=== PATIENT | female | born 1960 | race Caucasian/White ===

== ENCOUNTER → 2016-07-11 | Outpatient (CLI) | payer OTHER ==
[~2016-07-11] VITALS: Ht 165.1 cm; Wt 122.5 kg
[~2016-07-11] MED LIST: ALPR.25T PO; B.AN1CAP; CALC1TAB76; CHOL200041 PO; CYCL10TA9; FLUO40CA12 PO; LEVO25TA5 PO; MELO-195; MULT1TAB69 PO; NAPR-689 PO; NS IV 1000 ML 1,000 ML IV ONE; NS IV 1000 ML 1,000 ML ONE; OMEG1CAP24 PO; ONDANSETRON 4 MG/2 ML (SDV) Z0FRAN IV ONE; PANT40TA2 PO; PHEN37.555; TRAM50TA2 PO; [UNRECOGNIZED DRUG - OTHER]
--- OUTSIDE RECORDS SUMMARY | 2016-07-11 10:40 | XMS REPORT | Continuity of Care Document ---
Author Author [facility] Address Unknown Phone Unavailable Allergies Active Description Code Type Severity Reaction Onset Reported/Identified Relationship to Patient Clinical Status Yes codeine [id number] Drug Allergy Mild N/A 08/02/2009 Yes codeine Drug Allergy N/A N/A 10/19/2010 Medications Problems Date Dx Coded Attending Type Code Diagnosis Diagnosed By 08/05/2009 Ot 214.1 LIPOMA SKIN NEC 10/19/2010 599.70 blood in urine 10/19/2010 599.70 BLOOD IN URINE 10/19/2010 599.70 BLOOD IN URINE 10/19/2010 599.70 BLOOD IN URINE 10/19/2010 MARICEL PIERRE DDS 599.70 BLOOD IN URINE 10/19/2010 ALIYA NGUYEN APRN 599.70 BLOOD IN URINE 10/19/2010 SUSAN CHAIDEZ DO 599.70 BLOOD IN URINE 10/19/2010 JORDYN SANDERS PHD 599.70 BLOOD IN URINE 10/19/2010 JORDYN SANDERS PHD 599.70 BLOOD IN URINE 11/02/2010 789.04 ABDOMINAL PAIN LEFT LOWER QUADRANT 11/02/2010 789.04 ABDOMINAL PAIN LEFT LOWER QUADRANT 11/02/2010 789.04 ABDOMINAL PAIN LEFT LOWER QUADRANT 11/02/2010 789.04 ABDOMINAL PAIN LEFT LOWER QUADRANT 11/02/2010 MARICEL PIERRE DDS 789.04 ABDOMINAL PAIN LEFT LOWER QUADRANT 11/02/2010 ALIYA NGUYEN APRN 789.04 ABDOMINAL PAIN LEFT LOWER QUADRANT 11/02/2010 SUSAN CHAIDEZ DO 789.04 ABDOMINAL PAIN LEFT LOWER QUADRANT 11/02/2010 JORDYN SANDERS PHD 789.04 ABDOMINAL PAIN LEFT LOWER QUADRANT 11/02/2010 JORDYN SANDERS PHD 789.04 ABDOMINAL PAIN LEFT LOWER QUADRANT 11/14/2010 826.0 CLOSED FRACTURE OF ONE OR MORE PHALANGES OF FOOT 11/14/2010 826.0 CLOSED FRACTURE OF ONE OR MORE PHALANGES OF FOOT 11/14/2010 826.0 CLOSED FRACTURE OF ONE OR MORE PHALANGES OF FOOT 11/14/2010 826.0 CLOSED FRACTURE OF ONE OR MORE PHALANGES OF FOOT 11/14/2010 MARICEL PIERRE DDS B 826.0 CLOSED FRACTURE OF ONE OR MORE PHALANGES OF FOOT 11/14/2010 ALIYA NGUYEN APRN 826.0 CLOSED FRACTURE OF ONE OR MORE PHALANGES OF FOOT 11/14/2010 SUSAN CHAIDEZ DO 826.0 CLOSED FRACTURE OF ONE OR MORE PHALANGES OF FOOT 11/14/2010 JORDYN SANDERS PHD 826.0 CLOSED FRACTURE OF ONE OR MORE PHALANGES OF FOOT 11/14/2010 JORDYN SANDERS PHD 826.0 CLOSED FRACTURE OF ONE OR MORE PHALANGES OF FOOT 11/16/2010 783.1 WEIGHT GAIN ABNORMAL 11/16/2010 783.1 WEIGHT GAIN ABNORMAL 11/16/2010 783.1 WEIGHT GAIN ABNORMAL 11/16/2010 783.1 WEIGHT GAIN ABNORMAL 11/16/2010 MARICEL PIERRE DDS 783.1 WEIGHT GAIN ABNORMAL 11/16/2010 ALIYA NGUYEN APRN 783.1 WEIGHT GAIN ABNORMAL 11/16/2010 SUSAN CHAIDEZ DO 783.1 WEIGHT GAIN ABNORMAL 11/16/2010 JORDYN SANDERS PHD 783.1 WEIGHT GAIN ABNORMAL 11/16/2010 JORDYN SANDERS PHD 783.1 WEIGHT GAIN ABNORMAL 12/15/2010 272.4 HYPERLIPIDEMIA 12/15/2010 278.01 OBESITY MORBID 12/15/2010 272.4 HYPERLIPIDEMIA 12/15/2010 278.01 OBESITY MORBID 12/15/2010 272.4 HYPERLIPIDEMIA 12/15/2010 278.01 OBESITY MORBID 12/15/2010 272.4 HYPERLIPIDEMIA 12/15/2010 278.01 OBESITY MORBID 12/15/2010 MARICEL PIERRE DDS B 272.4 HYPERLIPIDEMIA 12/15/2010 MARICEL PIERRE DDS B 278.01 OBESITY MORBID 12/15/2010 ALIYA NGUYEN APRN 272.4 HYPERLIPIDEMIA 12/15/2010 ALIYA NGUYEN APRN 278.01 OBESITY MORBID 12/15/2010 SUSAN CHAIDEZ DO K 272.4 HYPERLIPIDEMIA 12/15/2010 SUSAN CHAIDEZ DO K 278.01 OBESITY MORBID 12/15/2010 JORDYN SANDERS PHD 272.4 HYPERLIPIDEMIA 12/15/2010 JORDYN SANDERS PHD 278.01 OBESITY MORBID 12/15/2010 JORDYN SANDERS PHD 272.4 HYPERLIPIDEMIA 12/15/2010 JORDYN SANDERS PHD 278.01 OBESITY MORBID 01/09/2011 627.3 Vaginitis Postmenopausal Atrophic 01/09/2011 V72.31 Routine Pelvic Exam 01/09/2011 627.3 Vaginitis Postmenopausal Atrophic 01/09/2011 V72.31 Routine Pelvic Exam 01/09/2011 627.3 Vaginitis Postmenopausal Atrophic 01/09/2011 V72.31 Routine Pelvic Exam 01/09/2011 627.3 Vaginitis Postmenopausal Atrophic 01/09/2011 V72.31 Routine Pelvic Exam 01/09/2011 MARICEL PIERRE DDS 627.3 Vaginitis Postmenopausal Atrophic 01/09/2011 MARICEL PIERRE DDS V72.31 Routine Pelvic Exam 01/09/2011 ALIYA NGUYEN APRN 627.3 Vaginitis Postmenopausal Atrophic 01/09/2011 ALIYA NGUYEN APRN V72.31 Routine Pelvic Exam 01/09/2011 SUSAN CHAIDEZ DO 627.3 Vaginitis Postmenopausal Atrophic 01/09/2011 SUSAN CHAIDEZ DO V72.31 Routine Pelvic Exam 01/09/2011 JORDYN SANDERS PHD 627.3 Vaginitis Postmenopausal Atrophic 01/09/2011 JORDYN SANDERS PHD V72.31 Routine Pelvic Exam 01/09/2011 JORDYN SANDERS PHD 627.3 Vaginitis Postmenopausal Atrophic 01/09/2011 JORDYN SANDERS PHD V72.31 Routine Pelvic Exam 01/31/2011 401.9 Unspecified Essential Hypertension 01/31/2011 401.9 Unspecified Essential Hypertension 01/31/2011 401.9 Unspecified Essential Hypertension 01/31/2011 401.9 Unspecified Essential Hypertension 01/31/2011 MARICEL PIERRE DDS 401.9 Unspecified Essential Hypertension 01/31/2011 ALIYA NGUYEN APRN 401.9 Unspecified Essential Hypertension 01/31/2011 SUSAN CHAIDEZ DO 401.9 Unspecified Essential Hypertension 01/31/2011 JORDYN SANDERS PHD 401.9 Unspecified Essential Hypertension 01/31/2011 JORDYN SANDERS PHD 401.9 Unspecified Essential Hypertension 03/20/2011 079.99 VIRAL SYNDROME 03/20/2011 079.99 VIRAL SYNDROME 03/20/2011 079.99 VIRAL SYNDROME 03/20/2011 079.99 VIRAL SYNDROME 03/20/2011 IGNACIO NADINE, MARICEL B 079.99 VIRAL SYNDROME 03/20/2011 ALIYA NGUYEN APRN 079.99 VIRAL SYNDROME 03/20/2011 SUSAN CHAIDEZ DO 079.99 VIRAL SYNDROME 03/20/2011 TOMMY GONZALEZ, JORDYN Morgan 079.99 VIRAL SYNDROME 03/20/2011 TOMMY GONZALEZ, JORDYN Morgan 079.99 VIRAL SYNDROME 09/09/2012 461.9 SINUSITIS ACUTE 09/09/2012 461.9 SINUSITIS ACUTE 09/09/2012 461.9 SINUSITIS ACUTE 09/09/2012 461.9 SINUSITIS ACUTE 09/09/2012 IGNACIOJEANETTE MCCOY, MARICEL B 461.9 SINUSITIS ACUTE 09/09/2012 ALIYA NGUYEN APRN 461.9 SINUSITIS ACUTE 09/09/2012 SUSAN CHAIDEZ DO 461.9 SINUSITIS ACUTE 09/09/2012 TOMMY GONZALEZ, JORDYN Morgan 461.9 SINUSITIS ACUTE 09/09/2012 TOMMY GONZALEZ, JORDYN Morgan 461.9 SINUSITIS ACUTE 09/18/2012 780.79 fatigue 09/18/2012 V76.10 BREAST CANCER SCREENING 09/18/2012 V76.51 COLON CANCER SCREENING 09/18/2012 780.79 fatigue 09/18/2012 V76.10 BREAST CANCER SCREENING 09/18/2012 V76.51 COLON CANCER SCREENING 09/18/2012 780.79 fatigue 09/18/2012 V76.10 BREAST CANCER SCREENING 09/18/2012 V76.51 COLON CANCER SCREENING 09/18/2012 IGNACIO DDS, MARICEL B 780.79 fatigue 09/18/2012 IGNACIO DDS, MARICEL B V76.10 BREAST CANCER SCREENING 09/18/2012 IGNACIO DDS, MARICEL B V76.51 COLON CANCER SCREENING 09/18/2012 ALIYA NGUYEN APRN 780.79 fatigue 09/18/2012 ALIYA NGUYEN APRN V76.10 BREAST CANCER SCREENING 09/18/2012 ALIYA NGUYEN APRN V76.51 COLON CANCER SCREENING 09/18/2012 SUSAN CHAIDEZ DO 780.79 fatigue 09/18/2012 SUSAN CHAIDEZ DO V76.10 BREAST CANCER SCREENING 09/18/2012 SUSAN CHAIDEZ DO V76.51 COLON CANCER SCREENING 09/18/2012 JORDYN SANDERS PHD 780.79 fatigue 09/18/2012 JORDYN SANDERS PHD V76.10 BREAST CANCER SCREENING 09/18/2012 JORDYN SANDERS PHD V76.51 COLON CANCER SCREENING 09/18/2012 JORDYN SANDERS PHD 780.79 fatigue 09/18/2012 JORDYN SANDERS PHD V76.10 BREAST CANCER SCREENING 09/18/2012 JORDYN SANDERS PHD V76.51 COLON CANCER SCREENING 09/24/2012 268.9 VITAMIN D DEFICIENCY 09/24/2012 268.9 VITAMIN D DEFICIENCY 09/24/2012 268.9 VITAMIN D DEFICIENCY 09/24/2012 MARICEL PIERRE DDS 268.9 VITAMIN D DEFICIENCY 09/24/2012 ALIYA NGUYEN APRN 268.9 VITAMIN D DEFICIENCY 09/24/2012 SUSAN CHAIDEZ DO 268.9 VITAMIN D DEFICIENCY 09/24/2012 JORDYN SANDERS PHD 268.9 VITAMIN D DEFICIENCY 09/24/2012 JORDYN SANDERS PHD 268.9 VITAMIN D DEFICIENCY 12/29/2012 SALONI PINA, MICK Ot 202.80 OTH LYMPHOMAS EXTRANODAL SOLID ORGAN U 02/08/2013 ALIYA NGUYEN APRN 733.6 TIETZE'S DISEASE 02/08/2013 SUSAN CHAIDEZ DO 733.6 TIETZE'S DISEASE 02/08/2013 JORDYN SANDERS PHD 733.6 TIETZE'S DISEASE 02/08/2013 JORDYN SANDERS PHD 733.6 TIETZE'S DISEASE 05/07/2013 SUSAN CHAIDEZ DO 719.40 PAIN IN JOINT SITE UNSPECIFIED 05/07/2013 JORDYN SANDERS PHD 719.40 PAIN IN JOINT SITE UNSPECIFIED 05/07/2013 JORDYN SANDERS PHD 719.40 PAIN IN JOINT SITE UNSPECIFIED 08/21/2013 JORDYN SANDERS PHD 300.4 DYSTHYMIC DISORDER 08/21/2013 JORDYN SANDERS PHD 300.4 DYSTHYMIC DISORDER 09/25/2013 JORDYN SANDERS PHD 296.90 MOOD DISORDER NOS 09/25/2013 JORDYN SANDERS PHD 296.90 MOOD DISORDER NOS 09/29/2014 KIRSTY PINA, RIGO A Ot 327.23 OBSTRUCTIVE SLEEP APNEA (ADULT) ( PEDIATR 11/02/2014 FRANK PINA, PADMINI Beard Ot V76.51 SCREEN MAL NEOP-COLON 11/10/2014 FRANK PINA, PADMINI Beard Ot V72.84 12/02/2014 SALONI PINA, MICK Ot 202.80 12/08/2014 SALONI PINA, MICK Ot 202.80 12/09/2014 SALONI PINA, MICK Ot 202.80 12/16/2014 SALONI PINA, MICK Ot 202.80 12/21/2014 MADELIN DIANE DO Ot 780.57 12/21/2014 MADELIN DIAEN DO Ot 786.09 01/12/2015 SALONI PINA, VANDANA-SMOOTH Ot 202.80 01/27/2015 SALONI PINA, MICK Ot 202.80 OTH LYMPHOMAS EXTRANODAL SOLID ORGAN U 02/01/2015 CARLOS CANTU DOG TRAINER Ot Z12.31 02/04/2015 CARLOS CANTU DOG TRAINER Ot Z12.31 02/15/2015 CARLOS CANTU DOG TRAINER Ot Z12.31 02/26/2015 Ot R92.8 03/05/2015 Ot 599.70 03/05/2015 Ot 789.09 03/05/2015 Ot V76.12 03/05/2015 SUSAN CHAIDEZ DO Ot V76.12 03/05/2015 SALONI PINA, MICK Ot 202.80 03/05/2015 FRANK PINA, PADMINI Beard Ot V72.84 03/05/2015 MADELIN DIANE DO Ot 780.57 03/05/2015 MADELIN DIANE DO Ot 786.09 03/05/2015 CARLOS CANTU DOG TRAINER Ot Z12.31 03/05/2015 Ot R92.8 04/21/2015 MADELIN DIANE DO Ot 780.57 04/21/2015 MADELIN DIANE DO Ot 786.09 04/21/2015 Ot R92.8 01/20/2016 Ot 599.70 HEMATURIA, UNSPECIFIED 01/20/2016 Ot 789.09 ABDOMINAL PAIN, OTHER SPECIFIED SITE 01/20/2016 Ot V76.12 OTH SCREEN MAMMO-MALIGN NEOPLASM OF [place]ESH[place] 01/20/2016 SUSAN CHAIDEZ DO Ot V76.12 OTH SCREEN MAMMO-MALIGN NEOPLASM OF [place] 01/20/2016 SALONI PINA, MICK Ot 202.80 OTH LYMPHOMAS EXTRANODAL SOLID ORGAN U 01/20/2016 FRANK PINA, PADMINI Beard Ot V72.84 EXAM PRE-OPERATIVE NOS 01/20/2016 MADELIN DIANE DO Ot 780.57 UNSPECIFIED SLEEP APNEA 01/20/2016 MADELIN DIANE DO Ot 786.09 RESPIRATORY ABNORM NEC 01/20/2016 CARLOS CANTU Ot Z12.31 ENCNTR SCREEN MAMMOGRAM FOR MALIGNANT NE 01/20/2016 Ot R92.8 OTH ABN AND INCONCLUSIVE FINDINGS ON DX 01/21/2016 TIFFANI DE SANTIAGO DIRECTOR ORANGE Ot L98.9 DISORDER OF THE SKIN AND SUBCUTANEOUS TI 01/21/2016 TIFFANI DE SANTIAGO DIRECTOR ORANGE Ot R13.10 DYSPHAGIA, UNSPECIFIED 01/21/2016 TIFFANI DE SANTIAGO DIRECTOR ORANGE Ot R49.0 DYSPHONIA 02/22/2016 TIFFANI DE SANTIAGO DIRECTOR ORANGE Ot L98.9 DISORDER OF THE SKIN AND SUBCUTANEOUS TI 02/22/2016 TIFFANI DE SANTIAGO DIRECTOR ORANGE Ot R13.10 DYSPHAGIA, UNSPECIFIED 02/22/2016 TIFFANI DE SANTIAGO DIRECTOR ORANGE Ot R49.0 DYSPHONIA 02/23/2016 TIFFANI DE SANTIAGO DIRECTOR ORANGE Ot M54.5 LOW BACK PAIN 02/28/2016 Ot 599.70 HEMATURIA, UNSPECIFIED 02/28/2016 Ot 789.09 ABDOMINAL PAIN, OTHER SPECIFIED SITE 02/28/2016 Ot V76.12 OTH SCREEN MAMMO-MALIGN NEOPLASM OF [place] 02/28/2016 SUSAN CHAIDEZ DO Ot V76.12 OTH SCREEN MAMMO-MALIGN NEOPLASM OF [place] 02/28/2016 SALONI PINA, MICK Ot 202.80 OTH LYMPHOMAS EXTRANODAL SOLID ORGAN U 02/28/2016 FRANK PINA, PADMINI Beard Ot V72.84 EXAM PRE-OPERATIVE NOS 02/28/2016 MADELIN DIANE DO Ot 780.57 UNSPECIFIED SLEEP APNEA 02/28/2016 MADELIN DIANE DO Ot 786.09 RESPIRATORY ABNORM NEC 02/28/2016 CARLOS CANTU Ot Z12.31 ENCNTR SCREEN MAMMOGRAM FOR MALIGNANT NE 02/28/2016 Ot R92.8 OTH ABN AND INCONCLUSIVE FINDINGS ON DX 02/28/2016 TIFFANI DE SANTIAGO DIRECTOR ORANGE Ot L98.9 DISORDER OF THE SKIN AND SUBCUTANEOUS TI 02/28/2016 TIFFANI DE SANTIAGO DIRECTOR ORANGE Ot R13.10 DYSPHAGIA, UNSPECIFIED 02/28/2016 TIFFANI DE SANTIAGO DIRECTOR ORANGE Ot R49.0 DYSPHONIA 02/28/2016 TIFFANI DE SANTIAGO DIRECTOR ORANGE Ot M54.5 LOW BACK PAIN 03/02/2016 Ot 599.70 HEMATURIA, UNSPECIFIED 03/02/2016 Ot 789.09 ABDOMINAL PAIN, OTHER SPECIFIED SITE 03/02/2016 Ot V76.12 OTH SCREEN MAMMO-MALIGN NEOPLASM OF [place] 03/02/2016 DM RAINES SUSAN K Ot V76.12 OTH SCREEN MAMMO-MALIGN NEOPLASM OF [place] 03/02/2016 SALONI PINA, MICK Ot 202.80 OTH LYMPHOMAS EXTRANODAL SOLID ORGAN U 03/02/2016 FRANK PINA, PADMINI Beard Ot V72.84 EXAM PRE-OPERATIVE NOS 03/02/2016 MADELIN DIANE DO Ot 780.57 UNSPECIFIED SLEEP APNEA 03/02/2016 MADELIN DIANE DO Ot 786.09 RESPIRATORY ABNORM NEC 03/02/2016 CARLOS CANTU Ot Z12.31 ENCNTR SCREEN MAMMOGRAM FOR MALIGNANT NE 03/02/2016 Ot R92.8 OTH ABN AND INCONCLUSIVE FINDINGS ON DX 03/02/2016 TIFFANI DE SANTIAGO DIRECTOR ORANGE Ot L98.9 DISORDER OF THE SKIN AND SUBCUTANEOUS TI 03/02/2016 TIFFANI DE SANTIAGO DIRECTOR ORANGE Ot R13.10 DYSPHAGIA, UNSPECIFIED 03/02/2016 TIFFANI DE SANTIAGO DIRECTOR ORANGE Ot R49.0 DYSPHONIA 03/02/2016 TIFFANI DE SANTIAGO DIRECTOR ORANGE Ot M54.5 LOW BACK PAIN 03/02/2016 Ot 599.70 HEMATURIA, UNSPECIFIED 03/02/2016 Ot 789.09 ABDOMINAL PAIN, OTHER SPECIFIED SITE 03/02/2016 Ot V76.12 OTH SCREEN MAMMO-MALIGN NEOPLASM OF [place] 03/02/2016 DM RAINES SUSAN K Ot V76.12 OTH SCREEN MAMMO-MALIGN NEOPLASM OF [place] 03/02/2016 SALONI PINA, MICK Ot 202.80 OTH LYMPHOMAS EXTRANODAL SOLID ORGAN U 03/02/2016 FRANK PINA, PADMINI Beard Ot V72.84 EXAM PRE-OPERATIVE NOS 03/02/2016 MADELIN DIANE DO Ot 780.57 UNSPECIFIED SLEEP APNEA 03/02/2016 MADELIN DIANE DO Ot 786.09 RESPIRATORY ABNORM NEC 03/02/2016 CARLOS CANTU Ot Z12.31 ENCNTR SCREEN MAMMOGRAM FOR MALIGNANT NE 03/02/2016 Ot R92.8 OTH ABN AND INCONCLUSIVE FINDINGS ON DX 03/02/2016 TIFFANI DE SANTIAGO DIRECTOR ORANGE Ot L98.9 DISORDER OF THE SKIN AND SUBCUTANEOUS TI 03/02/2016 TIFFANI DE SANTIAGO DIRECTOR ORANGE Ot R13.10 DYSPHAGIA, UNSPECIFIED 03/02/2016 TIFFANI DE SANTIAGO DIRECTOR ORANGE Ot R49.0 DYSPHONIA 03/02/2016 TIFFANI DE SANTIAGO DIRECTOR ORANGE Ot M54.5 LOW BACK PAIN 03/03/2016 PADMINI MARIE MD Ot K21.9 GASTRO-ESOPHAGEAL REFLUX DISEASE WITHOUT 03/03/2016 PADMINI MARIE MD Ot Z01.818 ENCOUNTER FOR OTHER PREPROCEDURAL EXAMIN 03/03/2016 PADMINI MARIE MD Ot Z11.2 ENCOUNTER FOR SCREENING FOR OTHER BACTER 03/06/2016 PADMINI MARIE MD Ot K25.9 GASTRIC ULCER, UNSP ACUTE OR CHRONIC, 03/06/2016 PADMINI MARIE MD Ot K31.7 POLYP OF STOMACH AND DUODENUM 03/06/2016 PADMINI MARIE MD Ot K44.9 DIAPHRAGMATIC HERNIA WITHOUT OBSTRUCTION 03/09/2016 PADMINI MARIE MD Ot K80.20 CALCULUS OF GALLBLADDER W/O CHOLECYSTITI 03/31/2016 PADMINI MARIE MD Ot K80.20 CALCULUS OF GALLBLADDER W/O CHOLECYSTITI 03/31/2016 PADMINI MARIE MD Ot Z01.818 ENCOUNTER FOR OTHER PREPROCEDURAL EXAMIN 03/31/2016 PADMINI MARIE MD Ot K80.20 CALCULUS OF GALLBLADDER W/O CHOLECYSTITI 03/31/2016 PADMINI MARIE MD Ot Z01.818 ENCOUNTER FOR OTHER PREPROCEDURAL EXAMIN 04/04/2016 PADMINI MARIE MD Ot K80.20 CALCULUS OF GALLBLADDER W/O CHOLECYSTITI 04/04/2016 PADMINI MARIE MD Ot Z01.818 ENCOUNTER FOR OTHER PREPROCEDURAL EXAMIN 04/05/2016 FRANK PINA, PADMINI Beard Ot K80.20 CALCULUS OF GALLBLADDER W/O CHOLECYSTITI 04/05/2016 PADMINI MARIE MD Ot Z11.2 ENCOUNTER FOR SCREENING FOR OTHER BACTER 04/05/2016 FRANK PINA, PADMINI Beard Ot K80.20 CALCULUS OF GALLBLADDER W/O CHOLECYSTITI 04/05/2016 PADMINI MARIE MD Ot Z01.818 ENCOUNTER FOR OTHER PREPROCEDURAL EXAMIN 04/06/2016 PADMINI MARIE MD Ot K80.20 CALCULUS OF GALLBLADDER W/O CHOLECYSTITI 04/06/2016 PADMINI MARIE MD Ot Z11.2 ENCOUNTER FOR SCREENING FOR OTHER BACTER Procedures Code Description [place] [address] ROUTINE VENIPUNCTURE 09/19/2012 87155 CBC 09/19/2012 87084 CMP 09/19/2012 53070 LIPID PANEL 09/19 4184396 GFR CALC (RESULT ONLY) 09/19/2012 09870 TSH 09/19/2012 48412 VITAMIN D 25-HYDROXY (D2,D3, TOTAL) 09/19/2012 77575 MAMMOGRAM, SCREENING 09/24/2012 39975 HEMOCCULT 2012 46649 ROUTINE VENIPUNCTURE 12/27/2012 83624 LIPID PANEL 12/27 67217 VITAMIN D 25-HYDROXY (D2,D3, TOTAL) 12/27/2012 92965 XRAY LUMBAR SPINE 2 OR 3 VIEWS 05/07/2013 78904 PSYCH DIAGNOSTIC EVALUATION 09/25/2013 09632 PSYTX PT&/FAMILY 45 MINUTES 10/10/2013 Results Test Result Range Automated blood complete blood count (hemogram) panel - 04/05/16 07:21 Blood leukocytes automated count (number/volume) 7.7 10*3/ uL 4.3-11.0 Blood erythrocytes automated count (number/volume) 4.04 10*6 /uL 4.35-5.85 Venous blood hemoglobin measurement (mass/volume) 12.4 g/dL 11.5-16.0 Blood hematocrit (volume fraction) 38 % 35-52 Automated erythrocyte mean corpuscular volume 93 [foz_us] 80-99 Automated erythrocyte mean corpuscular hemoglobin (mass per erythrocyte) 31 pg 25-34 Automated erythrocyte mean corpuscular hemoglobin concentration measurement ( mass/volume) 33 g/dL 32-36 Automated erythrocyte distribution width ratio 12.3 % 10.0-14.5 Automated blood platelet count (count/volume) 242 10*3/uL 130-400 Automated blood platelet mean volume measurement 10.2 [foz_ us] 7.4-10.4 Comprehensive metabolic panel - 04/05/16 07:21 Serum or plasma sodium measurement (moles/volume) 137 mmol/ L 135-145 Serum or plasma potassium measurement (moles/volume) 3.9 mmol/L 3.6-5.0 Serum or plasma chloride measurement (moles/volume) 104 mmol /L 98-107 Carbon dioxide 23 mmol/L 21-32 Serum or plasma anion gap determination (moles/volume) 10 mmol/L 5-14 Serum or plasma urea nitrogen measurement (mass/volume) 14 mg/dL 7-18 Serum or plasma creatinine measurement (mass/volume) 0.79 mg /dL 0.60-1.30 Serum or plasma urea nitrogen/creatinine mass ratio 18 NRG Serum or plasma creatinine measurement with calculation of estimated glomerular filtration rate > NRG Serum or plasma glucose measurement (mass/volume) 97 mg/dL 70-105 Serum or plasma calcium measurement (mass/volume) 9.0 mg/dL 8.5-10.1 Serum or plasma total bilirubin measurement (mass/volume) 0.4 mg/dL 0.1-1.0 Serum or plasma alkaline phosphatase measurement (enzymatic activity/volume) 27 U/L 40-136 Serum or plasma aspartate aminotransferase measurement (enzymatic activity/ volume) 14 U/L 5-34 Serum or plasma alanine aminotransferase measurement (enzymatic activity/volume ) 13 U/L 0-55 Serum or plasma protein measurement (mass/volume) 6.8 g/dL 6.4-8.2 Serum or plasma albumin measurement (mass/volume) 3.6 g/dL 3.2-4.5 Methicillin resistant Staphylococcus aureus (MRSA) screening culture - 07:21 MRSA SCREEN RESULT MRSA ISOLATED NRG Encounters ACCT No. Visit Date/Time Discharge Status Pt. Type Provider Facility Loc./Unit Complaint [id number] 10/10/2013 10:01:00 10/10/2013 23: 59:59 PRETTY Outpatient JORDYN SANDERS PHD [id number] 09/25/2013 09:58:00 09/25/2013 23: 59:59 CLS Outpatient JOSEPHINE SANDERS PHDWIN D [id number] 05/07/2013 11:16:00 05/07/2013 23: 59:59 CLS Outpatient SUSAN CHAIDEZ DO [id number] 02/08/2013 10:51:00 02/08/2013 23: 59:59 CLS Outpatient ALIYA NGUYEN APRN [id number] 10/10/2012 14:53:00 10/10/2012 23: 59:59 CLS Outpatient MARICEL PIERRE DDS [id number] 12/27/2012 10:08:00 Document Registration [id number] 10/10/2012 14:53:00 Document Registration [id number] 09/19/2012 09:34:00 Document Registration [id number] 09/09/2012 13:18:00 Document Registration
[2016-07-11 10:55] VITALS: BP 139/70
[2016-07-11 11:08] LABS: MEAN PLATELET VOLUME 9.9 FL (7.4-10.4); RED BLOOD COUNT 4.54 10^6/uL (4.35-5.85); RED CELL DISTRIBUTION WIDTH 12.5 % (10.0-14.5); WHITE BLOOD COUNT 6.7 10^3/uL (4.3-11.0)
[2016-07-11 11:27] LABS: ALANINE AMINOTRANSFERASE 16 U/L (0-55); ALBUMIN 3.8 G/DL (3.2-4.5); ANION GAP 13 MMOL/L (5-14); ASPARTATE AMINO TRANSFERASE 14 U/L (5-34); BILIRUBIN,TOTAL 0.6 MG/DL (0.1-1.0); BLOOD UREA NITROGEN 18 MG/DL (7-18); BUN/CREATININE RATIO 22; CALCIUM 9.6 MG/DL (8.5-10.1); CARBON DIOXIDE 23 MMOL/L (21-32); CHLORIDE 104 MMOL/L (98-107); CREATININE SERUM 0.82 MG/DL (0.60-1.30); GFR ESTIMATED > 60; GLUCOSE 89 MG/DL (70-105); POTASSIUM 3.9 MMOL/L (3.6-5.0); SODIUM 140 MMOL/L (135-145); TOTAL PROTEIN 7.4 G/DL (6.4-8.2); hs C REACTIVE PROTEIN 0.69 MG/DL (0.00-0.50)
[2016-07-11 11:48] LABS: THYROID STIMULATING HORMONE 0.95 UIU/ML (0.35-4.94)
[2016-07-14 12:54] LABS: RHEUMATOID FACTOR <20 IU/ML (0-20)
[2016-07-14 12:55] LABS: RA FACTOR INTP Negative (Negative)
== END ==
LOC: SDC 10:35
PROVIDERS: ATTEND Nurse Practitioner Family
DX: E86.0 Dehydration (principal); R10.13 Epigastric pain; E55.9 Vitamin D deficiency, unspecified; M25.50 Pain in unspecified joint
CPT/HCPCS: 36415; 80053; 82306; 84439; 84443; 85027; 85652; 86038; 86039; 86141; 86430

== ENCOUNTER → 2016-07-26 | Outpatient (CLI) | payer OTHER ==
[~2016-07-26] VITALS: Ht 165.1 cm; Wt 122.5 kg
[~2016-07-26] MED LIST changes: -NS IV 1000 ML 1,000 ML IV ONE; +NS IV 1000 ML 1,000 ML IV SCH; -ONDANSETRON 4 MG/2 ML (SDV) Z0FRAN IV ONE; +ONDANSETRON 4 MG/2 ML (SDV) Z0FRAN IVP ONE; +ONDANSETRON 4 MG/2 ML (SDV) Z0FRAN ONE
[2016-07-26 11:40] VITALS: BP 139/79
[2016-07-26 12:40] VITALS: BP 139/79
== END ==
LOC: SDC 10:43
PROVIDERS: ATTEND Nurse Practitioner Family
DX: E86.0 Dehydration (principal); K52.9 Noninfective gastroenteritis and colitis, unspecified
CPT/HCPCS: 96360; 96365

== ENCOUNTER → 2016-08-04 | Outpatient (CLI) | payer OTHER ==
[~2016-08-04] MED LIST changes: -NS IV 1000 ML 1,000 ML IV SCH; -NS IV 1000 ML 1,000 ML ONE; -ONDANSETRON 4 MG/2 ML (SDV) Z0FRAN IVP ONE; -ONDANSETRON 4 MG/2 ML (SDV) Z0FRAN ONE
--- NOTE | 2016-08-04 13:42 | Diagnostic Imaging Report ---
PROCEDURE: MRI lumbar spine. TECHNIQUE: Multiplanar, multisequence MRI of the lumbar spine was performed without contrast. INDICATION: Back pain. FINDINGS: There is satisfactory alignment of the lumbar spine. The vertebral body heights are preserved. The discs demonstrate desiccation with no significant disc height loss. There is, however, endplate notching at multiple levels compatible with Schmorl's nodes. 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 These are at S2 level. The cauda equina and conus medullaris appear grossly unremarkable. No suspicious marrow signal abnormality. T12/L1: There is no disc herniation. No spinal canal or foraminal stenosis. L1/L2: There is a minimal disc bulge. Mild facet hypertrophy is seen. No central canal, lateral recess or foraminal stenosis, however, is seen. L2/L3: There is a minimal disc bulge and mild facet hypertrophy. No central canal or lateral recess stenosis. No foraminal stenosis. L3/L4: No disc herniation. There is bilateral mild to moderate facet arthropathy. No central canal or lateral recess stenosis. No foraminal stenosis. L4/L5: There is no disc herniation. There is bilateral moderate to severe facet arthropathy, worse on the left side. No central canal or lateral recess stenosis. No foraminal narrowing. L5/S1: There is minimal disc bulge. There is mild to moderate facet hypertrophy, more on the right side. No central canal, lateral recess or foraminal stenosis. IMPRESSION: Lower lumbar spine facet arthropathy, worst on the left side at L5/S1. Relatively mild disc degenerative changes. Dictated by: Dictated on workstation # [id number]
== END ==
LOC: RAD 07:46
PROVIDERS: ATTEND Nurse Practitioner Family
DX: M47.816 Spondylosis without myelopathy or radiculopathy, lumbar region (principal)
CPT/HCPCS: 72148

== ENCOUNTER → 2016-08-14 | Outpatient (CLI) | payer OTHER ==
[2016-08-14 13:23] LABS: BASOPHILS % (AUTO) 1 % (0-10); EOSINOPHILS # (AUTO) 0.2 10^3/uL (0.0-0.3); EOSINOPHILS % (AUTO) 3 % (0-10); LYMPHOCYTES # (AUTO) 1.4 X 10^3 (1.0-4.0); LYMPHOCYTES % (AUTO) 29 % (12-44); MEAN CORPUSCULAR HEMOGLOBIN 30 PG (25-34); MEAN CORPUSCULAR HGB CONC 32 G/DL (32-36); MEAN CORPUSCULAR VOLUME 94 FL (80-99); MEAN PLATELET VOLUME 9.5 FL (7.4-10.4); MONOCYTES # (AUTO) 0.4 X 10^3 (0.0-1.0); MONOCYTES % (AUTO) 9 % (0-12); NEUTROPHILS # (AUTO) 2.9 X 10^3 (1.8-7.8); NEUTROPHILS % (AUTO) 59 % (42-75); PLATELET COUNT 246 10^3/uL (130-400); RED BLOOD COUNT 4.11 10^6/uL (4.35-5.85); RED CELL DISTRIBUTION WIDTH 12.7 % (10.0-14.5); WHITE BLOOD COUNT 4.9 10^3/uL (4.3-11.0)
[2016-08-14 14:01] LABS: ALANINE AMINOTRANSFERASE 17 U/L (0-55); ALBUMIN 3.8 G/DL (3.2-4.5); ANION GAP 8 MMOL/L (5-14); ASPARTATE AMINO TRANSFERASE 14 U/L (5-34); BILIRUBIN,TOTAL 0.6 MG/DL (0.1-1.0); BLOOD UREA NITROGEN 15 MG/DL (7-18); BUN/CREATININE RATIO 18; CALCIUM 9.2 MG/DL (8.5-10.1); CARBON DIOXIDE 29 MMOL/L (21-32); CHLORIDE 105 MMOL/L (98-107); CREATININE SERUM 0.84 MG/DL (0.60-1.30); GFR ESTIMATED > 60; GLUCOSE 105 MG/DL (70-105); POTASSIUM 4.1 MMOL/L (3.6-5.0); SODIUM 142 MMOL/L (135-145)
[2016-08-14 15:27] LABS: LACTATE DEHYDROGENASE 219 U/L (125-220)
[2016-08-14 15:49] LABS: THYROID STIMULATING HORMONE 2.05 UIU/ML (0.35-4.94)
[2016-08-15 07:47] LABS: IMMUNOGLOBULIN IGA 423 mg/dL (71-263); IMMUNOGLOBULIN IGG 1162 mg/dL (672-1680)
[2016-08-15 08:52] LABS: IMMUNOGLOBULIN IGM 101 mg/dL (47-209)
== END ==
LOC: ONC 13:03
PROVIDERS: ATTEND Internal Medicine Hematology & Oncology
DX: C83.30 Diffuse large B-cell lymphoma, unspecified site (principal); E66.01 Morbid (severe) obesity due to excess calories; G47.30 Sleep apnea, unspecified
CPT/HCPCS: 36415; 80053; 82784; 83615; 84443; 85025; 99213

== ENCOUNTER → 2016-08-23 | Outpatient (CLI) | payer OTHER ==
[~2016-08-23] MED LIST changes: +BARIUM SUSPENSION 2.1% (VANILLA SILQ) 450 ML PO ONE; +CATHETER FLUSH 10 ML SYR IV PRN; +IOHEXOL 350 MG/ML 100 ML (OMNIPAQUE 350) VIAL IV ONE; +NS 100 ML (IVPB) BAG IV ONE
--- NOTE | 2016-08-23 11:42 | Diagnostic Imaging Report ---
PROCEDURE: CT abdomen and pelvis with contrast. TECHNIQUE: Multiple contiguous axial images were obtained through the abdomen and pelvis after administration of intravenous contrast. INDICATION: Abdominal pain. Nausea and vomiting. History of lymphoma. CONTRAST: 100 mL of Omnipaque 350 is administered intravenously. COMPARISON: 11/10/2010. FINDINGS: The lung bases appear clear. The liver, the spleen, the pancreas, and adrenal glands appear unremarkable. The kidneys have symmetric enhancement and excretion. No hydronephrosis. The abdominal aorta is normal in caliber. No periaortic significantly enlarged lymph nodes seen. There is a tiny fat-containing umbilical hernia. There is no bowel obstruction. There is mild thickening of the urinary bladder wall. There is suggestion of prior hysterectomy and prior cholecystectomy. Correlate with surgical history. No free fluid or fluid collection in the abdomen or pelvis seen. No lymphadenopathy or soft tissue mass is seen in the abdomen or pelvis. The osseous structures appear grossly unremarkable. IMPRESSION: 1. Tiny fat-containing umbilical hernia. 2. Mild thickening of the urinary bladder wall, could correlate with cystitis. Correlate clinically. Dictated by: Dictated on workstation # [id number]
== END ==
LOC: RAD 08:50
PROVIDERS: ATTEND Internal Medicine Hematology & Oncology
DX: K42.9 Umbilical hernia without obstruction or gangrene (principal); C83.30 Diffuse large B-cell lymphoma, unspecified site
CPT/HCPCS: 74177

== ENCOUNTER 2016-08-30 12:31 | Outpatient (RCR) | payer OTHER ==
[~2016-08-30 12:31] MED LIST changes: -BARIUM SUSPENSION 2.1% (VANILLA SILQ) 450 ML PO ONE; -CATHETER FLUSH 10 ML SYR IV PRN; -IOHEXOL 350 MG/ML 100 ML (OMNIPAQUE 350) VIAL IV ONE; -NS 100 ML (IVPB) BAG IV ONE
== END 2016-11-28 | disposition home or self-care (01) ==
LOC: ONC 12:31
PROVIDERS: ATTEND Internal Medicine Hematology & Oncology
DX: C83.30 Diffuse large B-cell lymphoma, unspecified site (principal); E78.5 Hyperlipidemia, unspecified; E03.9 Hypothyroidism, unspecified; G47.30 Sleep apnea, unspecified; E66.01 Morbid (severe) obesity due to excess calories; Z68.42 Body mass index [BMI] 45.0-49.9, adult; R53.83 Other fatigue; R93.41 Abnormal radiologic findings on diagnostic imaging of renal pelvis, ureter, or bladder; Z79.899 Other long term (current) drug therapy
CPT/HCPCS: 99213

== ENCOUNTER → 2016-09-08 | Outpatient (CLI) | payer OTHER ==
[2016-09-08 15:23] LABS: ALANINE AMINOTRANSFERASE 23 U/L (0-55); ALBUMIN 3.7 G/DL (3.2-4.5); ANION GAP 7 MMOL/L (5-14); ASPARTATE AMINO TRANSFERASE 21 U/L (5-34); BILIRUBIN,TOTAL 0.8 MG/DL (0.1-1.0); BLOOD UREA NITROGEN 11 MG/DL (7-18); BUN/CREATININE RATIO 15; CALCIUM 9.2 MG/DL (8.5-10.1); CARBON DIOXIDE 29 MMOL/L (21-32); CHLORIDE 105 MMOL/L (98-107); CHOLESTEROL 166 MG/DL (< 200); CREATININE SERUM 0.74 MG/DL (0.60-1.30); DIRECT LDL 112 MG/DL (1-129); GFR ESTIMATED > 60; GLUCOSE 99 MG/DL (70-105); POTASSIUM 3.9 MMOL/L (3.6-5.0); SODIUM 141 MMOL/L (135-145); TOTAL PROTEIN 7.2 G/DL (6.4-8.2); TRIGLYCERIDES 94 MG/DL (<150); VLDL CHOLESTEROL 19 MG/DL (5-40)
== END ==
LOC: LAB 14:42
PROVIDERS: ATTEND Family Medicine
DX: E78.2 Mixed hyperlipidemia (principal); Z79.899 Other long term (current) drug therapy
CPT/HCPCS: 36415; 80053; 80061

== ENCOUNTER 2017-01-13 16:25 | Inpatient (IN) | payer OTHER ==
[~2017-01-13] VITALS: Ht 162.6 cm; Wt 132.6 kg
[2017-01-13] MEDS ORDERED: fentaNYL INJECTION 100 MCG/2 ML AMP IVP STA (16:34)
[2017-01-13] MEDS ORDERED: NS IV 1000 ML 1,000 ML IV ONE ×2 (16:38→17:37)
[2017-01-13] MEDS ORDERED: ADENOSINE 6 MG/2 ML (ADENOCARD) VIAL IV ONE (16:39)
[2017-01-13 16:43] LABS: BASOPHILS % (AUTO) 0 % (0-10); EOSINOPHILS % (AUTO) 0 % (0-10); LYMPHOCYTES # (AUTO) 1.2 X 10^3 (1.0-4.0); LYMPHOCYTES % (AUTO) 12 % (12-44); MEAN CORPUSCULAR HEMOGLOBIN 30 PG (25-34); MEAN CORPUSCULAR HGB CONC 33 G/DL (32-36); MEAN CORPUSCULAR VOLUME 91 FL (80-99); MEAN PLATELET VOLUME 9.6 FL (7.4-10.4); MONOCYTES # (AUTO) 0.5 X 10^3 (0.0-1.0); MONOCYTES % (AUTO) 5 % (0-12); NEUTROPHILS # (AUTO) 8.2 X 10^3 (1.8-7.8); NEUTROPHILS % (AUTO) 83 % (42-75); PLATELET COUNT 241 10^3/uL (130-400); RED BLOOD COUNT 4.72 10^6/uL (4.35-5.85); RED CELL DISTRIBUTION WIDTH 12.7 % (10.0-14.5); WHITE BLOOD COUNT 9.9 10^3/uL (4.3-11.0)
[2017-01-13] MEDS ORDERED: SODIUM CHLORIDE (ADD-VANTAGE) 100 ML IV ONE (16:46)
[2017-01-13] MEDS ORDERED: DILTIAZEM 100 MG/VIAL (CARDIZEM) ADD-VANTAGE IV ONE (16:46)
[2017-01-13] MEDS ORDERED: DILTIAZEM 25 MG/5 ML INJ (CARDIZEM) VIAL ONE (16:47)
[2017-01-13 16:53] LABS: INR 1.1 (0.8-1.4); PROTHROMBIN TIME PATIENT 13.8 SEC (12.2-14.7)
[2017-01-13] MEDS ORDERED: ASPIRIN 81 MG CHEW (CHILDREN'S ASA) PO STA (16:53)
[2017-01-13] MEDS ORDERED: APIXABAN 5 MG (ELIQUIS) TABLET PO ONE (17:00)
[2017-01-13] MEDS ORDERED: ONDANSETRON 4 MG/2 ML (SDV) Z0FRAN IVP ONE (17:00)
[2017-01-13 17:02] LABS: ALANINE AMINOTRANSFERASE 18 U/L (0-55); ALBUMIN 3.6 GM/DL (3.2-4.5); ANION GAP 12 MMOL/L (5-14); ASPARTATE AMINO TRANSFERASE 19 U/L (5-34); BILIRUBIN,TOTAL 0.6 MG/DL (0.1-1.0); BLOOD UREA NITROGEN 15 MG/DL (7-18); BUN/CREATININE RATIO 14; CALCIUM 8.6 MG/DL (8.5-10.1); CARBON DIOXIDE 24 MMOL/L (21-32); CHLORIDE 101 MMOL/L (98-107); CREATININE SERUM 1.04 MG/DL (0.60-1.30); GFR ESTIMATED 55; GLUCOSE 121 MG/DL (70-105); MAGNESIUM 1.5 MG/DL (1.8-2.4); POTASSIUM 3.3 MMOL/L (3.6-5.0); SODIUM 137 MMOL/L (135-145); TOTAL PROTEIN 7.3 GM/DL (6.4-8.2)
--- NOTE | 2017-01-13 17:13 | ED Cardiac General ---
History of Present Illness General Chief Complaint: Cardiac/General Problems Stated Complaint: SOA,UNCONTROLLABLE DIARRHEA Nursing Triage Note: patient reports cough x 1 week and developed diarrhea last night, patient reports is very weak and unable to control diarrhea Source: patient Exam Limitations: no limitations History of Present Illness Time seen by provider: 16:31 Initial Comments Here with complaint of cough 1 week and diarrhea for the last week. States that she is having diarrhea multiple times daily. Complains of overall weakness and tiredness. On arrival noted to have elevated heart rate in the 170s. Has had some nausea. Denies breathing problems but does complain of chest tightness. Denies blood in her stool. Timing/Duration: 1 week, getting worse Severity: moderate Location: central Activities at Onset: none Prior CP/Workup: no prior chest pain NTG SL CASE PACKER: No ASA po CASE PACKER: No Associated Systoms: Chest Pain (tightness only), Cough, Loss of Appetite, Malaise, Nausea/Vomiting, Weakness Allergies and Home Medications Allergies Coded Allergies: codeine (Unverified Allergy, Mild, 08/02/09) Home Medications Alprazolam 0.25 Mg Tab, 0.25 MG PO HS, (Reported) Cholecalciferol (Vitamin D3) 2,000 Unit Tablet, 2,000 UNIT PO DAILY, (Reported) Fluoxetine HCl 40 Mg Capsule, 40 MG PO DAILY, (Reported) Levothyroxine Sodium 25 Mcg Tablet, 25 MCG PO DAILY, (Reported) Multivitamin 1 Each Tablet, 1 EACH PO DAILY, (Reported) [place]-3 Fatty Acids/Fish Oil 1 Each Capsule.dr, 1 TAB PO DAILY, (Reported) Pantoprazole Sodium 40 Mg Tablet.dr, 40 MG PO DAILY, #30 Ref 6 Prescribed by: PADMINI MARIE on 03/06/16 0850 Tramadol HCl 50 Mg Tablet, 100 MG PO Q12H PRN for ABDOMINAL PAIN, #30 Prescribed by: PADMINI MARIE on 04/05/16 0940 Review of Systems Constitutional: see HPI, chills, malaise, weakness EENTM: No Symptoms Reported Respiratory: See HPI, Cough, Shortness of Air Cardiovascular: See HPI, Irregular Heart Rate, Lightheadedness Gastrointestinal: Diarrhea, Nausea Genitourinary: No Symptoms Reported Musculoskeletal: no symptoms reported Skin: no symptoms reported Psychiatric/Neurological: See HPI, Denies Headache, Weakness All Other Systems Reviewed Negative Unless Noted: Yes Past Juzkyjf-Pdmcax-Maynta Hx Patient Social History Alcohol Use: Denies Use Recreational Drug Use: No Smoking Status: Never a Smoker Recent Foreign Travel: No Contact w/Someone Who Travel: No Recent Infectious Disease Expo: No Recent Hopitalizations: No Immunizations Up To Date Tetanus Booster (TDap): Unknown Date of Pneumonia Vaccine: Nov 02, 2009 Date of Influenza Vaccine: Jan 31, 2016 Seasonal Allergies Seasonal Allergies: No Surgeries History of Surgeries: Yes Surgeries: Appendectomy, Hysterectomy Respiratory History of Respiratory Disorde: Yes Respiratory Disorders: Sleep Apnea Currently Using CPAP: Yes Cardiovascular History of Cardiac Disorders: No Neurological History of Neurological Disord: No Reproductive System Hx Reproductive Disorders: No Sexually Transmitted Disease: No 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 Gastrointestinal History of Gastrointestinal Di: Yes Gastrointestinal Disorders: Gastroesophageal Reflux, Chronic Diarrhea Musculoskeletal History of Musculoskeletal Dis: Yes (OSTEO ARTHRITIS) Musculoskeletal Disorders: Arthritis, Chronic Back Pain Endocrine History of Endocrine Disorders: Yes Endocrine Disorders: Hypothyroidsim HEENT Loss of Vision: Bilateral Hearing Impairment: Denies Cancer History of Cancer: Yes Cancer: Lymphoma, Uterine Psychosocial 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 of 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 Problem: 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 (STRESS) Behavioral Health Disorders: Anxiety Integumentary History of Skin or Integumenta: Yes Blood Transfusions History of Blood Disorders: No Adverse Reaction to a Blood Tr: No Reviewed Nursing Assessment Reviewed/Agree w Nursing PMH: Yes Family Medical History Significant Family History: No Pertinent Family Hx Physical Exam Vital Signs Vital Sign - Last 12Hours 01/13/17 16:36 Temp 98.2 Pulse 168 Resp 18 B/P (MAP) 142/87 Pulse Ox 94 Capillary Refill : Less Than 3 Seconds General Appearance: WD/WN, Other (weak appearing) HEENT: PERRL/EOMI, Pharynx Normal Neck: Non Tender, Supple Respiratory: Lungs Clear, Normal Breath Sounds Cardiovascular: No Murmur, Tachycardia Gastrointestinal: Soft, Tenderness (mild diffuse tenderness) Extremity: Normal Range of Motion, Non Tender Neurologic/Psychiatric: Alert, Oriented x3 Skin: Normal Color, Warm/Dry Progress/Results/Core Measures Results/Orders Lab Results Laboratory Tests Test 01/13/17 16:32 01/13/17 16:35 01/13/17 17:11 Range/Units Glucometer 110 70-110 MG/DL White Blood Count 9.9 4.3-11.0 10^3/uL Red Blood Count 4.72 4.35-5.85 10^6/uL Hemoglobin 14.3 11.5-16.0 G/DL Hematocrit 43 35-52 % Mean Corpuscular Volume 91 80-99 FL Mean Corpuscular Hemoglobin 30 25-34 PG Mean Corpuscular Hemoglobin Concent 33 32-36 G/DL Red Cell Distribution Width 12.7 10.0-14.5 % Platelet Count 241 130-400 10^3/uL Mean Platelet Volume 9.6 7.4-10.4 FL Neutrophils (%) (Auto) 83 H 42-75 % Lymphocytes (%) (Auto) 12 12-44 % Monocytes (%) (Auto) 5 0-12 % Eosinophils (%) (Auto) 0 0-10 % Basophils (%) (Auto) 0 0-10 % Neutrophils # (Auto) 8.2 H 1.8-7.8 X 10^3 Lymphocytes # (Auto) 1.2 1.0-4.0 X 10^3 Monocytes # (Auto) 0.5 0.0-1.0 X 10^3 Eosinophils # (Auto) 0.0 0.0-0.3 10^3/uL Basophils # (Auto) 0.0 0.0-0.1 10^3/uL Prothrombin Time 13.8 12.2-14.7 SEC INR Comment 1.1 0.8-1.4 Activated Partial Thromboplast Time 27 24-35 SEC Sodium Level 137 135-145 MMOL/L Potassium Level 3.3 L 3.6-5.0 MMOL/L Chloride Level 101 98-107 MMOL/L Carbon Dioxide Level 24 21-32 MMOL/L Anion Gap 12 5-14 MMOL/L Blood Urea Nitrogen 15 7-18 MG/DL Creatinine 1.04 0.60-1.30 MG/DL Estimat Glomerular Filtration Rate 55 BUN/Creatinine Ratio 14 Glucose Level 121 H 70-105 MG/DL Calcium Level 8.6 8.5-10.1 MG/DL Magnesium Level 1.5 L 1.8-2.4 MG/DL Total Bilirubin 0.6 0.1-1.0 MG/DL Aspartate Amino Transf (AST/SGOT) 19 5-34 U/L Alanine Aminotransferase (ALT/SGPT) 18 0-55 U/L Alkaline Phosphatase 31 L 40-136 U/L Troponin I < 0.30 <0.30 NG/ML Total Protein 7.3 6.4-8.2 GM/DL Albumin 3.6 3.2-4.5 GM/DL Thyroid Stimulating Hormone (TSH) 0.55 0.35-4.94 UIU/ML Urine Color YELLOW Urine Clarity VERY CLOUDY H Urine pH 6 5-9 Urine Specific [place] 1.020 1.016-1.022 Urine Protein 3+ H NEGATIVE Urine Glucose (UA) 1+ H NEGATIVE Urine Ketones 1+ H NEGATIVE Urine Nitrite NEGATIVE NEGATIVE Urine Bilirubin NEGATIVE NEGATIVE Urine Urobilinogen NORMAL NORMAL MG/DL Urine Leukocyte Esterase 3+ H NEGATIVE Urine RBC (Auto) 5+ H NEGATIVE Urine RBC 10-25 H /HPF Urine WBC 50-100 H /HPF Urine Squamous Epithelial Cells 2-5 /HPF Urine Crystals NONE /LPF Urine Bacteria FEW H /HPF Urine Casts NONE /LPF Urine Mucus NEGATIVE /LPF Urine Culture Indicated YES My Orders Orders - ORACIO MÁRQUEZ MD Saline Lock/Iv-Start (01/13/17 16:34) Ekg Tracing (01/13/17 16:34) Cbc With Automated Diff (01/13/17 16:34) Comprehensive Metabolic Panel (01/13/17 16:34) Magnesium (01/13/17 16:34) Troponin I (01/13/17 16:34) Fentanyl Injection (Sublimaze Injection (01/13/17 16:34) Ns Iv 1000 Ml (Sodium Chloride 0.9%) (01/13/17 16:38) Chest 1 View, Ap/Pa Only (01/13/17 16:38) Protime With Inr (01/13/17 16:39) Partial Thromboplastin Time (01/13/17 16:39) Thyroid Stimulating Hormone (01/13/17 16:39) Adenosine Injection (Adenocard Injection (01/13/17 16:39) Sodium Chloride (Add-[place]) (Ns (Add-V (01/13/17 16:46) Diltiazem Drip (Cardizem Drip) (01/13/17 16:46) Diltiazem Injection (Cardizem Injection) (01/13/17 16:47) Aspirin Chewable Tablet (Baby Aspirin Ch (01/13/17 16:53) Ekg Tracing (01/13/17 16:53) Apixaban Tablet (Eliquis Tablet) (01/13/17 17:00) Ondansetron Injection (Zofran Injectio (01/13/17 17:00) Ua Culture If Indicated (01/13/17 17:14) Stool Culture (01/13/17 17:14) Fecal Wbc (01/13/17 17:14) C Difficile Ag + Toxin A/B. (01/13/17 17:14) Diltiazem Injection (Cardizem Injection) (01/13/17 17:30) Urine Culture (01/13/17 17:11) Saline Lock/Iv-Start (01/13/17 17:37) Ns Iv 1000 Ml (Sodium Chloride 0.9%) (01/13/17 17:37) Magnesium 1 Gm/100 Ml Ivpb (Magnesium [place] (01/13/17 17:45) Medications Given in ED Current Medications Medications Dose Ordered Sig/Ngoc Route Start Time Stop Time Status Last Admin Dose Admin Adenosine 6 mg STK-MED ONCE IV 01/13/17 16:39 01/13/17 16:47 DC 01/13/17 16:50 6 MG Apixaban 5 mg ONCE ONCE PO 01/13/17 17:00 01/13/17 17:01 DC 01/13/17 17:12 5 MG Diltiazem HCl 10 mg ONCE ONCE IVP 01/13/17 17:30 01/13/17 17:31 DC 01/13/17 17:15 10 MG Diltiazem HCl 25 mg STK-MED ONCE .ROUTE 01/13/17 16:47 01/13/17 16:54 DC 01/13/17 16:57 10 MG Diltiazem HCl 100 mg STK-MED ONCE IV 01/13/17 16:46 01/13/17 16:53 DC 01/13/17 16:58 10 MG Magnesium Sulfate/ Dextrose 100 ml @ 100 mls/hr ONCE ONCE IV 01/13/17 17:45 01/13/17 18:44 01/13/17 18:06 100 MLS/HR Ondansetron HCl 4 mg ONCE ONCE IVP 01/13/17 17:00 01/13/17 17:01 DC 01/13/17 17:10 4 MG Sodium Chloride 100 ml @ ud STK-MED ONCE IV 01/13/17 16:46 01/13/17 16:53 DC 01/13/17 16:57 10 MLS/HR Sodium Chloride 1,000 ml @ 0 mls/hr Q0M ONCE IV 01/13/17 16:38 01/13/17 16:39 DC 01/13/17 16:43 0 MLS/HR Sodium Chloride 1,000 ml @ 0 mls/hr Q0M ONCE IV 01/13/17 17:37 01/13/17 17:39 DC 01/13/17 17:41 0 MLS/HR Vital Signs/I&O Vital Sign - Last 12Hours 01/13/17 01/13/17 16:36 16:58 Temp 98.2 Pulse 168 Resp 18 B/P (MAP) 142/87 135/91 Pulse Ox 94 Intake and Output 01/14/17 00:00 Intake Total 1000 ml Balance 1000 ml Blood Pressure Mean: 105 Progress Note : Progress Note Seen and evaluated. IV, labs, EKG, chest x-ray and ASA 324 mg by mouth given. Due to very high heart rate noted on EKG, does and 6 mg IV initiated. This did slow the heart rate and I did note atrial fibrillation/atrial flutter as underlying rhythm. Heart rate then returned back to 160s to 170s. Cardizem bolus and drip initiated. Cardizem 10 mg IV given and drip initiated at 10 mg per hour. Eliquis 5 mg by mouth given for recommendation of manager subway, Dr. Amado. This did not change her heart rate. Repeat bolus of Cardizem 10 mg IV and rate increased to 15 mg per hour. 1800: Cardizem has been increased to 20 mg per hour. Second liter of IV fluids initiated with second IV. Magnesium 1 g IV is running. UTI noted. Case discussed with Dr. DYER at 1806. He accepts patient for admission, inpatient status on-call for Dr. Lofton. Case discussed with Dr. Amado at 1816. He accepts patient in consult. We will replace magnesium and potassium overnight and recheck in the morning. All the findings concerns were discussed with the patient and family and they agree. Lactic acid in blood cultures are being drawn and Rocephin 1 g IV will be initiated. ECG Initial ECG Impression Date: Jan 13, 2017 Initial ECG Impression Time: 16:33 Initial ECG Rate: 168 Initial ECG Rhythm: A Fib/Flutter Comment Wide-complex tachycardia with normal axis. No evidence of ST elevation GA. No previous available for comparison. Interpreted by me. EKG : EKG Time: 16:46 Rate: 184 Rhythm: A Fib/Flutter Comment Atrial fibrillation with rapid ventricular rate. Normal axis. No evidence of ST elevation GA. Change from previous. This EKG represents time after adenosine was given. Interpreted by me. Diagnostic Imaging Diagonstic Imaging: Xray Plain Films/CT/US/NM/MRI: chest Comments NAME: LUIS PALACIO [facility] REC#: [id number] PT STATUS: REG ER : 1960 PHYSICIAN: ORACIO MÁRQUEZ MD ADMIT DATE: 01/13/17/ER Signed Date of Exam: 01/13/17 CHEST 1 VIEW, AP/PA ONLY INDICATION: 56-year-old female presents with shortness of breath. COMPARISON: None. FINDINGS: Single view of the chest shows normal heart, pulmonary vasculature, pleura and diaphragms with no focal opacities. Soft tissues and bony thorax are normal. IMPRESSION: No acute cardiopulmonary changes. Dictated by: Dictated on workstation # [id number] Dict: 01/13/179 Trans: 01/13/17 180 Interpreted by: DC BAPTISTE MD Electronically signed by: DC BAPTISTE MD 01/13/17 180 Departure Communication (Admissions) Time/Spoke to Admitting Phy: 18:06 Time/Spoke to Consulting Phy: 18:16 Impression Impression: Primary Impression: Atrial fibrillation with rapid ventricular response Additional Impressions: Urinary tract infection Qualified Codes: N30.00 - Acute cystitis without hematuria Diarrhea Qualified Codes: R19.7 - Diarrhea, unspecified Hypokalemia Hypomagnesemia Disposition: ADMITTED INPATIENT Condition: Stable Admissions Decision to Admit Reason: Admit from ER (General) Decision to Admit/Date: Jan 13, 2017 Time/Decision to Admit Time: 18:06 Departure-Patient Inst. Referrals: RIGO LOFTON MD (PCP/Family) Primary Care Physician ORACIO MÁRQUEZ MD Jan 13, 2017 17:13
[2017-01-13 17:20] LABS: BILIRUBIN,URINE NEGATIVE (NEGATIVE); KETONES,URINE 1+ (NEGATIVE); LEUKOCYTE ESTERASE ,URINE 3+ (NEGATIVE); NITRITE,URINE NEGATIVE (NEGATIVE); PH,URINE 6 (5-9); PROTEIN,URINE 3+ (NEGATIVE); UROBILINOGEN,URINE NORMAL (NORMAL)
[2017-01-13 17:21] LABS: THYROID STIMULATING HORMONE 0.55 UIU/ML (0.35-4.94); TROPONIN I < 0.30 NG/ML (<0.30)
[2017-01-13] MEDS ORDERED: DILTIAZEM 25 MG/5 ML INJ (CARDIZEM) VIAL IVP ONE (17:30)
[2017-01-13 17:36] LABS: WBC,URINE 50-100 /HPF
--- NOTE | 2017-01-13 17:44 | Diagnostic Imaging Report ---
INDICATION: 56-year-old female presents with shortness of breath. COMPARISON: None. FINDINGS: Single view of the chest shows normal heart, pulmonary vasculature, pleura and diaphragms with no focal opacities. Soft tissues and bony thorax are normal. IMPRESSION: No acute cardiopulmonary changes. Dictated by: Dictated on workstation # [id number]
[2017-01-13] MEDS ORDERED: MAGNESIUM 1 GM/100 ML IVPB 100 ML IV ONE (17:45)
[2017-01-13] MEDS ORDERED: cefTRIAXone INJECTION 1,000 MG in NS (IVPB) 50 ML IV ONE (18:15)
[2017-01-13 19:30] VITALS: BP 89/57
[2017-01-13] MEDS: POTASSIUM CL 10MEQ/50ML IVPB 50 ML IV SCH ×4 (19:44→22:59)
[2017-01-13 20:00] VITALS: BP 98/57
[2017-01-13] MEDS: NS IV 1000 ML 1,000 ML IV SCH (20:09)
[2017-01-13] MEDS: DILTIAZEM DRIP 100 MG in SODIUM CHLORIDE (ADD-VANTAGE) 100 ML IV SCH ×2 (20:11→22:04)
[2017-01-13] MEDS ORDERED: ACETAMINOPHEN 325 MG TABLET/CAPLET (TYLENOL) PO ONE ×2 (20:15→20:45)
[2017-01-13 21:00] VITALS: BP 112/64
[2017-01-13] MEDS: APIXABAN 5 MG (ELIQUIS) TABLET PO SCH (21:00)
[2017-01-13 22:00] VITALS: BP 103/62
[2017-01-13 23:00] VITALS: BP 100/61
[2017-01-14] VITALS (24 sets, daily range): BP systolic 101–130; BP diastolic 54–99
[2017-01-14] MEDS: NS IV 1000 ML 1,000 ML IV SCH ×4 (04:17→21:39)
[2017-01-14] MEDS: DILTIAZEM DRIP 100 MG in SODIUM CHLORIDE (ADD-VANTAGE) 100 ML IV SCH (04:27)
[2017-01-14 04:47] LABS: BASOPHILS % (AUTO) 0 % (0-10); EOSINOPHILS % (AUTO) 0 % (0-10); LYMPHOCYTES # (AUTO) 0.7 X 10^3 (1.0-4.0); LYMPHOCYTES % (AUTO) 16 % (12-44); MEAN CORPUSCULAR HEMOGLOBIN 31 PG (25-34); MEAN CORPUSCULAR HGB CONC 33 G/DL (32-36); MEAN CORPUSCULAR VOLUME 94 FL (80-99); MEAN PLATELET VOLUME 9.8 FL (7.4-10.4); MONOCYTES # (AUTO) 0.3 X 10^3 (0.0-1.0); MONOCYTES % (AUTO) 7 % (0-12); NEUTROPHILS # (AUTO) 3.6 X 10^3 (1.8-7.8); NEUTROPHILS % (AUTO) 77 % (42-75); PLATELET COUNT 162 10^3/uL (130-400); RED BLOOD COUNT 4.42 10^6/uL (4.35-5.85); RED CELL DISTRIBUTION WIDTH 13.1 % (10.0-14.5); WHITE BLOOD COUNT 4.7 10^3/uL (4.3-11.0)
[2017-01-14] MEDS: ACETAMINOPHEN 325 MG TABLET/CAPLET (TYLENOL) PO PRN ×3 (05:02→19:39)
[2017-01-14] MEDS: PANTOPRAZOLE 40 MG (PROTONIX) TAB PO SCH ×2 (05:02→20:34)
[2017-01-14 05:06] LABS: MAGNESIUM 1.9 MG/DL (1.8-2.4); PHOSPHORUS 2.7 MG/DL (2.3-4.7)
[2017-01-14 05:22] LABS: ALANINE AMINOTRANSFERASE 18 U/L (0-55); ALBUMIN 3.3 GM/DL (3.2-4.5); ANION GAP 13 MMOL/L (5-14); ASPARTATE AMINO TRANSFERASE 17 U/L (5-34); BILIRUBIN,TOTAL 0.5 MG/DL (0.1-1.0); BLOOD UREA NITROGEN 13 MG/DL (7-18); BUN/CREATININE RATIO 17; CALCIUM 8.3 MG/DL (8.5-10.1); CARBON DIOXIDE 18 MMOL/L (21-32); CHLORIDE 108 MMOL/L (98-107); CREATININE SERUM 0.76 MG/DL (0.60-1.30); GFR ESTIMATED > 60; GLUCOSE 113 MG/DL (70-105); POTASSIUM 3.3 MMOL/L (3.6-5.0); SODIUM 139 MMOL/L (135-145); TOTAL PROTEIN 6.7 GM/DL (6.4-8.2)
[2017-01-14] MEDS: KCL 20 MEQ TAB (K-DUR) PO SCH (06:00)
[2017-01-14] MEDS: POTASSIUM CL 10MEQ/50ML IVPB 50 ML IV SCH (06:00)
[2017-01-14] MEDS: MAGNESIUM 1 GM/100 ML IVPB 100 ML IV SCH ×3 (06:00→13:51)
[2017-01-14] MEDS ORDERED: KCL 20 MEQ POWDER FOR ORAL SOLUTION ONE (06:04)
[2017-01-14] MEDS ORDERED: KCL 20 MEQ POWDER FOR ORAL SOLUTION PO ONE (06:15)
--- NOTE | 2017-01-14 09:38 | Diagnostic Imaging Report ---
Portable chest compared to prior study from January 13, 2017. INDICATION: Cough, congestion. FINDINGS: Lungs demonstrate no evidence of focal pulmonary infiltrate or consolidation. There is no evidence of effusion or pneumothorax. Heart size and mediastinal contours appear appropriate. Pulmonary vascularity appears within normal limits. IMPRESSION: No radiographic evidence of an acute cardio pulmonary process. Dictated by: Dictated on workstation # [id number]
[2017-01-14] MEDS: APIXABAN 5 MG (ELIQUIS) TABLET PO SCH ×2 (09:42→20:34)
[2017-01-14 10:34] LABS: ANION GAP 8 MMOL/L (5-14); BLOOD UREA NITROGEN 11 MG/DL (7-18); BUN/CREATININE RATIO 16; CALCIUM 7.9 MG/DL (8.5-10.1); CARBON DIOXIDE 21 MMOL/L (21-32); CHLORIDE 109 MMOL/L (98-107); GFR ESTIMATED > 60; GLUCOSE 115 MG/DL (70-105); MAGNESIUM 1.6 MG/DL (1.8-2.4); POTASSIUM 3.7 MMOL/L (3.6-5.0); SODIUM 138 MMOL/L (135-145)
[2017-01-14] MEDS ORDERED: PANT20TA3 PO (10:58)
[2017-01-14] MEDS ORDERED: FLUO40CA PO (10:58)
--- NOTE | 2017-01-14 13:06 | Consultation-Cardiology ---
HPI-Cardiology Cardiology Consultation: Date of Consultation 01/14/17 Time Seen by Provider: 12:35 Date of Admission 01/13/17 Attending Physician Stephany Kuhn MD Admitting Physician Stephany Kuhn MD Consulting Physician ALEXANDRO BOURNE MD, MA, FACP, FACC, FSCAI, CCDS HPI: Chief Complaint: Reason for consultation: PAF with RVR HPI: 56 yo woman who has had URI-like symptoms (including cough and a feeling of bronchial congestion) a week and onset of nausea and diarrhea two days ago. She was admitted to her pcp's service on 01/13/17 with abdominal cramping and diarrhea and was also found to have PAF with RVR in the setting of elec abn. Elec were corrected and she was treated with OAC and iv dilt and has converted to NSR. She continues to have gen malaise and diarrhea and abd cramping. Does not report shortness of breath. Did have some feeling of palp and vague chest discomfort at presentation that is not present any longer. Does not report syncope or ankle swelling or fever/chills Review of Systems-Cardiology Review of Systems Constitutional: malaise, tiredness, No weight loss, No weight gain Eyes: No vision change Ears/Nose/Throat: No ear discharge, No nasal drainage, No recent hearing loss Respiratory: As described under HPI Cardiovascular: As described under HPI Gastrointestinal: As described under HPI Genitourinary: No dysuria, No hematuria Musculoskeletal: other (gen discomfor, desiree abd discomfort) Skin: No rash, No ulcerations Psychiatric/Neurological: No seizure, No focal weakness, No syncope Hematologic: No bleeding abnormalities All Other Systems Reviewed Negative Unless Noted: Yes HNX-Srrkui-Kitfsh Hx Patient Social History Alcohol Use: Denies Use Recreational Drug Use: No Smoking Status: Never a Smoker Recent Foreign Travel: No Recent Infectious Disease Expo: No Hospitalization with Isolation: Denies Physical Abuse Screen: No Sexual Abuse: No Immunizations Up To Date Tetanus Booster (TDap): Unknown Date of Pneumonia Vaccine: Nov 02, 2009 Date of Influenza Vaccine: Jan 31, 2016 Past Medical History PMH As described under Assessment. Family Medical History Family History: Colon cancer 19 MOTHER (not sure where primary cancer was located) Diabetes mellitus G8 BROTHER Not obtainable due to adoption 19 FATHER Psychosocial problem G8 SISTER (setziaphrenia) Respiratory disorder G8 SISTER (sleep apnea) Thyroid disease G8 SISTER (goiters) Tuberculosis Allergies and Home Medications Allergies Coded Allergies: codeine (Unverified Allergy, Mild, 08/02/09) Home Medications Alprazolam 0.25 Mg Tab, 0.25 MG PO HS, (Reported) Cholecalciferol (Vitamin D3) 2,000 Unit Tablet, 2,000 UNIT PO DAILY, (Reported) Fluoxetine HCl 40 Mg Capsule, 40 MG PO DAILY, (Reported) Levothyroxine Sodium 25 Mcg Tablet, 25 MCG PO DAILY, (Reported) Multivitamin 1 Each Tablet, 1 EACH PO DAILY, (Reported) [place]-3 Fatty Acids/Fish Oil 1 Each Capsule.dr, 1 TAB PO DAILY, (Reported) Pantoprazole Sodium 20 Mg Tablet.dr, 40 MG PO BID, (Reported) Physical Exam-Cardiology Physical Exam Vital Signs/I&O Vital Sign - Last 12Hours 01/14/17 01/14/17 01/14/17 01/14/17 02:00 03:00 04:00 04:00 Temp 99.5 Pulse 73 80 Resp 10 21 B/P (MAP) 115/64 120/70 Pulse Ox 97 94 95 O2 Delivery Nasal Cannula Nasal Cannula Nasal Cannula O2 Flow Rate 2.00 2.00 2.00 01/14/17 01/14/17 01/14/17 01/14/17 04:00 04:27 05:00 06:00 Pulse 77 79 91 72 Resp 11 23 18 B/P (MAP) 125/68 120/69 106/54 Pulse Ox 96 97 95 O2 Delivery Nasal Cannula Nasal Cannula Nasal Cannula O2 Flow Rate 2.00 2.00 2.00 01/14/17 01/14/17 01/14/17 01/14/17 07:00 08:45 08:45 08:47 Temp 99.1 Pulse 72 B/P (MAP) Pulse Ox 95 O2 Delivery Nasal Cannula Nasal Cannula Nasal Cannula O2 Flow Rate 2.00 2.00 2.00 Capillary Refill : Less Than 3 Seconds Constitutional: AAO x 3, well-developed, well-nourished HEENT: PERRL, EOMI, hearing is well preserved, No xanthelasmas are seen Neck: carotid pulses are 2 + bilaterally, with good upstrokes Respiratory: No accessory muscle use, other (good bilateral air entry) Cardiovascular: regular rate-rhythm, S1 and S2, systolic murmur (faint TAMAR at cardiac base) Gastrointestinal: tender (mild), soft, No guarding, No rebound, audible bowel sounds Extremities: No clubbing, No cyanosis, No significant edema Neurologic/Psychiatric: grossly intact, power is 5/5 both on sides Skin: No rash on exposed areas, No ulcerations on exposed areas Data Review Labs Laboratory Tests 01/13/17 16:32: Glucometer 110 01/13/17 16:35: White Blood Count 9.9, Red Blood Count 4.72, Hemoglobin 14.3, Hematocrit 43, Mean Corpuscular Volume 91, Mean Corpuscular Hemoglobin 30, Mean Corpuscular Hemoglobin Concent 33, Red Cell Distribution Width 12.7, Platelet Count 241, Mean Platelet Volume 9.6, Neutrophils (%) (Auto) 83H, Lymphocytes (%) (Auto) 12 , Monocytes (%) (Auto) 5, Eosinophils (%) (Auto) 0, Basophils (%) (Auto) 0, Neutrophils # (Auto) 8.2H, Lymphocytes # (Auto) 1.2, Monocytes # (Auto) 0.5, Eosinophils # (Auto) 0.0, Basophils # (Auto) 0.0, Prothrombin Time 13.8, INR Comment 1.1, Activated Partial Thromboplast Time 27, Sodium Level 137, Potassium Level 3.3L, Chloride Level 101, Carbon Dioxide Level 24, Anion Gap 12 , Blood Urea Nitrogen 15, Creatinine 1.04, Estimat Glomerular Filtration Rate 55 , BUN/Creatinine Ratio 14, Glucose Level 121H, Calcium Level 8.6, Magnesium Level 1.5L, Total Bilirubin 0.6, Aspartate Amino Transf (AST/SGOT) 19, Alanine Aminotransferase (ALT/SGPT) 18, Alkaline Phosphatase 31L, Troponin I < 0.30, Total Protein 7.3, Albumin 3.6, Thyroid Stimulating Hormone (TSH) 0.55 01/13/17 17:11: Urine Color YELLOW, Urine Clarity VERY CLOUDYH, Urine pH 6, Urine Specific [place] 1.020, Urine Protein 3+H, Urine Glucose (UA) 1+H, Urine Ketones 1+H, Urine Nitrite NEGATIVE, Urine Bilirubin NEGATIVE, Urine Urobilinogen NORMAL, Urine Leukocyte Esterase 3+H, Urine RBC (Auto) 5+H, Urine RBC 10-25H, Urine WBC 50-100H, Urine Squamous Epithelial Cells 2-5, Urine Crystals NONE, Urine Bacteria FEWH, Urine Casts NONE, Urine Mucus NEGATIVE, Urine Culture Indicated YES 01/13/17 18:27: Lactic Acid Level 1.03 01/14/17 04:30: White Blood Count 4.7, Red Blood Count 4.42, Hemoglobin 13.5, Hematocrit 42, Mean Corpuscular Volume 94, Mean Corpuscular Hemoglobin 31, Mean Corpuscular Hemoglobin Concent 33, Red Cell Distribution Width 13.1, Platelet Count 162, Mean Platelet Volume 9.8, Neutrophils (%) (Auto) 77H, Lymphocytes (%) (Auto) 16 , Monocytes (%) (Auto) 7, Eosinophils (%) (Auto) 0, Basophils (%) (Auto) 0, Neutrophils # (Auto) 3.6, Lymphocytes # (Auto) 0.7L, Monocytes # (Auto) 0.3, Eosinophils # (Auto) 0.0, Basophils # (Auto) 0.0, Sodium Level 139, Potassium Level 3.3L, Chloride Level 108H, Carbon Dioxide Level 18L, Anion Gap 13, Blood Urea Nitrogen 13, Creatinine 0.76, Estimat Glomerular Filtration Rate > 60, BUN/ Creatinine Ratio 17, Glucose Level 113H, Calcium Level 8.3L, Phosphorus Level 2.7, Magnesium Level 1.9, Total Bilirubin 0.5, Aspartate Amino Transf (AST/SGOT ) 17, Alanine Aminotransferase (ALT/SGPT) 18, Alkaline Phosphatase 28L, Total Protein 6.7, Albumin 3.3 01/14/17 10:11: Sodium Level 138, Potassium Level 3.7, Chloride Level 109H, Carbon Dioxide Level 21, Anion Gap 8, Blood Urea Nitrogen 11, Creatinine 0.70, Estimat Glomerular Filtration Rate > 60, BUN/Creatinine Ratio 16, Glucose Level 115H, Calcium Level 7.9L, Magnesium Level 1.6L Microbiology 01/13/17 Fecal Leukocyte Stain - Final, Resulted 01/13/17 C. difficile GDH Antigen & Toxins - Final, Resulted 01/13/17 Stool Culture - Preliminary, Resulted 01/13/17 Urine Culture - Preliminary, Resulted Gram Negative Jimmy Gram Negative Jimmy#2 Probable Enterococcus Species Laboratory Tests 01/13/17 16:35 01/14/17 04:30 01/14/17 10:11 A/P-Cardiology Assessment/Admission Diagnosis PAF with RVR, probably precipitated by elec imbalance due to diarrhea due to ac GI illness Ac GI illness, being managed by the Med S[facility] Obesity-hypoventilation and obstructive sleep apnea syndrome, treated by Dr Lagos H/o laparoscopic cholecystectomy in 2016 Discussion and Recomendations * Maintain electrolyte homeostasis * iv fluids * Echo to eval LV and cardiac valve function * Apixaban for stroke prophylaxis * Long-acting dilt to control heart rate * Monitor labs Clinical Quality Measures AMI/AHF: ASA po Prior to arrival: No DVT/VTE Risk/Contraindication: Risk Factor Score Per Nursin RFS Level Per Nursing on Admit: 2=Moderate ALEXANDRO BOURNE MD FACP FAC CCDS Jan 14, 2017 13:06
[2017-01-14] MEDS ORDERED: CETI10TA17 PO (13:08)
[2017-01-14] MEDS ORDERED: RT-ALBUINH IH (13:08)
[2017-01-14] MEDS ORDERED: CHOL20003 PO (13:08)
[2017-01-14] MEDS ORDERED: MONT10TA24 PO (13:08)
[2017-01-14] MEDS ORDERED: OMEG-109 PO (13:08)
[2017-01-14] MEDS ORDERED: NAPR500T3 PO (13:08)
[2017-01-14] MEDS ORDERED: ALPR0.254 PO (13:08)
[2017-01-14] MEDS ORDERED: OXYB10TA PO (13:08)
[2017-01-14] MEDS ORDERED: PRD10T PO (13:08)
[2017-01-14] MEDS ORDERED: AMOX1TAB12 PO (13:08)
[2017-01-14] MEDS ORDERED: SIMETHICONE 80 MG (MYLICON) CHEW PO NR (13:19)
[2017-01-14] MEDS ORDERED: DILTIAZEM 240 MG (CARDIZEM CD) CAP PO NR (13:38)
[2017-01-14] MEDS ORDERED: KCL 20 MEQ POWDER FOR ORAL SOLUTION PO NR (13:39)
--- NOTE | 2017-01-14 15:03 | History & Physical-Hospitalist ---
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 She reports that early last week she developed a cough which became productive of some yellow-green sputum. She was not aware of fever or chills. She saw her PCP on Sunday and was given Augmentin. By she had developed diarrhea. She came to work and had an incontinent stool and went back home. This continued and she then developed the sensation of palpitations. She reports there is no previous history of asthma or chronic bronchitis. She is a life long nonsmoker. She continues to cough at this time and also has tenesmus and diarrhea. On examination in the emergency room she was found to have a temperature of 101.9 and a pulse at 168 at presentation her SaO2 was 94 percent or greater on O2 at 2 L her mean arterial pressure was 80. After aggressive hydration her pulse dropped to 94. Her white blood count was 9900 her presentation and fell to 4700 today. Initial potassium was 3.3 and with supplementation is 3.7 at this time. Lactic acid was 1.03. Stool for C. difficile was negative. UA shows 3 pathogens 2 g negatives and the third a probable enterococcus. She was placed on Rocephin empirically pending culture and sensitivity. Cardizem was used for the atrial fibrillation. Source: patient Exam Limitations: no limitations Date Seen 01/14/17 Time Seen by Provider: 14:58 Attending Physician Stephany Kuhn MD PCP Stephany Kuhn MD Referring Physician Date of Admission Jan 13, 2017 at 18:10 Home Medications & Allergies Home Medications Reviewed patient Home Medication Reconciliation Form Allergies Allergies Coded Allergies codeine (Unverified Allergy, Mild, 08/02/09) Past Lsfflrx-Skdvtr-Ilnmaf Hx Patient Social History Alcohol Use: Denies Use Recreational Drug Use: No Smoking Status: Never a Smoker Physical Abuse Screen: No Sexual Abuse: No Recent Foreign Travel: No Contact w/other who traveled: No Recent Hopitalizations: No Recent Infectious Disease Expo: No Immunizations Up To Date Tetanus Booster (TDap): Unknown Date of Pneumonia Vaccine: Nov 02, 2009 Date of Influenza Vaccine: Jan 31, 2016 Seasonal Allergies Seasonal Allergies: No Surgeries Yes (appy) Appendectomy, Hysterectomy Respiratory Yes Currently Using CPAP: Yes Cardiovascular Yes Neurological No Reproductive System : No Hx Reproductive Disorders: No Sexually Transmitted Disease: No HIV/AIDS: No SPRAYER 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 History: Hysterectomy Genitourinary No Gastrointestinal Yes Gastroesophageal Reflux, Chronic Diarrhea Musculoskeletal Yes (OSTEO ARTHRITIS) Arthritis, Chronic Back Pain Endocrine History of Endocrine Disorders: No Endocrine Disorders: Hypothyroidsim HEENT Loss of Vision: Bilateral Hearing Impairment: Denies Cancer Yes Lymphoma, Uterine Did You Recieve Any Treatments: Yes Type of Treatment: Chemotherapy Psychosocial History of 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 Problem: Yes (STRESS) Behavioral Health Disorders: Anxiety Integumentary History of Skin or Integumenta: Yes (occasionally has red spots appear) Blood Transfusions History of Blood Disorders: No Adverse Reaction to a Blood Tr: No Reviewed Nursing Assessment Reviewed/Agree w Nursing PMH: Yes Family Medical History Significant Family History: No Pertinent Family Hx Family Hx: Colon cancer 19 MOTHER (not sure where primary cancer was located) Diabetes mellitus G8 BROTHER Not obtainable due to adoption 19 FATHER Psychosocial problem G8 SISTER (setziaphrenia) Respiratory disorder G8 SISTER (sleep apnea) Thyroid disease G8 SISTER (goiters) Tuberculosis Review of Systems Constitutional: see HPI, weakness EENTM: no symptoms reported Respiratory: cough, phlegm Cardiovascular: palpitations Gastrointestinal: loss of appetite, nausea, vomiting, other (tenesmus) Genitourinary: decreased output Musculoskeletal: no symptoms reported Skin: no symptoms reported Psychiatric/Neurological: No Symptoms Reported Physical Exam Physical Exam Vital Signs Vital Sign - Last 12Hours 01/13/17 01/13/17 16:36 18:46 Temp 98.2 Pulse 168 Resp 18 B/P (MAP) 142/87 Pulse Ox 94 O2 Delivery Nasal Cannula O2 Flow Rate 2.00 Capillary Refill : Less Than 3 Seconds General Appearance: Other (acutely ill appearing white female) Eyes: Bilateral Eye Normal Inspection HEENT: Normal ENT Inspection Neck: Normal Inspection Respiratory: Chest Non Tender, Lungs Clear, Normal Breath Sounds, No Accessory Muscle Use, No Respiratory Distress, Other (dry cough) Cardiovascular: Regular Rate, Rhythm, No Edema, No Gallop, No JVD, No Murmur, Normal Peripheral Pulses Gastrointestinal: Abnormal Bowel Sounds (decreased) Extremity: Normal Capillary Refill, Normal Inspection, Normal Range of Motion, Non Tender, No Calf Tenderness, No Pedal Edema Neurologic/Psychiatric: Alert, Oriented x3, No Motor/Sensory Deficits, Normal Mood/Affect Skin: Normal Color, Warm/Dry Lymphatic: No Adenopathy Results Results/Procedures Lab Laboratory Tests 01/13/17 16:35 01/14/17 04:30 01/14/17 10:11 Assessment/Plan Admission Diagnosis 1.fulminant diarrhea probably antibiotic induced. 2.bronchitis as initial symptom. 3.atrial fibrillation with rapid ventricular response Assessment and Plan Fluid replacement. Magnesium replacement. Cardiology consultation. Add Questran. Repeat C. difficile assay tomorrow if necessary. Clinical Quality Measures AMI/AHF: ASA po Prior to arrival: No DVT/VTE Risk/Contraindication: Risk Factor Score Per Nursin RFS Level Per Nursing on Admit: 2=Moderate ARSEN DYER MD Jan 14, 2017 15:03
[2017-01-14] MEDS: CHOLESTYRAMINE 4 GM (QUESTRAN LITE, PREVALITE) PKT PO SCH ×2 (16:20→21:39)
[2017-01-14] MEDS ORDERED: cefTRIAXone INJECTION 1,000 MG in NS (IVPB) 50 ML IV SCH (18:00)
[2017-01-14] MEDS ORDERED: CHOLESTYRAMINE 4 GM (QUESTRAN LITE, PREVALITE) PKT PO SCH ×2 (21:00)
[2017-01-15] VITALS (16 sets, daily range): BP systolic 115–152; BP diastolic 58–87
[2017-01-15] MEDS: ACETAMINOPHEN 325 MG TABLET/CAPLET (TYLENOL) PO PRN ×3 (00:40→13:09)
[2017-01-15 04:53] LABS: BASOPHILS % (AUTO) 1 % (0-10); EOSINOPHILS # (AUTO) 0.2 10^3/uL (0.0-0.3); EOSINOPHILS % (AUTO) 4 % (0-10); LYMPHOCYTES # (AUTO) 0.9 X 10^3 (1.0-4.0); LYMPHOCYTES % (AUTO) 20 % (12-44); MEAN CORPUSCULAR HEMOGLOBIN 31 PG (25-34); MEAN CORPUSCULAR HGB CONC 33 G/DL (32-36); MEAN CORPUSCULAR VOLUME 95 FL (80-99); MEAN PLATELET VOLUME 10.1 FL (7.4-10.4); MONOCYTES # (AUTO) 0.3 X 10^3 (0.0-1.0); MONOCYTES % (AUTO) 6 % (0-12); NEUTROPHILS # (AUTO) 3.1 X 10^3 (1.8-7.8); NEUTROPHILS % (AUTO) 70 % (42-75); PLATELET COUNT 144 10^3/uL (130-400); RED BLOOD COUNT 3.59 10^6/uL (4.35-5.85); RED CELL DISTRIBUTION WIDTH 12.8 % (10.0-14.5); WHITE BLOOD COUNT 4.5 10^3/uL (4.3-11.0)
[2017-01-15] MEDS: NS IV 1000 ML 1,000 ML IV SCH ×2 (05:11→16:04)
[2017-01-15 05:16] LABS: ALANINE AMINOTRANSFERASE 18 U/L (0-55); ANION GAP 9 MMOL/L (5-14); ASPARTATE AMINO TRANSFERASE 20 U/L (5-34); BILIRUBIN,TOTAL 0.4 MG/DL (0.1-1.0); BLOOD UREA NITROGEN 5 MG/DL (7-18); BUN/CREATININE RATIO 7; CALCIUM 8.2 MG/DL (8.5-10.1); CARBON DIOXIDE 19 MMOL/L (21-32); CHLORIDE 108 MMOL/L (98-107); CREATININE SERUM 0.68 MG/DL (0.60-1.30); GFR ESTIMATED > 60; GLUCOSE 91 MG/DL (70-105); MAGNESIUM 2.1 MG/DL (1.8-2.4); PHOSPHORUS 2.1 MG/DL (2.3-4.7); POTASSIUM 3.8 MMOL/L (3.6-5.0); SODIUM 136 MMOL/L (135-145); TOTAL PROTEIN 6.1 GM/DL (6.4-8.2)
[2017-01-15] MEDS: KCL 20 MEQ TAB (K-DUR) PO SCH (05:23)
[2017-01-15] MEDS: POTASSIUM CL 10MEQ/50ML IVPB 50 ML IV SCH (05:23)
[2017-01-15] MEDS: MAGNESIUM 1 GM/100 ML IVPB 100 ML IV SCH (05:23)
--- NOTE | 2017-01-15 07:50 | Progress Note (SOAP) ---
Subjective Date Seen by Provider: Jan 15, 2017 Time Seen by Provider: 08:30 Subjective/Events-last exam see discharge summary Review of Systems General: Fatigue Objective Exam Vital Signs Date Time Temp Pulse Resp B/P (MAP) Pulse Ox O2 Delivery O2 Flow Rate FiO2 01/15/17 06:00 97 152/78 94 Nasal Cannula 2.00 01/15/17 05:00 99 142/69 95 Nasal Cannula 2.00 01/15/17 04:00 99.5 99 133/75 96 Nasal Cannula 2.00 01/15/17 04:00 96 Nasal Cannula 2.00 01/15/17 03:00 90 115/69 96 Nasal Cannula 2.00 01/15/17 02:00 91 139/79 95 Nasal Cannula 2.00 01/15/17 01:00 97 01/15/17 01:00 87 129/74 99 Nasal Cannula 2.00 01/15/17 00:00 98.9 85 131/77 97 Nasal Cannula 2.00 01/14/17 23:05 97 Nasal Cannula 2.00 01/14/17 23:00 84 116/63 98 Nasal Cannula 2.00 01/14/17 22:00 77 130/83 98 Nasal Cannula 2.00 01/14/17 21:00 81 129/69 98 Nasal Cannula 2.00 01/14/17 20:00 73 101/92 98 Nasal Cannula 2.00 01/14/17 20:00 100 Nasal Cannula 2.00 01/14/17 19:00 98.9 77 20 130/73 100 Nasal Cannula 2.00 01/14/17 19:00 79 01/14/17 18:00 80 16 119/67 91 Room Air 01/14/17 17:00 75 18 120/65 96 Nasal Cannula 2.00 01/14/17 16:20 95 Nasal Cannula 2.00 01/14/17 16:00 98.2 01/14/17 16:00 74 18 113/68 96 Nasal Cannula 2.00 01/14/17 15:00 73 18 119/62 97 Nasal Cannula 2.00 01/14/17 14:00 75 18 123/99 95 Nasal Cannula 2.00 01/14/17 13:00 73 18 109/54 96 Nasal Cannula 2.00 01/14/17 13:00 70 01/14/17 12:32 95 Nasal Cannula 2.00 01/14/17 12:00 74 18 116/65 96 Nasal Cannula 2.00 01/14/17 11:00 73 19 116/65 96 Nasal Cannula 2.00 01/14/17 10:00 81 18 118/65 96 Nasal Cannula 2.00 01/14/17 09:00 76 18 128/78 98 Nasal Cannula 2.00 01/14/17 08:47 Nasal Cannula 2.00 01/14/17 08:45 95 Nasal Cannula 2.00 01/14/17 08:45 99.1 Nasal Cannula 2.00 01/14/17 08:00 79 11 118/69 96 Nasal Cannula 2.00 Capillary Refill : Less Than 3 Seconds General Appearance: WD/WN Results Lab Laboratory Tests 01/14/17 10:11: Sodium Level 138, Potassium Level 3.7, Chloride Level 109H, Carbon Dioxide Level 21, Anion Gap 8, Blood Urea Nitrogen 11, Creatinine 0.70, Estimat Glomerular Filtration Rate > 60, BUN/Creatinine Ratio 16, Glucose Level 115H, Calcium Level 7.9L, Magnesium Level 1.6L 01/15/17 04:30: Sodium Level 136, Potassium Level 3.8, Chloride Level 108H, Carbon Dioxide Level 19L, Anion Gap 9, Blood Urea Nitrogen 5L, Creatinine 0.68, Estimat Glomerular Filtration Rate > 60, BUN/Creatinine Ratio 7, Glucose Level 91, Calcium Level 8.2L, Magnesium Level 2.1, White Blood Count 4.5, Red Blood Count 3.59L, Hemoglobin 11.1L, Hematocrit 34L, Mean Corpuscular Volume 95, Mean Corpuscular Hemoglobin 31, Mean Corpuscular Hemoglobin Concent 33, Red Cell Distribution Width 12.8, Platelet Count 144, Mean Platelet Volume 10.1, Neutrophils (%) (Auto) 70, Lymphocytes (%) (Auto) 20, Monocytes (%) (Auto) 6, Eosinophils (%) (Auto) 4, Basophils (%) (Auto) 1, Neutrophils # (Auto) 3.1, Lymphocytes # (Auto) 0.9L, Monocytes # (Auto) 0.3, Eosinophils # (Auto) 0.2, Basophils # (Auto) 0.0, Phosphorus Level 2.1L, Total Bilirubin 0.4, Aspartate Amino Transf (AST/SGOT) 20, Alanine Aminotransferase (ALT/SGPT) 18, Alkaline Phosphatase 25L, Total Protein 6.1L, Albumin 3.0L Microbiology 01/13/17 Blood Culture - Preliminary, Resulted No growth 01/13/17 Fecal Leukocyte Stain - Final, Resulted 01/13/17 C. difficile GDH Antigen & Toxins - Final, Resulted 01/13/17 Stool Culture - Preliminary, Resulted 01/13/17 Urine Culture - Preliminary, Resulted Klebsiella Pneumoniae Gram Negative Jimmy#2 Enterococcus Faecalis Assessment/Plan Assessment/Plan Assess & Plan/Chief Complaint see discharge summary Clinical Quality Measures AMI/AHF: ASA po Prior to arrival: No DVT/VTE Risk/Contraindication: Risk Factor Score Per Nursin RFS Level Per Nursing on Admit: 2=Moderate RIGO LOFTON MD Jan 15, 2017 07:50
[2017-01-15] MEDS: APIXABAN 5 MG (ELIQUIS) TABLET PO SCH (08:14)
--- NOTE | 2017-01-15 08:22 | Progress Note-Cardiology ---
Cardiology SOAP Progress Note Subjective: In bed, she states overall she is feeling much better. No c/o CP. She does report some dyspnea with exertion. No c/o palpitations, syncope or near syncope. Objective: I&O/Vital Signs Vital Sign - Last 12Hours 01/14/17 01/14/17 01/14/17 01/15/17 22:00 23:00 23:05 00:00 Temp 98.9 Pulse 77 84 85 B/P (MAP) 130/83 116/63 131/77 Pulse Ox 98 98 97 97 O2 Delivery Nasal Cannula Nasal Cannula Nasal Cannula Nasal Cannula O2 Flow Rate 2.00 2.00 2.00 2.00 01/15/17 01/15/17 01/15/17 01/15/17 01:00 01:00 02:00 03:00 Pulse 87 97 91 90 B/P (MAP) 129/74 139/79 115/69 Pulse Ox 99 95 96 O2 Delivery Nasal Cannula Nasal Cannula Nasal Cannula O2 Flow Rate 2.00 2.00 2.00 01/15/17 01/15/17 01/15/17 01/15/17 04:00 04:00 05:00 06:00 Temp 99.5 Pulse 99 99 97 B/P (MAP) 133/75 142/69 152/78 Pulse Ox 96 96 95 94 O2 Delivery Nasal Cannula Nasal Cannula Nasal Cannula Nasal Cannula O2 Flow Rate 2.00 2.00 2.00 2.00 01/15/17 01/15/17 01/15/17 07:00 08:10 08:10 Temp 98.4 Pulse 97 92 Resp 16 B/P (MAP) 141/85 Pulse Ox 97 97 O2 Delivery Nasal Cannula Nasal Cannula O2 Flow Rate 2.00 2.00 Weight (Pounds): 292 Weight (Ounces): 5.0 Weight (Calculated Kilograms): 132.554679 Constitutional: AAO x 3, well-developed, well-nourished Respiratory: No accessory muscle use, other (diminished bases bilat with loose cough) Cardiovascular: regular rate-rhythm, S1 and S2, systolic murmur (faint TAMAR at cardiac base) Gastrointestional: tender (mild), soft, No guarding, No rebound, audible bowel sounds Extremities: No clubbing, No cyanosis, No significant edema Neurologic/Psychiatric: grossly intact, power is 5/5 both on sides Skin: No rash on exposed areas, No ulcerations on exposed areas Results/Procedures: Labs Laboratory Tests 01/14/17 10:11: Sodium Level 138, Potassium Level 3.7, Chloride Level 109H, Carbon Dioxide Level 21, Anion Gap 8, Blood Urea Nitrogen 11, Creatinine 0.70, Estimat Glomerular Filtration Rate > 60, BUN/Creatinine Ratio 16, Glucose Level 115H, Calcium Level 7.9L, Magnesium Level 1.6L 01/15/17 04:30: Sodium Level 136, Potassium Level 3.8, Chloride Level 108H, Carbon Dioxide Level 19L, Anion Gap 9, Blood Urea Nitrogen 5L, Creatinine 0.68, Estimat Glomerular Filtration Rate > 60, BUN/Creatinine Ratio 7, Glucose Level 91, Calcium Level 8.2L, Magnesium Level 2.1, White Blood Count 4.5, Red Blood Count 3.59L, Hemoglobin 11.1L, Hematocrit 34L, Mean Corpuscular Volume 95, Mean Corpuscular Hemoglobin 31, Mean Corpuscular Hemoglobin Concent 33, Red Cell Distribution Width 12.8, Platelet Count 144, Mean Platelet Volume 10.1, Neutrophils (%) (Auto) 70, Lymphocytes (%) (Auto) 20, Monocytes (%) (Auto) 6, Eosinophils (%) (Auto) 4, Basophils (%) (Auto) 1, Neutrophils # (Auto) 3.1, Lymphocytes # (Auto) 0.9L, Monocytes # (Auto) 0.3, Eosinophils # (Auto) 0.2, Basophils # (Auto) 0.0, Phosphorus Level 2.1L, Total Bilirubin 0.4, Aspartate Amino Transf (AST/SGOT) 20, Alanine Aminotransferase (ALT/SGPT) 18, Alkaline Phosphatase 25L, Total Protein 6.1L, Albumin 3.0L Microbiology 01/13/17 Blood Culture - Preliminary, Resulted No growth 01/13/17 Fecal Leukocyte Stain - Final, Resulted 01/13/17 C. difficile GDH Antigen & Toxins - Final, Resulted 01/13/17 Stool Culture - Preliminary, Resulted 01/13/17 MRSA Screen - Final, Complete MRSA not isolated 01/13/17 Urine Culture - Preliminary, Resulted Klebsiella Pneumoniae Gram Negative Jimmy#2 Enterococcus Faecalis Procedures NAME: LUIS PALACIO [facility] REC#: [id number] PT STATUS: ADM IN : 1960 PHYSICIAN: ARSEN DYER MD ADMIT DATE: 01/13/17/ICU Signed Date of Exam: 01/14/17 CHEST 1 VIEW, AP/PA ONLY Portable chest compared to prior study from January 13, 2017. INDICATION: Cough, congestion. FINDINGS: Lungs demonstrate no evidence of focal pulmonary infiltrate or consolidation. There is no evidence of effusion or pneumothorax. Heart size and mediastinal contours appear appropriate. Pulmonary vascularity appears within normal limits. IMPRESSION: No radiographic evidence of an acute cardio pulmonary process. Dictated by: Dictated on workstation # [id number] Dict: 01/14/1743 Trans: 01/14/17941 Interpreted by: GISELE SANDOVAL MD Electronically signed by: GISELE SANDOVAL MD 01/14/17941 A/P: Assessment: PAF with RVR, probably precipitated by elec imbalance due to diarrhea due to ac GI illness - converted to SR Ac GI illness, being [place] [facility] [place] Obesity-hypoventilation and obstructive sleep apnea syndrome, treated by Dr Lagos H/o laparoscopic cholecystectomy in 2015 TSH 0.55 on 01-13-17 Plan: * Maintain electrolyte homeostasis * iv fluids * Echo to eval LV and cardiac valve function - pending * Apixaban for stroke prophylaxis * Long-acting dilt to control heart rate - currently SR * Monitor labs Physician Assessment Physician Assessment Lungs: clear Cor: reg Ext: no c/c/e Echo prelim: LVEF normal A&R * As documented in our note above that I updated (italics) and as noted below * I spoke with her and with also discussed her case in detail with Dr Kuhn today * Advised good hydration and K-rich foods Clinical Quality Measures AMI/AHF: ASA po Prior to arrival: BRUNO Hooper [employer] WORK[employer] Jan 15, 2017 08:22 ALEXANDRO BOURNE MD [facility] Jan 15, 2017 10:01
--- NOTE | 2017-01-15 08:52 | Discharge Summary ---
Diagnosis/Chief Complaint Date of Admission Jan 13, 2017 at 18:10 Date of Discharge 01/15/17 Discharge Date: Jan 15, 2017 Discharge Time: 12:00 Admission Diagnosis Admission Diagnosis 1.fulminant diarrhea probably antibiotic induced. 2.bronchitis as initial symptom. 3.atrial fibrillation with rapid ventricular response Discharge Diagnosis ATRIAL FIBRILLATION WITH RVR KLEBSIELLA PNEUMONIAE UTI ENTEROCOCCUS FAECALIS UTI ANTIBIOTIC INDUCED DIARRHEA HYPOKALEMIA HYPOPHOSPHATEMIA BRONCHITIS APHTHOUS ULCER Reason Hospital Visit PT IS A 56 Y/O FEMALE WHO IS KNOWN TO ME FROM CLINIC. SHE HAD BEEN SEEN BY THE NURSE PRACTITIONER LAST WEEK WITH DIAGNOSIS OF BRONCHITIS - RX FOR AUGMENTIN, AND PATIENT DEVELOPED DIARRHEA. PT REPORTS THAT SHE HAD EXCESSIVE DIARRHEA, WAS UNABLE TO KEEP UP WITH HER OUTPUT, AND THEN STARTED TO HAVE PALPITATIONS, WAS ADMITTED THROUGH THE EMERGENCY DEPARTMENT FOR AFIB WITH RVR, HYPOKALEMIA, AND UNCONTROLLED DIARRHEA. Discharge Summary Consultations DR. BOURNE Discharge Physical Examination Allergies: Coded Allergies: codeine (Unverified Allergy, Mild, 08/02/09) Vitals & I&Os Vital Signs Date Time Temp Pulse Resp B/P (MAP) Pulse Ox O2 Delivery O2 Flow Rate FiO2 01/15/17 07:00 97 01/15/17 06:00 152/78 94 Nasal Cannula 2.00 01/15/17 04:00 99.5 01/14/17 19:00 20 General Appearance: Alert, Oriented X3, Cooperative, No Acute Distress HEENT: Atraumatic, PERRLA Cardiovascular: Regular Rate Abdominal: Normal Bowel Sounds, Soft, Other (TTP OVER LOWER ABDOMINAL QUADRANTS BILATERALLY) Extremities: No Clubbing, No Cyanosis Skin: Other (SMALL IRRITATION LEFT LATERAL UPPER LIP) Neuro: Strength at 5/5 X4 Ext, Cranial Nerves 3-12 NL Psych/Mental Status: Mental Status NL, Mood NL Hospital Course ATRIAL FIBRILLATION WITH RVR KLEBSIELLA PNEUMONIAE UTI ENTEROCOCCUS FAECALIS UTI ANTIBIOTIC INDUCED DIARRHEA HYPOKALEMIA HYPOPHOSPHATEMIA BRONCHITIS APHTHOUS ULCER ATRIAL FIBRILLATION WITH RVR - SUSPECT DUE TO ELECTROLYTE ABNORMALITIES - ECHO NEGATIVE -PLAN FOR DISCHARGE TO HOME ON CARDIZEM, ELIQUIS AND MONITOR LABS OUTPATIENT, IF HER HEART RATE NORMALIZES WITH THE CONTROL OF ELECTROLYTE ABNORMALITIES, WILL LIKELY STOP HER CARDIZEM AND ELIQUIS - PER MY CONVERSATION WITH DR. BOURNE. HE SUSPECTS THAT THE AFIB IS DUE TO HER ELECTROLYTE ABNORMALITIES. KLEBSIELLA PNEUMONIAE UTI AND ENTEROCOCCUS FAECALIS UTI WITH ANOTHER YET UNIDENTIFIED GRAM NEGATIVE KIRBY - PLAN TO TREAT WITH CIPRO X 5 DAYS AND KEFLEX FOR PULMONARY SYMPTOMS X 5 MORE DAYS WELL. ANTIBIOTIC INDUCED DIARRHEA - QUESTRAN, PROBIOTICS, MONITOR SYMPTOMS - CDIFF NEGATIVE HYPOKALEMIA AND HYPOPHOSPHATEMIA - REPLACE WITH ORAL SUPPLEMENTATION - CHECK LABS ON SUNDAY BRONCHITIS - KEFLEX X 5 DAYS, START TESSALON PERLES. APHTHOUS ULCER - RX FOR ACYCLOVIR 800MG TID X 7 DAYS. DISCHARGE TO HOME, MONITOR LABS ON SUNDAY. Pending Labs Laboratory Tests 01/15/17 04:30: White Blood Count 4.5, Red Blood Count 3.59, Hemoglobin 11.1, Hematocrit 34, Mean Corpuscular Volume 95, Mean Corpuscular Hemoglobin 31, Mean Corpuscular Hemoglobin Concent 33, Red Cell Distribution Width 12.8, Platelet Count 144, Mean Platelet Volume 10.1, Neutrophils (%) (Auto) 70, Lymphocytes (%) (Auto) 20 , Monocytes (%) (Auto) 6, Eosinophils (%) (Auto) 4, Basophils (%) (Auto) 1, Neutrophils # (Auto) 3.1, Lymphocytes # (Auto) 0.9, Monocytes # (Auto) 0.3, Eosinophils # (Auto) 0.2, Basophils # (Auto) 0.0, Sodium Level 136, Potassium Level 3.8, Chloride Level 108, Carbon Dioxide Level 19, Anion Gap 9, Blood Urea Nitrogen 5, Creatinine 0.68, Estimat Glomerular Filtration Rate > 60, BUN/ Creatinine Ratio 7, Glucose Level 91, Calcium Level 8.2, Phosphorus Level 2.1, Magnesium Level 2.1, Total Bilirubin 0.4, Aspartate Amino Transf (AST/SGOT) 20, Alanine Aminotransferase (ALT/SGPT) 18, Alkaline Phosphatase 25, Total Protein 6.1, Albumin 3.0 Discharge Condition at discharge IMPROVING Instructions to patient/family Please see electronic discharge instructions given to patient. Discharge Medications Reviewed and agree with Discharge Medication list on patient's Discharge Instruction sheet Clinical Quality Measures AMI/AHF: ASA po Prior to arrival: No DVT/VTE Risk/Contraindication: Risk Factor Score Per Nursin RFS Level Per Nursing on Admit: 2=Moderate RIGO LOFTON MD Jan 15, 2017 08:52
[2017-01-15] MEDS ORDERED: DILTIAZEM 240 MG (CARDIZEM CD) CAP PO SCH (09:00)
[2017-01-15] MEDS ORDERED: SODIUM PHOSPHATE INJ 15 MM in NS (IVPB) 100 ML IV ONE (09:00)
[2017-01-15] MEDS ORDERED: CIPROFLOXACIN IV 400MG/200ML 200 ML IV NR (09:00)
[2017-01-15] MEDS ORDERED: CEPH-507 PO (09:06)
[2017-01-15] MEDS ORDERED: APIX5TAB PO (09:06)
[2017-01-15] MEDS ORDERED: ACYC800T PO (09:06)
[2017-01-15] MEDS ORDERED: DILT240C63 PO (09:06)
[2017-01-15] MEDS ORDERED: CHOL4PAC3 PO (09:06)
[2017-01-15] MEDS ORDERED: LACT1CAP72 PO (09:06)
[2017-01-15] MEDS ORDERED: CIPR500T4 PO (09:06)
[2017-01-15] MEDS ORDERED: KCL 20 MEQ TAB (K-DUR) PO NR (09:15)
--- NOTE | 2017-01-15 09:25 | Discharge Inst-Complex ---
PDI Med Rec & Follow Up Appt. New Medications: Acyclovir (Acyclovir) 800 Mg Tablet 800 MG PO TID for 5 Days, #15 TAB Cephalexin (Keflex) 500 Mg Capsule 500 MG PO TID for 5 Days, #15 CAP Ciprofloxacin HCl (Ciprofloxacin HCl) 500 Mg Tablet 500 MG PO BID for 5 Days, #10 TAB Lactobacillus Combo No.10 (Probiotic) 1 Each Capsule 1 EACH PO QID for 10 Days, #40 CAP Apixaban (Eliquis) 5 Mg Tablet 5 MG PO BID for 30 Days, #60 TAB 1 Refill Cholestyramine/Aspartame (Prevalite Packet) 4 Gm Powd.pack 4 GM PO BID for 10 Days, #20 EACH Diltiazem HCl (Diltiazem 24Hr Cd) 240 Mg Cap.er.24h 240 MG PO DAILY for 30 Days, #30 CAP 3 Refills Continued Medications: Albuterol Sulfate (Proair Hfa) 1 Puff Puff 2 PUFF IH Q4H PRN for SHORTNESS OF BREATH Alprazolam (Alprazolam) 0.25 Mg Tablet 0.25 MG PO HS PRN for INSOMNIA Cetirizine HCl (Cetirizine HCl) 10 Mg Tablet 10 MG PO DAILY Cholecalciferol (Vitamin D3) (Vitamin D3) 2,000 Unit Capsule 2000 UNIT PO DAILY, CAP Fluoxetine HCl (Fluoxetine HCl) 40 Mg Capsule 40 MG PO DAILY Montelukast Sodium (Montelukast Sodium) 10 Mg Tablet 10 MG PO DAILY Multivitamin (Multivitamins) 1 Each Tablet 1 TAB PO DAILY, TAB Naproxen (Naproxen) 500 Mg Tablet 500 MG PO DAILY PRN for PAIN-MILD [place]-3 Fatty Acids/Fish Oil (Fish Oil 1,200 mg Softgel) 1 Each Capsule 1200 MG PO DAILY, CAP Oxybutynin Chloride (Oxybutynin Chloride ER) 10 Mg Tab.er.24 10 MG PO DAILY Pantoprazole Sodium (Pantoprazole Sodium) 20 Mg Tablet.dr 40 MG PO BID Prednisone (Prednisone) 10 Mg Tab PO UD TK 6 TS PO DAILY X 2 DAYS, THEN DECREASE BY 1 TABLET EVERY OTHER DAY UNTIL GONE Discontinued Medications: Amoxicillin/Potassium Clav (Amox Tr-K Clv 875-125 mg Tab) 1 Each Tablet 1 TAB PO BID Prescription: Transmitted to Pharmacy Patient Instructions: CALL FOR ANY CONCERN OF WORSENING SYMPTOMS Activity, Diet and PDI Resume Normal Activity: Yes (OFF OF WORK UNTIL 01/19/17) Drink 6-8 Glasses of Fluid/Day: Yes Driving Instructions: No Driving for 24 Hours Symptoms to Reoprt to : Appetite Changes, Fever Over 101 Degrees F, Pain/ Pressure in Chest, Diarrhea(Persistant), Questions/Concerns, Shortness of Breath , Weight Gain Over 2 Pounds For Problems or Questions: Contact Your Physician Infection Signs and Symptoms: Temperature Above 101 F RIGO LOFTON MD Jan 15, 2017 09:25
[2017-01-15] MEDS: ACYCLOVIR 400 MG TABLET (ZOVIRAX) PO SCH ×3 (09:26→17:01)
[2017-01-15] MEDS: LACTOBACILLUS Acidoph/Bulgar (LACTINEX/FLORANEX) TAB PO SCH ×3 (09:26→16:10)
[2017-01-15] MEDS: BENZONATATE 100 MG (TESSALON) CAPSULE PO SCH ×2 (09:27→13:55)
[2017-01-15] MEDS: CHOLESTYRAMINE 4 GM (QUESTRAN LITE, PREVALITE) PKT PO SCH (10:42)
[2017-01-15] MEDS ORDERED: SUCRALFATE 1 GM (CARAFATE) TAB PO ONE (11:45)
[2017-01-15] MEDS ORDERED: ONDANSETRON 4 MG (ZOFRAN) ORAL DISSOLVE TAB PO ONE (11:45)
[2017-01-15] MEDS ORDERED: KETOROLAC 30 MG/ML VIAL IVP ONE (13:45)
[2017-01-15] MEDS ORDERED: BENZ100C23 PO (14:22)
[2017-01-15] MEDS ORDERED: SUCR1TAB36 PO (14:22)
[2017-01-15] MEDS ORDERED: ONDA4TAB8 PO (14:22)
== END 2017-01-15 17:20 | disposition home or self-care (01) | DRG 309 ==
LOC: EDUNIT# 16:25 → ER 16:28 → ICU 18:10
PROVIDERS: ADMIT Internal Medicine; ATTEND Family Medicine
DX: I48.0 Paroxysmal atrial fibrillation (principal); N39.0 Urinary tract infection, site not specified; K52.1 Toxic gastroenteritis and colitis; T36.95XA Adverse effect of unspecified systemic antibiotic, initial encounter; E66.2 Morbid (severe) obesity with alveolar hypoventilation; Z68.43 Body mass index [BMI] 50.0-59.9, adult; C85.90 Non-Hodgkin lymphoma, unspecified, unspecified site; E87.6 Hypokalemia; E83.39 Other disorders of phosphorus metabolism; E03.9 Hypothyroidism, unspecified; K21.9 Gastro-esophageal reflux disease without esophagitis; F41.9 Anxiety disorder, unspecified; J40 Bronchitis, not specified as acute or chronic; K12.0 Recurrent oral aphthae; B96.1 Klebsiella pneumoniae [K. pneumoniae] as the cause of diseases classified elsewhere; B95.2 Enterococcus as the cause of diseases classified elsewhere
CPT/HCPCS: 36415; 71010; 80048; 80053; 81000; 82962; 83605; 83735; 84100; 84443; 84484; 85025; 85610; 85730; 87040; 87045; 87046; 87070; 87077; 87081; 87088; 87186; 87205; 87324; 87449; 89055; 93005; 93306

== ENCOUNTER → 2017-01-24 | Outpatient (CLI) | payer OTHER ==
[~2017-01-24] MED LIST changes: +ACYC800T PO; +ALPR0.254 PO; +AMOX1TAB12 PO; +APIX5TAB PO; +BENZ-36 PO; +CEPH-507 PO; +CETI10TA17 PO; +CHOL20003 PO; +CHOL4PAC3 PO; +CIPR500T4 PO; +DILT240C63 PO; +FLUO40CA PO; +LACT1CAP72 PO; +MONT10TA24 PO; +NAPR500T4 PO; +OMEG-109 PO; +ONDA4TAB8 PO; +OXYB10TA PO; +PANT20TA3 PO; +PRD10T PO; +RT-ALBUINH IH; +SUCR1TAB36 PO
[2017-01-24 16:14] LABS: THYROID STIMULATING HORMONE 0.86 UIU/ML (0.35-4.94)
== END ==
LOC: LAB 15:15
PROVIDERS: ATTEND Nurse Practitioner Family
DX: E03.9 Hypothyroidism, unspecified (principal); E55.9 Vitamin D deficiency, unspecified
CPT/HCPCS: 36415; 82306; 84439; 84443

== ENCOUNTER → 2017-01-24 | Outpatient (CLI) | payer OTHER ==
[2017-01-24 15:50] LABS: ANION GAP 11 MMOL/L (5-14); BLOOD UREA NITROGEN 15 MG/DL (7-18); BUN/CREATININE RATIO 18; CALCIUM 9.4 MG/DL (8.5-10.1); CARBON DIOXIDE 26 MMOL/L (21-32); CHLORIDE 100 MMOL/L (98-107); CREATININE SERUM 0.84 MG/DL (0.60-1.30); GFR ESTIMATED > 60; GLUCOSE 110 MG/DL (70-105); MAGNESIUM 2.2 MG/DL (1.8-2.4); POTASSIUM 4.3 MMOL/L (3.6-5.0); SODIUM 137 MMOL/L (135-145)
== END ==
LOC: LAB 15:12
PROVIDERS: ATTEND Nurse Practitioner Family
DX: I48.0 Paroxysmal atrial fibrillation (principal); G47.33 Obstructive sleep apnea (adult) (pediatric); E66.01 Morbid (severe) obesity due to excess calories; Z79.01 Long term (current) use of anticoagulants
CPT/HCPCS: 36415; 80048; 83735

== ENCOUNTER → 2017-01-30 | Outpatient (CLI) | payer OTHER ==
[~2017-01-30] MED LIST changes: -BENZ-36 PO; +BENZ100C23 PO; +CATHETER FLUSH 10 ML SYR IV PRN; +NAPR500T3 PO; -NAPR500T4 PO; +REGADENOSON 0.4 MG/5 ML SYR (LEXISCAN) IV ONE
[2017-01-30 09:09] VITALS: BP 153/72
== END ==
LOC: CARD 06:49
PROVIDERS: ATTEND Nurse Practitioner Family
DX: I48.0 Paroxysmal atrial fibrillation (principal); G47.33 Obstructive sleep apnea (adult) (pediatric); E66.01 Morbid (severe) obesity due to excess calories; Z79.01 Long term (current) use of anticoagulants
CPT/HCPCS: 78452; 93017

== ENCOUNTER → 2017-09-21 | Outpatient (CLI) | payer OTHER ==
[~2017-09-21] MED LIST changes: +BENZ-36 PO; -BENZ100C23 PO; -CATHETER FLUSH 10 ML SYR IV PRN; +NAPR-915 PO; -NAPR500T3 PO; -REGADENOSON 0.4 MG/5 ML SYR (LEXISCAN) IV ONE
--- NOTE | 2017-09-21 08:33 | Diagnostic Imaging Report ---
Indication: Back pain AP and lateral views of the lumbar spine are obtained, including flexion and extension views At L4-5, there is anterolisthesis by about 3 mm in the neutral position, this increases to about 6 mm during flexion. There is some disc space narrowing at L4-5. There are small osteophytes at L2, L3, and L4. There is facet degenerative change at L4-5 and L5-S1. IMPRESSION: There is anterolisthesis of L4 on 5 which increases in the flexion position as above. There are diffuse mild osteophytes. There is no compression deformity. There are degenerative changes in the facets from L3-S1. Dictated by: Dictated on workstation # [id number]
--- NOTE | 2017-09-21 12:47 | Diagnostic Imaging Report ---
INDICATION: Neck stiffness and right arm tingling. TIME OF EXAMINATION: 08:08 a.m. EXAMINATION: AP, lateral as well as lateral flexion and extension views of the cervical spine were obtained. FINDINGS: Neutral lateral view does show some straightening. There is minimal retrolisthesis of C5 on C6. There appears to be minimal anterolisthesis of C4 on C5 on the neutral view. There is also anterolisthesis of C7 on T1 on the neutral view. There is significant degenerative disc disease C5-C6 and C6-C7 levels, with disc space narrowing and marginal spurring. Prevertebral tissues are normal. There appears to be minimal anterolisthesis of C4 on C5 during flexion. This corrects during extension. In addition, there appears to be increasing anterolisthesis of C7 on T1 on the flexion view which corrects to minimal anterolisthesis on the extension view. This area is more difficult to evaluate due to some obscuration by overlying tissues. Prevertebral tissues are normal. No other abnormalities are seen. IMPRESSION: Severe lower lumbar spondylosis. There also appears to be some motion at the C4-C5 and C7-T1 levels, as described. Dictated by: Dictated on workstation # [id number]
== END ==
LOC: RAD 07:31
PROVIDERS: ATTEND Neurological Surgery
DX: M47.27 Other spondylosis with radiculopathy, lumbosacral region (principal); M51.16 Intervertebral disc disorders with radiculopathy, lumbar region; M43.13 Spondylolisthesis, cervicothoracic region; M50.122 Cervical disc disorder at C5-C6 level with radiculopathy; M43.16 Spondylolisthesis, lumbar region; R93.41 Abnormal radiologic findings on diagnostic imaging of renal pelvis, ureter, or bladder
CPT/HCPCS: 72050; 72110

== ENCOUNTER 2017-11-20 10:21 | Outpatient (RCR) | payer OTHER ==
[2017-08-27 08:17] LABS: BASOPHILS % (AUTO) 1 % (0-10); EOSINOPHILS # (AUTO) 0.4 10^3/uL (0.0-0.3); EOSINOPHILS % (AUTO) 7 % (0-10); HEMATOCRIT 38 % (35-52); HEMOGLOBIN 12.6 G/DL (11.5-16.0); LYMPHOCYTES # (AUTO) 2.4 X 10^3 (1.0-4.0); LYMPHOCYTES % (AUTO) 41 % (12-44); MEAN CORPUSCULAR HEMOGLOBIN 30 PG (25-34); MEAN CORPUSCULAR HGB CONC 33 G/DL (32-36); MEAN CORPUSCULAR VOLUME 91 FL (80-99); MONOCYTES # (AUTO) 0.5 X 10^3 (0.0-1.0); MONOCYTES % (AUTO) 8 % (0-12); NEUTROPHILS # (AUTO) 2.5 X 10^3 (1.8-7.8); NEUTROPHILS % (AUTO) 44 % (42-75); PLATELET COUNT 248 10^3/uL (130-400); RED BLOOD COUNT 4.15 10^6/uL (4.35-5.85); RED CELL DISTRIBUTION WIDTH 12.9 % (10.0-14.5); WHITE BLOOD COUNT 5.8 10^3/uL (4.3-11.0)
[2017-08-27 08:37] LABS: ALANINE AMINOTRANSFERASE 16 U/L (0-55); ALBUMIN 3.8 GM/DL (3.2-4.5); ALKALINE PHOSPHATASE 32 U/L (40-136); BILIRUBIN,TOTAL 0.4 MG/DL (0.1-1.0); BUN/CREATININE RATIO 30; CALCIUM 9.2 MG/DL (8.5-10.1); CARBON DIOXIDE 25 MMOL/L (21-32); CHLORIDE 104 MMOL/L (98-107); CREATININE SERUM 0.77 MG/DL (0.60-1.30); GFR ESTIMATED > 60; GLUCOSE 102 MG/DL (70-105); POTASSIUM 3.8 MMOL/L (3.6-5.0); SODIUM 138 MMOL/L (135-145); TOTAL PROTEIN 7.5 GM/DL (6.4-8.2)
[2017-11-20 10:41] LABS: BASOPHILS # (AUTO) 0.1 10^3/uL (0.0-0.1); BASOPHILS % (AUTO) 1 % (0-10); EOSINOPHILS # (AUTO) 0.1 10^3/uL (0.0-0.3); EOSINOPHILS % (AUTO) 3 % (0-10); HEMATOCRIT 39 % (35-52); HEMOGLOBIN 13.4 G/DL (11.5-16.0); LYMPHOCYTES # (AUTO) 1.3 X 10^3 (1.0-4.0); LYMPHOCYTES % (AUTO) 28 % (12-44); MEAN CORPUSCULAR HEMOGLOBIN 32 PG (25-34); MEAN CORPUSCULAR HGB CONC 34 G/DL (32-36); MEAN CORPUSCULAR VOLUME 93 FL (80-99); MONOCYTES # (AUTO) 0.3 X 10^3 (0.0-1.0); MONOCYTES % (AUTO) 7 % (0-12); NEUTROPHILS # (AUTO) 2.8 X 10^3 (1.8-7.8); NEUTROPHILS % (AUTO) 62 % (42-75); PLATELET COUNT 245 10^3/uL (130-400); RED BLOOD COUNT 4.25 10^6/uL (4.35-5.85); RED CELL DISTRIBUTION WIDTH 12.7 % (10.0-14.5); WHITE BLOOD COUNT 4.6 10^3/uL (4.3-11.0)
[2017-11-20 11:04] LABS: ALANINE AMINOTRANSFERASE 14 U/L (0-55); ALBUMIN 3.9 GM/DL (3.2-4.5); ALKALINE PHOSPHATASE 34 U/L (40-136); BILIRUBIN,TOTAL 0.6 MG/DL (0.1-1.0); BUN/CREATININE RATIO 17; CALCIUM 9.7 MG/DL (8.5-10.1); CARBON DIOXIDE 27 MMOL/L (21-32); CHLORIDE 105 MMOL/L (98-107); CREATININE SERUM 0.76 MG/DL (0.60-1.30); GFR ESTIMATED > 60; GLUCOSE 98 MG/DL (70-105); POTASSIUM 4.4 MMOL/L (3.6-5.0); SODIUM 140 MMOL/L (135-145); TOTAL PROTEIN 7.9 GM/DL (6.4-8.2)
== END 2017-11-25 | disposition home or self-care (01) ==
LOC: ONC 10:21
PROVIDERS: ATTEND Internal Medicine Hematology & Oncology
DX: C83.30 Diffuse large B-cell lymphoma, unspecified site (principal); E78.5 Hyperlipidemia, unspecified; E03.9 Hypothyroidism, unspecified; Z79.899 Other long term (current) drug therapy
CPT/HCPCS: 36415; 80053; 83615; 85025; 99213

== ENCOUNTER → 2017-11-20 | Outpatient (CLI) | payer OTHER | LOC: LAB 10:58 | PROVIDERS: ATTEND Nurse Practitioner Family | DX: R19.7 Diarrhea, unspecified (principal) | CPT/HCPCS: 82274; 87045; 87046; 87324; 87328; 87329; 87449 ==

== ENCOUNTER → 2018-02-26 | Outpatient (CLI) | payer OTHER ==
[~2018-02-26] MED LIST changes: -DILT240C63 PO; +DILT240C97 PO
--- NOTE | 2018-02-27 09:58 | Diagnostic Imaging Report ---
INDICATION: Routine screening. COMPARISON: 01/28/2015 and 09/25/2012. TECHNIQUE: 2D and 3D bilateral screening mammography was performed with CAD. FINDINGS: Both breasts are heterogeneously dense, limiting the sensitivity of mammography. The circumscribed densities appear to be stable and were previously shown to represent cysts. No new mass or malignant appearing microcalcifications are seen. The axillae are unremarkable. IMPRESSION: No mammographic features suspicious for malignancy are identified. ACR BI-RADS Category 2: Benign findings. Result letter will be mailed to the patient. Note: At least 10% of breast cancer is not imaged by mammography. Dictated by: Dictated on workstation # [id number]
== END ==
LOC: RAD 15:42
PROVIDERS: ATTEND Nurse Practitioner Family
DX: Z12.31 Encounter for screening mammogram for malignant neoplasm of breast (principal)
CPT/HCPCS: 77067

== ENCOUNTER 2018-11-28 09:33 | Outpatient (RCR) | payer OTHER ==
[2018-11-28 09:48] LABS: BASOPHILS % (AUTO) 1 % (0-10); EOSINOPHILS # (AUTO) 0.2 10^3/uL (0.0-0.3); EOSINOPHILS % (AUTO) 4 % (0-10); HEMATOCRIT 41 % (35-52); HEMOGLOBIN 13.3 G/DL (11.5-16.0); LYMPHOCYTES # (AUTO) 1.5 X 10^3 (1.0-4.0); LYMPHOCYTES % (AUTO) 28 % (12-44); MEAN CORPUSCULAR HEMOGLOBIN 31 PG (25-34); MEAN CORPUSCULAR HGB CONC 33 G/DL (32-36); MEAN CORPUSCULAR VOLUME 95 FL (80-99); MEAN PLATELET VOLUME 9.7 FL (7.4-10.4); MONOCYTES # (AUTO) 0.3 X 10^3 (0.0-1.0); MONOCYTES % (AUTO) 6 % (0-12); NEUTROPHILS # (AUTO) 3.2 X 10^3 (1.8-7.8); NEUTROPHILS % (AUTO) 62 % (42-75); PLATELET COUNT 247 10^3/uL (130-400); RED CELL DISTRIBUTION WIDTH 12.7 % (10.0-14.5); WHITE BLOOD COUNT 5.2 10^3/uL (4.3-11.0)
[2018-11-28 10:07] LABS: ALANINE AMINOTRANSFERASE 30 U/L (0-55); ALBUMIN 3.9 GM/DL (3.2-4.5); ALKALINE PHOSPHATASE 32 U/L (40-136); BILIRUBIN,TOTAL 0.5 MG/DL (0.1-1.0); BUN/CREATININE RATIO 14; CALCIUM 9.7 MG/DL (8.5-10.1); CARBON DIOXIDE 24 MMOL/L (21-32); CHLORIDE 103 MMOL/L (98-107); CREATININE SERUM 0.83 MG/DL (0.60-1.30); GFR ESTIMATED > 60; GLUCOSE 101 MG/DL (70-105); POTASSIUM 4.1 MMOL/L (3.6-5.0); SODIUM 140 MMOL/L (135-145); TOTAL PROTEIN 7.3 GM/DL (6.4-8.2)
== END 2019-02-26 | disposition home or self-care (01) ==
LOC: ONC 09:33
PROVIDERS: ATTEND Internal Medicine Hematology & Oncology
DX: C83.30 Diffuse large B-cell lymphoma, unspecified site (principal); E78.5 Hyperlipidemia, unspecified; E03.9 Hypothyroidism, unspecified; Z79.899 Other long term (current) drug therapy
CPT/HCPCS: 36415; 80053; 83615; 85025; 99213

== ENCOUNTER → 2019-04-15 | Outpatient (CLI) | payer OTHER ==
--- NOTE | 2019-04-15 13:01 | Diagnostic Imaging Report ---
INDICATION: Routine screening. COMPARISON: 02/26/2018 and 01/28/2015. TECHNIQUE: 2D and 3D bilateral screening mammography was performed with CAD. FINDINGS: Both breasts are heterogeneously dense, limiting the sensitivity of mammography. Bilateral circumscribed masses are again noted, suggestive of cysts. No spiculated mass is seen. There are benign calcifications. No suspicious microcalcifications are seen. The axillae are unremarkable. IMPRESSION: No mammographic features suspicious for malignancy are identified. ACR BI-RADS Category 2: Benign findings. Result letter will be mailed to the patient. Note: At least 10% of breast cancer is not imaged by mammography. Dictated by: Dictated on workstation # [id number]
== END ==
LOC: RAD 07:35
PROVIDERS: ATTEND Nurse Practitioner Family
DX: Z12.31 Encounter for screening mammogram for malignant neoplasm of breast (principal)
CPT/HCPCS: 77067

== ENCOUNTER → 2019-08-20 | Outpatient (CLI) | payer OTHER ==
[~2019-08-20] MED LIST changes: +DILT240C92 PO; -DILT240C97 PO; -MONT10TA24 PO; +MONT10TA26 PO; -OXYB10TA PO; +OXYB10TA29 PO; -TRAM50TA2 PO; +TRM50T PO
== END ==
LOC: LABNPT 13:20
PROVIDERS: ATTEND Family Medicine
DX: R05 Cough (principal); R06.00 Dyspnea, unspecified; R53.81 Other malaise; R68.83 Chills (without fever)
CPT/HCPCS: 87430; 87635; 87804

== ENCOUNTER → 2020-05-14 | Outpatient (CLI) | payer OTHER ==
[~2020-05-14] MED LIST changes: -ALPR0.254 PO; -MONT10TA26 PO; +MONT10TA97 PO; +MULT-567 PO; -MULT1TAB69 PO; +PANT20TA18 PO; -PANT20TA3 PO
== END ==
LOC: LABNPT 08:50
PROVIDERS: ATTEND Family Medicine
DX: R51.9 Headache, unspecified (principal); R19.7 Diarrhea, unspecified; R06.02 Shortness of breath
CPT/HCPCS: 87804

== ENCOUNTER → 2020-11-24 | Outpatient (CLI) | payer OTHER ==
[~2020-11-24] MED LIST changes: +ACYC-112 PO; -ACYC800T PO; -CIPR500T4 PO; +CIPR500T5 PO; +MONT10TA32 PO; -MONT10TA97 PO
[2020-11-24 13:20] LABS: HEMATOCRIT 41 % (35-52); HEMOGLOBIN 13.1 g/dL (11.5-16.0); MEAN CORPUSCULAR HEMOGLOBIN 31 pg (25-34); MEAN CORPUSCULAR HGB CONC 32 g/dL (32-36); MEAN CORPUSCULAR VOLUME 97 fL (80-99); MEAN PLATELET VOLUME 9.9 fL (9.0-12.2); PLATELET COUNT 274 10^3/uL (130-400)
--- NOTE | 2020-11-24 13:20 | Diagnostic Imaging Report ---
INDICATION: Right nipple pain. COMPARISON: Correlation is made with the diagnostic mammogram from earlier this same day. TECHNIQUE: Sonographic interrogation of the periareolar and retroareolar right breast was performed. FINDINGS: There are numerous simple cysts with the largest measuring approximately 2.7 cm in diameter in the retroareolar right breast. No solid masses are detected. IMPRESSION: Numerous right breast cysts. No solid mass is detected. ACR BI-RADS Category 2: Benign findings. Dictated by: Dictated on workstation # [id number]
--- NOTE | 2020-11-24 13:24 | Diagnostic Imaging Report ---
INDICATION: Right nipple pain. COMPARISON: 04/15/2019 and 02/26/2018. TECHNIQUE: 2D and 3D bilateral screening mammography was performed with CAD. FINDINGS: There are numerous circumscribed masses throughout both breasts, consistent with cysts. These have waxed and waned when compared with the prior exams. No spiculated mass is identified. No malignant-appearing microcalcifications are seen. The axillae are unremarkable. IMPRESSION: 1. There are circumscribed masses bilaterally, consistent with cysts. 2. No definite mammographic features suspicious for malignancy are identified. Even so, directed sonographic interrogation of the retroareolar right breast at the area of nipple pain is recommended and will be performed today. ACR BI-RADS Category 0: Incomplete. (Needs additional imaging evaluation). Result letter will be mailed to the patient. Note: At least 10% of breast cancer is not imaged by mammography. Dictated by: Dictated on workstation # [id number]
[2020-11-24 13:38] LABS: ALBUMIN 3.8 GM/DL (3.2-4.5); POTASSIUM 3.8 MMOL/L (3.6-5.0)
[2020-11-24 13:40] LABS: CALCIUM 9.1 MG/DL (8.5-10.1)
[2020-11-24 13:41] LABS: TOTAL PROTEIN 7.3 GM/DL (6.4-8.2)
[2020-11-24 13:43] LABS: BILIRUBIN,TOTAL 0.4 MG/DL (0.1-1.0)
[2020-11-24 13:44] LABS: CREATININE SERUM 0.8 MG/DL (0.60-1.30)
== END ==
LOC: RAD 12:45
PROVIDERS: ATTEND Nurse Practitioner Family
DX: N60.01 Solitary cyst of right breast (principal); D64.9 Anemia, unspecified; E55.9 Vitamin D deficiency, unspecified
CPT/HCPCS: 76642; 77066; 80053; 82306; 82607; 85027; G0279; 36415; 77062

== ENCOUNTER → 2020-12-20 | Outpatient (CLI) | payer OTHER | LOC: LABNPT 12:43 | PROVIDERS: ATTEND Family Medicine | DX: Z20.822 Contact with and (suspected) exposure to COVID-19 (principal) | CPT/HCPCS: 87635 ==

== ENCOUNTER → 2020-12-20 | Outpatient (CLI) | payer OTHER | LOC: LABNPT 08:22 | PROVIDERS: ATTEND Family Medicine | DX: Z53.9 Procedure and treatment not carried out, unspecified reason (principal) ==

== ENCOUNTER → 2020-12-31 | Outpatient (CLI) | payer OTHER | LOC: LABNPT 08:54 | PROVIDERS: ATTEND Family Medicine | DX: Z20.822 Contact with and (suspected) exposure to COVID-19 (principal) | CPT/HCPCS: 87636 ==

== ENCOUNTER → 2021-02-09 | Outpatient (CLI) | payer OTHER ==
--- NOTE | 2021-02-09 14:02 | Diagnostic Imaging Report ---
INDICATION: Painful lump left breast. Sonographic interrogation of the area of lump in the left breast was performed. This corresponds to the 12:00 retroareolar location. There is a cyst with internal debris at this location measuring 2.7 x 2.6 x 2.9 cm. Adjacent to this is a more simple appearing cyst measuring 4.1 x 2.1 x 2.3 cm, at the 11:00 retroareolar region. No solid mass is detected. IMPRESSION: BI-RADS Category 2 Large cysts at the 11:00 and 12:00 retroareolar left breast, likely accounting for the palpable abnormality. The cyst at 12:00 does show some internal debris and complexity. No solid lesion is detected. ACR BI-RADS Category 2: Benign findings. Result letter will be mailed to the patient. Note: At least 10% of breast cancer is not imaged by mammography. Dictated by: Dictated on workstation # [id number]
== END ==
LOC: RAD 12:00
PROVIDERS: ATTEND Family Medicine
DX: N60.02 Solitary cyst of left breast (principal)
CPT/HCPCS: 76642

== ENCOUNTER 2021-07-25 09:37 | Emergency (ER) | payer OTHER ==
[~2021-07-25] VITALS: Ht 165.1 cm; Wt 136.1 kg
[~2021-07-25 09:37] MED LIST changes: +MONT-40 PO; -MONT10TA32 PO
--- NOTE | 2021-07-25 10:16 | ED General ---
General Stated Complaint: SOA - N/V DIARRHEA Source of Information: Patient Exam Limitations: No Limitations (ADRIENNE MORLEY STUDENT) History of Present Illness Date Seen by Provider: Jul 25, 2021 Time Seen by Provider: 09:55 Initial Comments Patient is a 60 year old female who presents to the ED with a one month history of nausea, heartburn, diarrhea, malaise, lightheadedness, and increasing subjective fevers/SOA the last few days. Reports that eating and drinking the nausea and diarrhea and at times has been having up to 10 episodes of diarrhea a day. Eating less and fewer meals reduces the frequency of diarrhea to about 4 episodes a day. Reports being seen in the office of Dr. Kuhn a few weeks ago and was given probiotics and has been trying some antacids with no relief of the heartburn symptoms. Reports subjective fevers at home for a few days and increasingly becoming SOB. Denies cough, chills, headache, dysuria, and rash. Reports body aches diffusely. Due to worsening symptoms decided to be seen in the ED today. Timing/Duration: Other (1 month) Severity: Moderate Modifying Factors: improves with Eating Associated Systoms: No Chest Pain, No Cough, No Diaphoresis; Fever/Chills (subjective); No Headaches, No Loss of Appetite; Malaise, Nausea/Vomiting; No Rash; Shortness of Air, Weakness (ADRIENNE MORLEY MED STUDENT) Allergies and Home Medications Allergies Coded Allergies: codeine (Unverified Allergy, Mild, 08/02/09) Patient Home Medication List Home Medication List Reviewed: Yes (ZAHEER TONG MD) ALPRAZolam (Xanax Tablet) 0.25 Mg Tablet, 0.25 MG PO HS PRN for INSOMNIA, (Reported) Entered as Reported by: GUZMAN CHEUNG on 01/14/17 1308 Acyclovir (Acyclovir) 800 Mg Tablet, 800 MG PO TID Prescribed by: RIGO KUHN on 01/15/17 0906 Albuterol Sulfate (Proair Hfa) 1 Puff Puff, 2 PUFF IH Q4H PRN for SHORTNESS OF BREATH, (Reported) Entered as Reported by: GUZMAN CHEUNG on 01/14/17 1308 Apixaban (Eliquis) 5 Mg Tablet, 5 MG PO BID Prescribed by: RIGO KUHN on 01/15/17 09 Benzonatate (Benzonatate) 100 Mg Capsule, 200 MG PO TID Prescribed by: KEZIA EASON on 01/15/17 1422 Cephalexin (Keflex) 500 Mg Capsule, 500 MG PO TID Prescribed by: RIGO KUHN on 01/15/17 09 Cetirizine HCl (Cetirizine HCl) 10 Mg Tablet, 10 MG PO DAILY, (Reported) Entered as Reported by: GUZMAN CHEUNG on 01/14/17 1308 Cholecalciferol (Vitamin D3) (Vitamin D3) 2,000 Unit Capsule, 2,000 UNIT PO DAILY, (Reported) Entered as Reported by: GUZMAN CHEUNG on 01/14/17 130 Cholestyramine/Aspartame (Prevalite Packet) 4 Gm Powd.pack, 4 GM PO BID Prescribed by: RIGO KUHN on 01/15/17 09 Ciprofloxacin HCl (Ciprofloxacin HCl) 500 Mg Tablet, 500 MG PO BID Prescribed by: RIGO KUHN on 01/15/17 09 Diltiazem HCl (Diltiazem 24Hr Cd) 240 Mg Cap.er.24h, 240 MG PO DAILY Prescribed by: RIGO KUHN on 01/15/17 09 Fluoxetine HCl (Fluoxetine HCl) 40 Mg Capsule, 40 MG PO DAILY, (Reported) Entered as Reported by: GUZMAN CHEUNG on 01/14/17 1058 Lactobacillus Combo No.10 (Probiotic) 1 Each Capsule, 1 EACH PO QID Prescribed by: RIGO KUHN on 01/15/17 09 Montelukast Sodium (Montelukast Sodium) 10 Mg Tablet, 10 MG PO DAILY, (Reported) Entered as Reported by: GUZMAN CHEUNG on 01/14/17 1308 Multivitamin (Multivitamins) 1 Each Tablet, 1 TAB PO DAILY, (Reported) Entered as Reported by: KELBY NEGRON on 03/02/16 1602 Naproxen (Naproxen) 500 Mg Tablet, 500 MG PO DAILY PRN for PAIN-MILD, (Reported) Entered as Reported by: GUZMAN CHEUNG on 01/14/17 1308 Troy-3 Fatty Acids/Fish Oil (Fish Oil 1,200 mg Softgel) 1 Each Capsule, 1,200 MG PO DAILY, (Reported) Entered as Reported by: GUZMAN CHEUNG on 01/14/17 1308 Ondansetron (Zofran Odt) 4 Mg Tab.rapdis, 4 MG PO Q6H PRN for NAUSEA/VOMITING- 1ST LINE Prescribed by: KEZIA EASON on 01/15/17 1422 Oxybutynin Chloride (Oxybutynin Chloride ER) 10 Mg Tab.er.24, 10 MG PO DAILY, (Reported) Entered as Reported by: GUZMAN CHEUNG on 01/14/17 1308 Pantoprazole Sodium (Pantoprazole Sodium) 20 Mg Tablet.dr, 40 MG PO BID, (Reported) Entered as Reported by: GUZMAN CHEUNG on 01/14/17 1058 Prednisone (Prednisone) 10 Mg Tab, PO UD, (Reported) Entered as Reported by: GUZMAN CHEUNG on 01/14/17 1308 Sucralfate (Carafate) 1 Gm Tablet, 1 GM PO TID PRN for INDIGESTION Prescribed by: KEZIA EASON on 01/15/17 1422 Review of Systems Review of Systems Constitutional: No chills, No diaphoresis; fever, malaise, weakness EENTM: no symptoms reported; No blurred vision, No hoarseness, No nose congestion, No throat pain Respiratory: No no symptoms reported Cardiovascular: no symptoms reported; No chest pain, No palpitations, No syncope Gastrointestinal: abdominal pain (diffuse); No constipation; diarrhea; No dysphagia, No hematemesis; heartburn; No melena; nausea Genitourinary: no symptoms reported; No decreased output, No dysuria : No Musculoskeletal: no symptoms reported; No back pain, No joint pain, No joint swelling; muscle pain, muscle cramps Skin: no symptoms reported; No change in color, No change in hair/nails, No rash Psychiatric/Neurological: No Symptoms Reported; Denies Anxiety, Denies Depressed, Denies Headache; Numbness (bilat feet) Hematologic/Lymphatic: No Symptoms Reported; Denies Easy Bleeding, Denies Easy Bruising Immunological/Allergic: no symptoms reported (ADRIENNE MORLEY STUDENT) All Other Systems Reviewed Negative Unless Noted: Yes (ADRIENNE MORLEY STUDENT) Past Ovsxxua-Zkpwxm-Nadvzc Hx Patient Social History Tobacco Use?: No Smoking Status: Never a Smoker Smokeless Tobacco Frequency: Never a User Use of E-Cig and/or Vaping dev: No Substance use?: No Alcohol Use?: Yes Alcohol Frequency: Once in a while (ADRIENNE MORLEY STUDENT) Immunizations Up To Date Tetanus Booster (TDap): Unknown (ADRIENNE MORLEY) Seasonal Allergies Seasonal Allergies: No (ADRIENNE MORLEY) Past Medical History Surgeries: Yes (appy) Appendectomy, Gallbladder, Hysterectomy Respiratory: Yes Sleep Apnea Currently Using CPAP: Yes Cardiac: Yes Atrial Fibrillation Neurological: No : No Reproductive Disorders: 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 Sexually Transmitted Disease: No HIV/AIDS: No Genitourinary: No Gastrointestinal: Yes Gastroesophageal Reflux, Chronic Diarrhea Musculoskeletal: Yes (OSTEO ARTHRITIS) Arthritis, Chronic Back Pain Endocrine: No Hypothyroidsim HEENT: No Loss of Vision: Denies Hearing Impairment: Denies Cancer: Yes Lymphoma, Uterine Did You Recieve Any Treatments: Yes What Type of Treatment Did You: Chemotherapy, Surgical Intervention Psychosocial: Yes (STRESS) Anxiety Integumentary: Yes (occasionally has red spots appear) Blood Disorders: No Adverse Reaction/Blood Tranf: No (ADRIENNE MORLEY) Family Medical History Colon cancer 19 MOTHER (not sure where primary cancer was located) Diabetes mellitus G8 BROTHER Not obtainable due to adoption 19 FATHER Psychosocial problem G8 SISTER (setziaphrenia) Respiratory disorder G8 SISTER (sleep apnea) Thyroid disease G8 SISTER (goiters) Tuberculosis No Pertinent Family Hx (ADRIENNE MORLEY) Physical Exam Vital Signs Vital Signs - First Documented 07/25/21 09:51 Temp 37.0 Pulse 122 Resp 20 B/P (MAP) 124/95 (105) Pulse Ox 93 O2 Delivery Room Air (ZAHEER TONG MD) Vital Signs Capillary Refill : (ADRIENNE MORLEY STUDENT) Height, Weight, BMI Height: 5'4.00" Weight: 292lbs. 5.0oz. 132.423819dc; 48.6 BMI Method:Stated General Appearance: WD/WN, Anxious, Obese Eyes: Bilateral Eye Normal Inspection, Bilateral Eye PERRL, Bilateral Eye EOMI HEENT: PERRL/EOMI, Pharynx Normal, Moist Mucous Membranes Neck: Full Range of Motion, Normal Inspection, Non Tender Respiratory: Chest Non Tender, Lungs Clear, Normal Breath Sounds, No Accessory Muscle Use; No Crackles, No Rhonci, No Wheezing; Other (tachypneic in low 20's) Cardiovascular: Normal Peripheral Pulses, Tachycardia Gastrointestinal: Normal Bowel Sounds, Non Tender, Soft; No Abnormal Bowel Sounds, No Distended, No Guarding, No Rebound Rectal: Deferred Back: Normal Inspection, No Vertebral Tenderness Extremity: Normal Capillary Refill, Non Tender, No Calf Tenderness Neurologic/Psychiatric: Alert, Oriented x3, No Motor/Sensory Deficits Skin: Normal Color, Warm/Dry Lymphatic: No Adenopathy (Head and Neck) (ADRIENNE MORLEY [employer] STUDENT) Progress/Results/Core Measures Suspected Sepsis SIRS Temperature: Pulse: Respiratory Rate: Blood Pressure / Mean: (MILLI[employer] STUDENT) Results/Orders Lab Results Laboratory Tests Test 07/25/21 10:10 Range/Units White Blood Count 3.9 L 4.3-11.0 10^3/uL Red Blood Count 4.54 3.80-5.11 10^6/uL Hemoglobin 13.7 11.5-16.0 g/dL Hematocrit 43 35-52 % Mean Corpuscular Volume 94 80-99 fL Mean Corpuscular Hemoglobin 30 25-34 pg Mean Corpuscular Hemoglobin Concent 32 32-36 g/dL Red Cell Distribution Width 12.8 10.0-14.5 % Platelet Count 238 130-400 10^3/uL Mean Platelet Volume 10.6 9.0-12.2 fL Immature Granulocyte % (Auto) 0 % Neutrophils (%) (Auto) 75 42-75 % Lymphocytes (%) (Auto) 19 12-44 % Monocytes (%) (Auto) 4 0-12 % Eosinophils (%) (Auto) 1 0-10 % Basophils (%) (Auto) 1 0-10 % Neutrophils # (Auto) 2.9 1.8-7.8 10^3/uL Lymphocytes # (Auto) 0.7 L 1.0-4.0 10^3/uL Monocytes # (Auto) 0.2 0.0-1.0 10^3/uL Eosinophils # (Auto) 0.0 0.0-0.3 10^3/uL Basophils # (Auto) 0.0 0.0-0.1 10^3/uL Immature Granulocyte # (Auto) 0.0 0.0-0.1 10^3/uL D-Dimer 0.53 H 0.00-0.49 UG/ML Sodium Level 137 135-145 MMOL/L Potassium Level 4.2 3.6-5.0 MMOL/L Chloride Level 107 98-107 MMOL/L Carbon Dioxide Level 22 21-32 MMOL/L Anion Gap 8 5-14 MMOL/L Blood Urea Nitrogen 13 7-18 MG/DL Creatinine 0.74 0.60-1.30 MG/DL Estimat Glomerular Filtration Rate 92 BUN/Creatinine Ratio 18 Glucose Level 103 70-105 MG/DL Calcium Level 8.6 8.5-10.1 MG/DL (ZAHEER TONG MD) My Orders Orders - ZAHEER TONG MD Ekg Tracing (07/25/21 10:10) Ed Iv/Invasive Line Start (07/25/21 10:10) Cbc With Automated Diff (07/25/21 10:10) Basic Metabolic Panel (07/25/21 10:10) Chest 1 View, Ap/Pa Only (07/25/21 10:10) Fibrin Degradation Products (07/25/21 10:10) Isolation Central Supply Req (07/25/21 10:10) Lactated Ringers (Lr 1000 Ml Iv Solution (07/25/21 10:30) Ct Angio Chest W (07/25/21 10:46) Iohexol Injection (Omnipaque 350 Mg/Ml 1 (07/25/21 11:45) Received Contrast (Hold Metformin- Contr (07/25/21 11:45) Sodium Chloride Flush (Catheter Flush Sy (07/25/21 11:45) Ns (Ivpb) (Sodium Chloride 0.9% Ivpb Bag (07/25/21 11:45) Orthostatic Vital Signs (Adult (07/25/21 12:37) Lactated Ringers (Lr 1000 Ml Iv Solution (07/25/21 12:45) (ZAHEER TONG MD) Medications Given in ED (ZAHEER TONG MD) Vital Signs/I&O 07/25/21 07/25/21 07/25/21 09:51 12:38 15:10 Temp 37.0 Pulse 122 110 108 112 119 Resp 20 16 B/P (MAP) 124/95 (105) 138/88 (105) 150/84 129/97 (108) 144/98 (113) Pulse Ox 93 97 O2 Delivery Room Air Room Air 07/26/21 00:00 Intake Total 1000 ml Balance 1000 ml (ZAHEER TONG MD) Vital Signs/I&O Capillary Refill : (ADRIENNE MORLEY MED STUDENT) Progress Note #1: Time: 11:13 Progress Note Patient seen and evaluated by me. 60yo otherwise healthy female with Nausea and diarrhea for 1 month. Patient states 20 episodes of diarrhea in the last 24 hours. non black, non bloody. eating and drinking worsen symptoms. recently started a prescription weight loss medications (injectable) 6 weeks ago. subjective fever; mild abdominal pain. no muscle cramps. slight dysuria. no increased frequency. Feels short of breath both at rest and with exertion. No chest pain. Room air sats 88-92% on arrival. HR 120 (sinus tach). History of afib in the past. not cuurently on any other prescribed medications other than otc vitamins. Patient states she has been under an increased amount of stress recently - due to her sister with schizophrenia and recent loss of xfhvsii-ix-ajx. She states she thinks her body reacts to stress with the diarrhea and its a significant contributing factor. I advised her of basic lab study results. slightly elevated ddimer. (sedentary lifestyle, history of afib in the past) in light of risk factors, VS, will CTA chest to r/o PE. Chest xray is unremarkable. She is a non smoker. She is currently getting a liter bolus of LR. Will continue to monitor pending CTA. Progress Note #2: Time: 12:26 Progress Note Imaging (both chest xray and CT) normal - no evidence for PE. VS improving - heart rate 108. Will check orthostatic VS and decide on more fluids or not. Progress Note #3: Time: 13:53 Progress Note FEeling much better. HR down to 102. second liter infusing (she's had about 100-200 in so far. I reassured her about labs and imaging. Advised Immodium for home and close follow up with Dr Kuhn. she verbalizes understanding, all questions are sought and answered. (ZAHEER TONG MD) ECG Initial ECG Impression Date: Jul 25, 2021 Initial ECG Impression Time: 10:17 Initial ECG Rate: 113 Initial ECG Rhythm: S.Tach Initial ECG Intervals: Normal Initial ECG Intervals [place] 157 QRS 88 QTc 490 (slightly prolonged) occ PVC; no ST segment elevation or depression noted (ZAHEER TONG MD) Diagnostic Imaging Diagonstic Imaging: CT Comments [email or web address] [place] NAME: LUIS PALACIO [facility] REC#: [id number] PT STATUS: REG ER : 1960 PHYSICIAN: ZAHEER TONG MD ADMIT DATE: 07/25/21/ER Signed Date of Exam:07/25/21 CT ANGIO CHEST W PROCEDURE: CT angiography Chest TECHNIQUE: After intravenous administration of contrast, thin section axial CT angiography of the chest was performed. 3D MIP reconstructions were made. All CT scans use one or more of the following dose optimizing techniques: automated exposure control, MA and/or KvP adjustment based on a patient size and exam type, or iterative reconstruction. INDICATION: Hypoxia with elevated d-dimer COMPARISON: CT abdomen pelvis from 08/23/2016 FINDINGS: Vasculature: No pulmonary emboli. No CT evidence of pulmonary hypertension or right ventricular strain. Thoracic aorta is normal in caliber. No aortic dissection or pseudoaneurysm. Heart and mediastinum: Visualized thyroid is normal. No supraclavicular, axillary, or intra-thoracic lymphadenopathy. The heart is normal in size without pericardial effusion. Pleura: No pleural effusion or pneumothorax. Lungs and airway: No endoluminal lesion in the trachea or central bronchi. No pneumonia or edema. No suspicious pulmonary nodules. Upper abdomen: Low-attenuation liver is likely due to hepatic steatosis. Musculoskeletal: No concerning osseous lesion. IMPRESSION: 1. No acute cardiopulmonary process. Specifically, no pulmonary emboli or acute aortic syndrome. Dictated by: Dictated on workstation # [id number] Dict: 07/25/21 1157 Trans: 07/25/21 1202 [facility] [id number] Interpreted by: TIMO VENTURA MD Electronically signed by: TIMO VENTURA MD 07/25/21 1202 Diagonstic Imaging: Xray Comments [facility]ALTHCAREHorizontal SystemsDANVERS, [place] NAME: LUIS PALACIO [facility] REC#: [id number] PT STATUS: REG ER : 1960 PHYSICIAN: ZAHEER TONG MD ADMIT DATE: 07/25/21/ER Draft Date of Exam:07/25/21 CHEST 1 VIEW, AP/PA ONLY INDICATION: Shortness of air, hypoxia. TIME OF EXAM: 10:20 AM. COMPARISON: Correlation is made to the prior chest of 01/14/2017. FINDINGS: The heart size is normal. The pulmonary vascularity is unremarkable. The lungs are clear. No infiltrate, effusion, or pneumothorax is detected. Postop changes of the lower cervical spine are noted. IMPRESSION: No acute cardiopulmonary process is detected. Dictated on workstation # [id number] Dict: 07/25/21 1031 Trans: 07/25/21 1033 [id number] Interpreted by: NELLY NOGUEIRA MD Electronically signed by: (ZAHEER TONG MD) Departure Impression Primary Impression: Diarrhea Qualified Codes: R19.7 - Diarrhea, unspecified Additional Impression: Dehydration, moderate Disposition: 01 HOME, SELF-CARE Condition: Improved Departure-Patient Inst. Decision time for Depature: 13:55 (ZAHEER TONG MD) Referrals: RIGO KUHN MD (PCP/Family) Primary Care Physician Patient Instructions: Dehydration, Adult ED Add. Discharge Instructions: Use [id number] Imodium as needed for diarrhea. I would take no more than 3 capsules in a 12 to 24-hour period. Drink plenty of fluids to stay well-hydrated. I have sent an outpatient order form for stool studies with you. You can bring this back to the hospital to further evaluate your diarrhea. Come back to the emergency room for reevaluation if you have any worsening diarrhea especially with bloody stools, fever or abdominal pain. Please call Dr. Kuhn's office for a follow-up visit after you provide a stool sample Verification and Attestation of Medical Student E/M Service A medical student performed and documented this service in my presence. I reviewed and verified all information documented by the medical student and made modifications to such information, when appropriate. I personally performed the physical exam and medical decision making. Zaheer Tong, Jul 25, 2021,13:59 (ZAHEER TONG MD) Copy Copies To 1: RIGO KUHN MD, [employer] STUDENT Jul 25, 2021 10:16 ZAHEER TONG MD Jul 25, 2021 11:16
[2021-07-25 10:20] LABS: BASOPHILS % (AUTO) 1 % (0-10); EOSINOPHILS % (AUTO) 1 % (0-10); HEMATOCRIT 43 % (35-52); HEMOGLOBIN 13.7 g/dL (11.5-16.0); LYMPHOCYTES # (AUTO) 0.7 10^3/uL (1.0-4.0); LYMPHOCYTES % (AUTO) 19 % (12-44); MEAN CORPUSCULAR HEMOGLOBIN 30 pg (25-34); MEAN CORPUSCULAR HGB CONC 32 g/dL (32-36); MEAN CORPUSCULAR VOLUME 94 fL (80-99); MEAN PLATELET VOLUME 10.6 fL (9.0-12.2); MONOCYTES # (AUTO) 0.2 10^3/uL (0.0-1.0); MONOCYTES % (AUTO) 4 % (0-12); NEUTROPHILS # (AUTO) 2.9 10^3/uL (1.8-7.8); NEUTROPHILS % (AUTO) 75 % (42-75); PLATELET COUNT 238 10^3/uL (130-400); WHITE BLOOD COUNT 3.9 10^3/uL (4.3-11.0)
[2021-07-25] MEDS ORDERED: LACTATED RINGERS 1,000 ML IV SCH ×2 (10:30→12:45)
--- NOTE | 2021-07-25 10:33 | Diagnostic Imaging Report ---
INDICATION: Shortness of air, hypoxia. TIME OF EXAM: 10:20 AM. COMPARISON: Correlation is made to the prior chest of 01/14/2017. FINDINGS: The heart size is normal. The pulmonary vascularity is unremarkable. The lungs are clear. No infiltrate, effusion, or pneumothorax is detected. Postop changes of the lower cervical spine are noted. IMPRESSION: No acute cardiopulmonary process is detected. Dictated by: Dictated on workstation # [id number]
[2021-07-25 10:40] LABS: CALCIUM 8.6 MG/DL (8.5-10.1); CREATININE SERUM 0.74 MG/DL (0.60-1.30); POTASSIUM 4.2 MMOL/L (3.6-5.0)
[2021-07-25] MEDS ORDERED: NS 100 ML (IVPB) BAG IV ONE (11:45)
[2021-07-25] MEDS ORDERED: IOHEXOL 350 MG/ML 100 ML (OMNIPAQUE 350) VIAL IV ONE (11:45)
[2021-07-25] MEDS ORDERED: CATHETER FLUSH 10 ML SYR IV PRN (11:45)
[2021-07-25] MEDS ORDERED: HOLD METFORMIN - RECEIVED CONTRAST 20 ML VIAL IV SCH (11:45)
--- NOTE | 2021-07-25 12:03 | Diagnostic Imaging Report ---
PROCEDURE: CT angiography Chest TECHNIQUE: After intravenous administration of contrast, thin section axial CT angiography of the chest was performed. 3D MIP reconstructions were made. All CT scans use one or more of the following dose optimizing techniques: automated exposure control, MA and/or KvP adjustment based on a patient size and exam type, or iterative reconstruction. INDICATION: Hypoxia with elevated d-dimer COMPARISON: CT abdomen pelvis from 08/23/2016 FINDINGS: Vasculature: No pulmonary emboli. No CT evidence of pulmonary hypertension or right ventricular strain. Thoracic aorta is normal in caliber. No aortic dissection or pseudoaneurysm. Heart and mediastinum: Visualized thyroid is normal. No supraclavicular, axillary, or intra-thoracic lymphadenopathy. The heart is normal in size without pericardial effusion. Pleura: No pleural effusion or pneumothorax. Lungs and airway: No endoluminal lesion in the trachea or central bronchi. No pneumonia or edema. No suspicious pulmonary nodules. Upper abdomen: Low-attenuation liver is likely due to hepatic steatosis. Musculoskeletal: No concerning osseous lesion. IMPRESSION: 1. No acute cardiopulmonary process. Specifically, no pulmonary emboli or acute aortic syndrome. Dictated by: Dictated on workstation # [id number]
[2021-07-25 12:38] VITALS: BP_SYST 129; BP_SYST 138; BP_SYST 144; BP_DIAS 88; BP_DIAS 97; BP_DIAS 98
[2021-07-25] MEDS ORDERED: PROMETHAZINE INJ 25 MG/ML (PHENERGAN) AMP IVP ONE (13:45)
[2021-07-25 15:10] VITALS: BP 150/84
== END 2021-07-25 15:20 | disposition home or self-care (01) ==
LOC: EDUNIT# 09:37 → ER 09:39
DX: R19.7 Diarrhea, unspecified (principal); E86.0 Dehydration
CPT/HCPCS: 36415; 71045; 71275; 80048; 85025; 85379; 93005

== ENCOUNTER → 2021-07-27 | Outpatient (CLI) | payer OTHER | LOC: LAB 07:36 | PROVIDERS: ATTEND Emergency Medicine | DX: R19.7 Diarrhea, unspecified (principal) | CPT/HCPCS: 82274; 87015; 87045; 87046; 87324; 87328; 87329; 87449; 87899 ==

== ENCOUNTER → 2022-07-27 | Outpatient (CLI) | payer OTHER ==
[~2022-07-27] MED LIST changes: +ALBU8.5H6 IH; -RT-ALBUINH IH
[2022-07-27 15:52] LABS: BASOPHILS % (AUTO) 1 % (0-10); EOSINOPHILS # (AUTO) 0.1 10^3/uL (0.0-0.3); EOSINOPHILS % (AUTO) 3 % (0-10); HEMATOCRIT 41 % (35-52); HEMOGLOBIN 13.3 g/dL (11.5-16.0); LYMPHOCYTES # (AUTO) 1.8 10^3/uL (1.0-4.0); LYMPHOCYTES % (AUTO) 34 % (12-44); MEAN CORPUSCULAR HEMOGLOBIN 31 pg (25-34); MEAN CORPUSCULAR HGB CONC 33 g/dL (32-36); MEAN CORPUSCULAR VOLUME 94 fL (80-99); MEAN PLATELET VOLUME 10.2 fL (9.0-12.2); MONOCYTES # (AUTO) 0.4 10^3/uL (0.0-1.0); MONOCYTES % (AUTO) 8 % (0-12); NEUTROPHILS # (AUTO) 2.9 10^3/uL (1.8-7.8); NEUTROPHILS % (AUTO) 55 % (42-75); PLATELET COUNT 258 10^3/uL (130-400); WHITE BLOOD COUNT 5.3 10^3/uL (4.3-11.0)
[2022-07-27 15:53] LABS: ALBUMIN 3.8 GM/DL (3.2-4.5)
[2022-07-27 15:59] LABS: CREATININE SERUM 0.8 MG/DL (0.60-1.30)
== END ==
LOC: LAB 15:01
DX: E55.9 Vitamin D deficiency, unspecified (principal); M35.00 Sjogren syndrome, unspecified; M25.50 Pain in unspecified joint; R76.8 Other specified abnormal immunological findings in serum
CPT/HCPCS: 36415; 82040; 82306; 82565; 84460; 85025

== ENCOUNTER 2022-09-07 09:08 | Inpatient (IN) | payer OTHER ==
[~2022-09-07] VITALS: Ht 165 cm; Wt 153.1 kg
[2022-09-07] MEDS ORDERED: RT-ALBUTEROL/IPRATROPIUM 3 ML (DUONEB) VIAL INH ONE (09:30)
[2022-09-07 09:37] LABS: BASOPHILS # (AUTO) 0.1 10^3/uL (0.0-0.1); BASOPHILS % (AUTO) 1 % (0-10); EOSINOPHILS # (AUTO) 0.1 10^3/uL (0.0-0.3); EOSINOPHILS % (AUTO) 2 % (0-10); HEMATOCRIT 42 % (35-52); HEMOGLOBIN 13.4 g/dL (11.5-16.0); LYMPHOCYTES # (AUTO) 2.3 10^3/uL (1.0-4.0); LYMPHOCYTES % (AUTO) 27 % (12-44); MEAN CORPUSCULAR HEMOGLOBIN 31 pg (25-34); MEAN CORPUSCULAR HGB CONC 32 g/dL (32-36); MEAN CORPUSCULAR VOLUME 95 fL (80-99); MEAN PLATELET VOLUME 10.2 fL (9.0-12.2); MONOCYTES # (AUTO) 0.4 10^3/uL (0.0-1.0); MONOCYTES % (AUTO) 5 % (0-12); NEUTROPHILS # (AUTO) 5.5 10^3/uL (1.8-7.8); NEUTROPHILS % (AUTO) 66 % (42-75); PLATELET COUNT 267 10^3/uL (130-400); WHITE BLOOD COUNT 8.4 10^3/uL (4.3-11.0)
--- NOTE | 2022-09-07 09:38 | ED Respiratory ---
General Chief Complaint: Respiratory Problems Stated Complaint: SOB | Nursing Triage Note: PT TO 9 BY WC WITH CC OF SOB SINCE ABOUT 0400. PT ON CPAP AT HOME AND JUST WOKE UP TO GO TO THE RESTROOM AND WAS SOB WHEN WENT BACK TO BED. DR. MÁRQUEZ IN AT TRIAGE Source: patient Exam Limitations: no limitations History of Present Illness Date Seen by Provider: September 07, 2022 Time Seen by Provider: 09:15 Initial Comments Here with report of increased shortness of air that she noted at 4 AM this morning when she got up to go to the bathroom. She does wear CPAP at night and returned to bed and return to her CPAP but remains short of breath. She tried to come to work today and she was quite short of breath. 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 She follows with Dr. Kuhn for primary care. She does not have history of heart failure but does occasionally get some bronchitis. She does note that she has shortness of air and chest tightness without chest pain. Does note swelling of both legs that comes and goes. Denies dysuria or diarrhea. Denies fever or chills. Timing/Duration: constant, getting worse Severity: moderate Prior Episodes/Possible Cause: no prior episodes Associated Symptoms: No cough, No fever/chills, No muscle aches, No nasal congestion; shortness of breath; No wheezing Allergies and Home Medications Allergies Coded Allergies: codeine (Unverified Allergy, Mild, 08/02/09) Patient Home Medication List Home Medication List Reviewed: Yes Ergocalciferol (Vitamin D2) (Vitamin D2) 1,250 Mcg (80363 Unit) Capsule, 1,250 MCG PO SUN, (Reported) Entered as Reported by: RHONDA NICOLAS on 09/07/22 1153 Last Action: Reviewed Hydroxychloroquine Sulfate (Hydroxychloroquine Sulfate) 200 Mg Tablet, 400 MG PO DAILY, (Reported) Entered as Reported by: RHONDA NICOLAS on 09/07/22 115 Last Action: Reviewed Multivitamin (Multivitamins) 1 Each Tablet, 1 TAB PO DAILY, (Reported) Entered as Reported by: KELBY NEGRON on 03/02/16 1602 Last Action: Reviewed [place]-3 Fatty Acids/Fish Oil (Fish Oil 1,200 mg Softgel) 1 Each Capsule, 1,200 MG PO DAILY, (Reported) Entered as Reported by: GUZMAN CHEUNG on 01/14/171307 Last Action: Reviewed Discontinued Medications ALPRAZolam (Xanax Tablet) 0.25 Mg Tablet, 0.25 MG PO HS PRN for INSOMNIA, (Reported) Discontinued Reason: Duplicate Order Entered as Reported by: GUZMAN CHEUNG on 01/14/171307 Last Action: Discontinued Acyclovir (Acyclovir) 800 Mg Tablet, 800 MG PO TID Discontinued Reason: Duplicate Order Prescribed by: RIGO KUHN on 01/15/17905 Last Action: Discontinued Albuterol Sulfate (Ventolin Hfa) 1 Puff Puff, 2 PUFF IH Q4H PRN for SHORTNESS OF BREATH, (Reported) Discontinued Reason: Duplicate Order Entered as Reported by: GUZMAN CHEUNG on 01/14/171307 Last Action: Discontinued Apixaban (Eliquis) 5 Mg Tablet, 5 MG PO BID Discontinued Reason: Duplicate Order Prescribed by: RIGO KUHN on 01/15/17905 Last Action: Discontinued Benzonatate (Benzonatate) 100 Mg Capsule, 200 MG PO TID Discontinued Reason: Duplicate Order Prescribed by: KEZIA EASON on 01/15/171421 Last Action: Discontinued Cephalexin (Keflex) 500 Mg Capsule, 500 MG PO TID Discontinued Reason: Duplicate Order Prescribed by: RIGO KUHN on 01/15/17905 Last Action: Discontinued Cetirizine HCl (Cetirizine HCl) 10 Mg Tablet, 10 MG PO DAILY, (Reported) Discontinued Reason: Duplicate Order Entered as Reported by: GUZMAN CHEUNG on 01/14/171307 Last Action: Discontinued Cholecalciferol (Vitamin D3) (Vitamin D3) 2,000 Unit Capsule, 2,000 UNIT PO DAILY, (Reported) Discontinued Reason: Duplicate Order Entered as Reported by: GUZMAN CHEUNG on 01/14/171307 Last Action: Discontinued Cholestyramine/Aspartame (Prevalite Packet) 4 Gm Powd.pack, 4 GM PO BID Discontinued Reason: Duplicate Order Prescribed by: RIGO KUHN on 01/15/17905 Last Action: Discontinued Ciprofloxacin HCl (Ciprofloxacin HCl) 500 Mg Tablet, 500 MG PO BID Discontinued Reason: Duplicate Order Prescribed by: RIGO KUHN on 01/15/17905 Last Action: Discontinued Diltiazem HCl (Diltiazem 24Hr Cd) 240 Mg Cap.er.24h, 240 MG PO DAILY Discontinued Reason: Duplicate Order Prescribed by: RIGO KUHN on 01/15/17905 Last Action: Discontinued Fluoxetine HCl (Fluoxetine HCl) 40 Mg Capsule, 40 MG PO DAILY, (Reported) Discontinued Reason: Duplicate Order Entered as Reported by: GUZMAN CHEUNG on 01/14/171057 Last Action: Discontinued Lactobacillus Combo No.10 (Probiotic) 1 Each Capsule, 1 EACH PO QID Discontinued Reason: Duplicate Order Prescribed by: RIGO KUHN on 01/15/17905 Last Action: Discontinued Montelukast Sodium (Montelukast Sodium) 10 Mg Tablet, 10 MG PO DAILY, (Reported) Discontinued Reason: Duplicate Order Entered as Reported by: GUZMAN CHEUNG on 01/14/171307 Last Action: Discontinued Naproxen (Naproxen) 500 Mg Tablet, 500 MG PO DAILY PRN for PAIN-MILD, (Reported) Discontinued Reason: Duplicate Order Entered as Reported by: GUZMAN CHEUNG on 01/14/171307 Last Action: Discontinued Ondansetron (Zofran Odt) 4 Mg Tab.rapdis, 4 MG PO Q6H PRN for NAUSEA/VOMITING- 1ST LINE Discontinued Reason: Duplicate Order Prescribed by: KEZIA EASON on 01/15/171421 Last Action: Discontinued Oxybutynin Chloride (Oxybutynin Chloride ER) 10 Mg Tab.er.24, 10 MG PO DAILY, (Reported) Discontinued Reason: Duplicate Order Entered as Reported by: GUZMAN CHEUNG on 01/14/171307 Last Action: Discontinued Pantoprazole Sodium (Pantoprazole Sodium) 20 Mg Tablet.dr, 40 MG PO BID, (Reported) Discontinued Reason: Duplicate Order Entered as Reported by: GUZMAN CHEUNG on 01/14/171057 Last Action: Discontinued Prednisone (Prednisone) 10 Mg Tab, PO UD, (Reported) Discontinued Reason: Duplicate Order Entered as Reported by: GUZMAN CHEUNG on 01/14/171307 Last Action: Discontinued Sucralfate (Carafate) 1 Gm Tablet, 1 GM PO TID PRN for INDIGESTION Discontinued Reason: Duplicate Order Prescribed by: KEZIA EASON on 01/15/171421 Last Action: Discontinued Review of Systems Review of Systems Constitutional: see HPI; No chills, No fever EENTM: see HPI Respiratory: No cough; dyspnea on exertion, short of breath Cardiovascular: see HPI, edema Gastrointestinal: no symptoms reported Musculoskeletal: no symptoms reported Skin: no symptoms reported Past Dwgqygj-Vwsdbl-Wabvzt Hx Patient Social History Tobacco Use?: No Substance use?: No Alcohol Use?: Yes Alcohol Frequency: Once in a while Immunizations Up To Date Tetanus Booster (TDap): Unknown First/Initial COVID19 Vaccinat: 2020 Second COVID19 Vaccination Bjorn: 2020 Third COVID19 Vaccination Date: 2020 Seasonal Allergies Seasonal Allergies: No Past Medical History Surgery/Hospitalization HX: LUPUS, SJORGENS, HX OF NON-HODGKINS LYMPHOMA, HYST, DENNIS, APPE Surgeries: Yes (appy) Appendectomy, Gallbladder, Hysterectomy Respiratory: Yes Sleep Apnea Currently Using CPAP: Yes Cardiac: Yes Atrial Fibrillation Neurological: No 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 Sexually Transmitted Disease: No HIV/AIDS: No Genitourinary: No Gastrointestinal: Yes Gastroesophageal Reflux, Chronic Diarrhea Musculoskeletal: Yes (OSTEO ARTHRITIS) Arthritis, Chronic Back Pain Endocrine: No Hypothyroidsim HEENT: No Loss of Vision: Denies Hearing Impairment: Denies Cancer: Yes Lymphoma, Uterine Did You Recieve Any Treatments: Yes What Type of Treatment Did You: Chemotherapy, Surgical Intervention Psychosocial: Yes (STRESS) Anxiety Integumentary: Yes (occasionally has red spots appear) Blood Disorders: No Adverse Reaction/Blood Tranf: No Family Medical History Colon cancer 19 MOTHER (not sure where primary cancer was located) Diabetes mellitus G8 BROTHER Not obtainable due to adoption 19 FATHER Psychosocial problem G8 SISTER (setziaphrenia) Respiratory disorder G8 SISTER (sleep apnea) Thyroid disease G8 SISTER (goiters) Tuberculosis No Pertinent Family Hx Physical Exam Vital Signs - First Documented 09/07/22 09/07/22 09:08 09:10 Temp 36.6 Pulse 111 Resp 24 B/P (MAP) 190/118 (142) Pulse Ox 93 O2 Delivery Nasal Cannula O2 Flow Rate 2.00 Capillary Refill : Less Than 3 Seconds Height: 5'4.00" Weight: 292lbs. 5.0oz. 132.870006ob; 51.00 BMI Method:Stated General Appearance: WD/WN, mild distress, obese HEENT: PERRL/EOMI, pharynx normal Neck: full range of motion, supple Respiratory: crackles (Bilateral bases); No wheezing Cardiovascular: no murmur, tachycardia Gastrointestinal: non tender, soft Extremities: non-tender, normal inspection, pedal edema (2+ edema bilateral lower extremities that is pitting up to level just below knee bilateral) Neurologic/Psychiatric: alert, oriented x 3 Skin: normal color, warm/dry Progress/Results/Core Measures Suspected Sepsis SIRS Temperature: Pulse: 111 Respiratory Rate: 24 Laboratory Tests 09/07/22 09:20: White Blood Count 8.4 Blood Pressure 190 /118 Mean: 142 Laboratory Tests 09/07/22 09:20: Creatinine 0.84, Platelet Count 267, Total Bilirubin 0.4 Results/Orders Lab Results Laboratory Tests Test 09/07/22 09:20 Range/Units White Blood Count 8.4 4.3-11.0 10^3/uL Red Blood Count 4.38 3.80-5.11 10^6/uL Hemoglobin 13.4 11.5-16.0 g/dL Hematocrit 42 35-52 % Mean Corpuscular Volume 95 80-99 fL Mean Corpuscular Hemoglobin 31 25-34 pg Mean Corpuscular Hemoglobin Concent 32 32-36 g/dL Red Cell Distribution Width 12.8 10.0-14.5 % Platelet Count 267 130-400 10^3/uL Mean Platelet Volume 10.2 9.0-12.2 fL Immature Granulocyte % (Auto) 0 % Neutrophils (%) (Auto) 66 42-75 % Lymphocytes (%) (Auto) 27 12-44 % Monocytes (%) (Auto) 5 0-12 % Eosinophils (%) (Auto) 2 0-10 % Basophils (%) (Auto) 1 0-10 % Neutrophils # (Auto) 5.5 1.8-7.8 10^3/uL Lymphocytes # (Auto) 2.3 1.0-4.0 10^3/uL Monocytes # (Auto) 0.4 0.0-1.0 10^3/uL Eosinophils # (Auto) 0.1 0.0-0.3 10^3/uL Basophils # (Auto) 0.1 0.0-0.1 10^3/uL Immature Granulocyte # (Auto) 0.0 0.0-0.1 10^3/uL Sodium Level 142 135-145 MMOL/L Potassium Level 4.0 3.6-5.0 MMOL/L Chloride Level 109 H 98-107 MMOL/L Carbon Dioxide Level 22 21-32 MMOL/L Anion Gap 11 5-14 MMOL/L Blood Urea Nitrogen 13 7-18 MG/DL Creatinine 0.84 0.60-1.30 MG/DL Estimat Glomerular Filtration Rate 78 BUN/Creatinine Ratio 15 Glucose Level 97 70-105 MG/DL Calcium Level 9.3 8.5-10.1 MG/DL Corrected Calcium 9.4 8.5-10.1 MG/DL Total Bilirubin 0.4 0.1-1.0 MG/DL Aspartate Amino Transf (AST/SGOT) 12 5-34 U/L Alanine Aminotransferase (ALT/SGPT) 16 0-55 U/L Alkaline Phosphatase 25 L 40-136 U/L Troponin I < 0.028 <0.028 NG/ML C-Reactive Protein High Sensitivity 0.79 H 0.00-0.50 MG/DL B-Type Natriuretic Peptide 166.3 H <100.0 PG/ML Total Protein 7.5 6.4-8.2 GM/DL Albumin 3.9 3.2-4.5 GM/DL TSH Dows Testing 3.57 0.35-4.94 UIU/ML My Orders Orders - ORACIO MÁRQUEZ MD Ed Iv/Invasive Line Start (09/07/22:) Ekg Tracing (09/07/22:) O2 (09/07/22:) Monitor-Rhythm Ecg Trace Only (09/07/22:) Chest 1 View, Ap/Pa Only (09/07/22:) Bnp Faith (09/07/22:) Cbc With Automated Diff (09/07/22:) Comprehensive Metabolic Panel (09/07/22:) Hs C Reactive Protein (09/07/22:) Thyroid Analyzer (09/07/22:) Troponin I [place] (09/07/22:) Albuterol/Ipra Inhalation Soln (Duoneb I (09/07/22 09:30) Svn Small Volume Nebulizer (09/07/22:) Furosemide Injection (Lasix Injection) (09/07/22 09:52) Code/Resuscitation (09/07/22 10:23) Ct Angio Chest W (R/O Pe) (09/07/22 10:28) Ns Iv 500 Ml (Sodium Chloride 0.9%) (09/07/22 10:30) Iohexol Injection (Omnipaque 350 Mg/Ml 1 (09/07/22 10:45) Di Iv Start (Assessment) .IV start (09/07/22 10:41) Received Contrast (Hold Metformin- Contr (09/07/22 10:45) Ns (Ivpb) (Sodium Chloride 0.9% Ivpb Bag (09/07/22 10:45) Medications Given in ED Current Medications Medications Dose Ordered Sig/Ngoc Route Start Time Stop Time Status Last Admin Dose Admin Albuterol/ Ipratropium 3 ml ONCE ONCE INH 09/07/22 09:30 09/07/22 09:31 DC 09/07/22 09:31 3 ML Iohexol 100 ml ONCE ONCE IV 09/07/22 10:45 09/07/22 10:46 DC 09/07/22 10:55 88 ML Sodium Chloride 100 ml ONCE ONCE IV 09/07/22 10:45 09/07/22 10:46 DC 09/07/22 10:55 70 ML Sodium Chloride 500 ml @ 0 mls/hr Q0M ONCE IV 09/07/22 10:30 09/07/22 10:31 DC 09/07/22 11:03 1,000 MLS/HR Vital Signs/I&O 09/07/22 09/07/22 09/07/22 09/07/22 09:08 09:08 09:10 11:23 Temp 36.6 36.4 Pulse 111 98 Resp 24 24 B/P (MAP) 190/118 (142) 142/75 Pulse Ox 93 95 98 O2 Delivery Nasal Cannula Nasal Cannula Nasal Cannula Nasal Cannula O2 Flow Rate 2.00 2.00 2.00 2.00 Capillary Refill : Less Than 3 Seconds Blood Pressure Mean: 142 Progress Note : Progress Note Seen and evaluated. IV, labs including CBC, CMP, troponin and BNP ordered. Chest x-ray and EKG ordered. Patient on O2 at 2 L and feels more comfortable with O2 saturation at 93 to 94%. We will get a DuoNeb x1 to see if that helps with breathing. Monitor patient. Differential diagnosis includes heart failure, bronchitis, cardiac event 0950: Chest x-ray complete and does show findings of heart failure with vascular congestion and cardiomegaly on my interpretation. CBC is grossly normal. Chemistries pending. 1007: Troponin negative, BNP is elevated. Chemistries otherwise grossly normal. Patient will require admission for new onset heart failure requiring oxygen. She states she is a little better after DuoNeb but still short of breath with activity. I have paged Dr. Kuhn, patient's primary care physician and am awaiting callback. 1020: I did discuss the case with Dr. Kuhn and she has excepted patient for admission, inpatient status. 1025: I did discuss the case with cardiology on-call, Dr. Cintron. After discussion with history of previous A-fib, we will go ahead and get CT angiogram of the chest. Normal saline 500 mL bolus ordered. He will see her in consult. I have ordered Lasix 40 mg IV as well. Monitor patient. 04/30/2007: I have reviewed CT angiogram of the chest and do not see obvious pulmonary embolism on my interpretation. Pending radiology report. ECG Initial ECG Impression Date: September 07, 2022 Initial ECG Impression Time: 09:28 Initial ECG Rate: 108 Initial ECG Rhythm: S.Tach Comment Sinus tachycardia with left atrial abnormality. Normal axis. No evidence of ST elevation CA. Interpreted by me. Diagnostic Imaging Diagonstic Imaging: Xray Plain Films/CT/US/NM/MRI: chest Comments [facility]. [place], [place] NAME: LUIS PALACIO [facility] REC#: [id number] PT STATUS: REG ER : 1960 PHYSICIAN: ORACIO MÁRQUEZ MD ADMIT DATE: 09/07/22/ER Draft Date of Exam:09/07/22 CHEST 1 VIEW, AP/PA ONLY CLINICAL INDICATIONS: Patient is short of breath since about 0400 hours. Patient on CPAP at home and just woke up to go to the restroom and short of breath and went back to bed. EXAM: Portable chest x-ray upright view. COMPARISON: Chest x-ray dated 07/25/2021. FINDINGS: There is interval progression of cardiomegaly and pulmonary vascular congestion. There is interval development of patchy infiltrates involving both midlung diop and both lung bases with right-sided more than left. There is concern for a small right pleural effusion. There is no pneumothorax. There are degenerative spurs involving the thoracic spine. IMPRESSION: 1: There is interval development of cardiomegaly and pulmonary vascular congestion which can be seen with congestive heart failure. 2: There is interval development of patchy lung infiltrates involving both lower lung diop suspected to be related to pulmonary congestion/edema. Clinical correlation would better evaluate if there is concern for pneumonia. Dictated on workstation # [id number] Dict: 09/07/22 0943 Trans: 09/07/22 0947 CVB Interpreted by: ANANT GALLAGHER MD Electronically signed by: Reviewed: Reviewed by Me Diagonstic Imaging: CT Plain Films/CT/US/NM/MRI: chest Comments [facility] [place], [place] NAME: LUIS PALACIO [facility] REC#: [id number] PT STATUS: REG ER : 1960 PHYSICIAN: ORACIO MÁRQUEZ MD ADMIT DATE: 09/07/22/ER Draft Date of Exam:09/07/22 CT ANGIO CHEST W (R/O PE) INDICATION: Shortness of air, wheezing and chest tightness. Comparison is made with prior CT from 07/25/2021. Evaluation of the pulmonary arterial system is without evidence of thromboembolism. No definite filling defects are seen within central, lobar or segmental branches. The thoracic aorta is normal caliber. No dissection is identified. No pericardial fluid is detected. There are very small bilateral pleural effusions. Parenchymal evaluation does demonstrate interlobular septal thickening, perhaps on the basis of congestive failure. There is some atelectasis or infiltrate in the lower lung diop bilaterally as well. Upper abdomen is unremarkable. IMPRESSION: 1. No evidence of pulmonary embolism or acute aortic disease. 2. Trace bilateral pleural effusion. 3. Findings suggestive of congestive failure. Dictated on workstation # [id number] Dict: 09/07/22 1105 Trans: 09/07/22 1113 CVB Interpreted by: NELLY NOGUEIRA MD Electronically signed by: Departure Communication (Admissions) Time/Spoke to Admitting Phy: 10:09 Impression Primary Impression: New onset of congestive heart failure Additional Impression: Hypoxia Disposition: ADMITTED INPATIENT Condition: Stable Admissions Decision to Admit Reason: Admit from ER (General) Decision to Admit/Date: September 07, 2022 Time/Decision to Admit Time: 10:09 Departure-Patient Inst. Referrals: RIGO KUHN MD (PCP/Family) Primary Care Physician ORACIO MÁRQUEZ MD September 07, 2022 09:38
[2022-09-07 09:43] LABS: ALBUMIN 3.9 GM/DL (3.2-4.5)
[2022-09-07 09:44] LABS: CHLORIDE 109 MMOL/L (98-107); SODIUM 142 MMOL/L (135-145)
[2022-09-07 09:45] LABS: CALCIUM 9.3 MG/DL (8.5-10.1)
[2022-09-07 09:46] LABS: GLUCOSE 97 MG/DL (70-105); TOTAL PROTEIN 7.5 GM/DL (6.4-8.2)
[2022-09-07 09:47] LABS: CARBON DIOXIDE 22 MMOL/L (21-32)
--- NOTE | 2022-09-07 09:47 | Diagnostic Imaging Report ---
CLINICAL INDICATIONS: Patient is short of breath since about 0400 hours. Patient on CPAP at home and just woke up to go to the restroom and short of breath and went back to bed. EXAM: Portable chest x-ray upright view. COMPARISON: Chest x-ray dated 07/25/2021. FINDINGS: There is interval progression of cardiomegaly and pulmonary vascular congestion. There is interval development of patchy infiltrates involving both midlung diop and both lung bases with right-sided more than left. There is concern for a small right pleural effusion. There is no pneumothorax. There are degenerative spurs involving the thoracic spine. IMPRESSION: 1: There is interval development of cardiomegaly and pulmonary vascular congestion which can be seen with congestive heart failure. 2: There is interval development of patchy lung infiltrates involving both lower lung diop suspected to be related to pulmonary congestion/edema. Clinical correlation would better evaluate if there is concern for pneumonia. Dictated by: Dictated on workstation # [id number]
[2022-09-07 09:48] LABS: BILIRUBIN,TOTAL 0.4 MG/DL (0.1-1.0)
[2022-09-07 09:50] LABS: ALKALINE PHOSPHATASE 25 U/L (40-136); CREATININE SERUM 0.84 MG/DL (0.60-1.30); GFR ESTIMATED 78
[2022-09-07 09:51] LABS: BUN/CREATININE RATIO 15
[2022-09-07] MEDS ORDERED: FUROSEMIDE 40 MG/4 ML INJ (LASIX) IV STA (09:52)
[2022-09-07 09:53] LABS: ALANINE AMINOTRANSFERASE 16 U/L (0-55)
[2022-09-07 10:12] LABS: TSH (THYROID ANALYZER) 3.57 UIU/ML (0.35-4.94)
[2022-09-07] MEDS ORDERED: NS IV 500 ML 500 ML IV ONE (10:30)
[2022-09-07] MEDS ORDERED: NS 100 ML (IVPB) BAG IV ONE (10:45)
[2022-09-07] MEDS ORDERED: IOHEXOL 350 MG/ML 100 ML (OMNIPAQUE 350) VIAL IV ONE (10:45)
[2022-09-07] MEDS ORDERED: HOLD METFORMIN - RECEIVED CONTRAST 20 ML VIAL IV SCH (10:45)
--- NOTE | 2022-09-07 11:14 | Diagnostic Imaging Report ---
INDICATION: Shortness of air, wheezing and chest tightness. Comparison is made with prior CT from 07/25/2021. Evaluation of the pulmonary arterial system is without evidence of thromboembolism. No definite filling defects are seen within central, lobar or segmental branches. The thoracic aorta is normal caliber. No dissection is identified. No pericardial fluid is detected. There are very small bilateral pleural effusions. Parenchymal evaluation does demonstrate interlobular septal thickening, perhaps on the basis of congestive failure. There is some atelectasis or infiltrate in the lower lung diop bilaterally as well. Upper abdomen is unremarkable. IMPRESSION: 1. No evidence of pulmonary embolism or acute aortic disease. 2. Trace bilateral pleural effusion. 3. Findings suggestive of congestive failure. Dictated by: Dictated on workstation # [id number]
[2022-09-07] MEDS ORDERED: HYDR200T46 PO (11:53)
[2022-09-07] MEDS ORDERED: ERGO1250 PO (11:53)
[2022-09-07 12:00] VITALS: BP 138/90
[2022-09-07] MEDS ORDERED: CATHETER FLUSH 10 ML SYR IV PRN (12:15)
[2022-09-07] MEDS ORDERED: ONDANSETRON 4 MG/2 ML (SDV) Z0FRAN IVP PRN (12:15)
--- NOTE | 2022-09-07 14:12 | Consultation-Cardiology ---
HPI-Cardiology Cardiology Consultation: Date of Consultation 09/07/22 Date of Admission Attending Physician Rigo Kuhn MD Admitting Physician Admitting Physician: Rigo Kuhn MD Attending Physician: Rigo Kuhn MD Consulting Physician Chirag DUMONT MD HPI: Time Seen by a Provider: 13:30 Chief Complaint: Shortness of breath This is a 62-year-old lady who has previous history of autoimmune disorder, lupus, Sjogren's, on prolonged steroids previously. Currently on hydroxychloroquine. No known cardiac or pulmonary disease. 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 Associated with wheezing and chest tightness. Improved with neb treatment in the ER as well as IV Lasix. Patient denies active smoking. According to the patient previously she has had paroxysmal atrial fibrillation but denied having it afterwards. Mild weight gain with possible lower extremity swelling. Review of Systems-Cardiology Review of Systems Constitutional: No lightheadedness Eyes: No blindness Ears/Nose/Throat: No no symptoms reported Respiratory: As described under HPI, shortness of breath, wheezing Cardiovascular: other (Chest tightness) Gastrointestinal: no symptoms reported Genitourinary: no symptoms reported Musculoskeletal: no symptoms reported Skin: no symptoms reported Psychiatric/Neurological: no symptoms reported Hematologic: no symptoms reported FHV-[id number]-Lmxzdp Hx Patient Social History Smoking Status: Never a Smoker Have you traveled recently?: No Alcohol Use?: No Substance type: Caffeine Pt feels they are or have been: No Immunizations Up To Date Tetanus Booster (TDap): Unknown Date of Pneumonia Vaccine: Nov 02, 2009 Date of Influenza Vaccine: Jan 31, 2016 Past Medical History PMH As described under Assessment. Family Medical History Family History: Colon cancer 19 MOTHER (not sure where primary cancer was located) Diabetes mellitus G8 BROTHER Not obtainable due to adoption 19 FATHER Psychosocial problem G8 SISTER (setziaphrenia) Respiratory disorder G8 SISTER (sleep apnea) Thyroid disease G8 SISTER (goiters) Tuberculosis Allergies and Home Medications Allergies Coded Allergies: codeine (Unverified Allergy, Mild, 08/02/09) Patient Home Medication List Home Medication List Reviewed: Yes ALPRAZolam (Xanax Tablet) 0.25 Mg Tablet, 0.25 MG PO HS PRN for INSOMNIA, (Reported) Entered as Reported by: GUZAMN CHEUNG on 01/14/17 1308 Acyclovir (Acyclovir) 800 Mg Tablet, 800 MG PO TID Prescribed by: RIGO KUHN on 01/15/17 09 Albuterol Sulfate (Ventolin Hfa) 1 Puff Puff, 2 PUFF IH Q4H PRN for SHORTNESS OF BREATH, (Reported) Entered as Reported by: GUZMAN CHEUNG on 01/14/17 1308 Apixaban (Eliquis) 5 Mg Tablet, 5 MG PO BID Prescribed by: RIGO KUHN on 01/15/17 09 Benzonatate (Benzonatate) 100 Mg Capsule, 200 MG PO TID Prescribed by: KEZIA EASON on 01/15/17 1422 Cephalexin (Keflex) 500 Mg Capsule, 500 MG PO TID Prescribed by: RIGO KUHN on 01/15/17 09 Cetirizine HCl (Cetirizine HCl) 10 Mg Tablet, 10 MG PO DAILY, (Reported) Entered as Reported by: GUZMAN CHEUNG on 01/14/17 1308 Cholecalciferol (Vitamin D3) (Vitamin D3) 2,000 Unit Capsule, 2,000 UNIT PO DAILY, (Reported) Entered as Reported by: GUZMAN CHEUNG on 01/14/17 1308 Cholestyramine/Aspartame (Prevalite Packet) 4 Gm Powd.pack, 4 GM PO BID Prescribed by: RIGO KUHN on 01/15/17 09 Ciprofloxacin HCl (Ciprofloxacin HCl) 500 Mg Tablet, 500 MG PO BID Prescribed by: RIGO KUHN on 01/15/17 09 Diltiazem HCl (Diltiazem 24Hr Cd) 240 Mg Cap.er.24h, 240 MG PO DAILY Prescribed by: RIGO KUHN on 01/15/17 09 Ergocalciferol (Vitamin D2) (Vitamin D2) 1,250 Mcg (32334 Unit) Capsule, 1,250 MCG PO UD, (Reported) Entered as Reported by: RHONDA NICOLAS on 09/07/221152 Last Action: New Order Fluoxetine HCl (Fluoxetine HCl) 40 Mg Capsule, 40 MG PO DAILY, (Reported) Entered as Reported by: GUZMAN CHEUNG on 01/14/17 1058 Hydroxychloroquine Sulfate (Hydroxychloroquine Sulfate) 200 Mg Tablet, 400 MG PO DAILY, (Reported) Entered as Reported by: RHONDA NICOLAS on 5/11/23 1153 Last Action: New Order Lactobacillus Combo No.10 (Probiotic) 1 Each Capsule, 1 EACH PO QID Prescribed by: RIGO KUHN on 01/15/17 0906 Montelukast Sodium (Montelukast Sodium) 10 Mg Tablet, 10 MG PO DAILY, (Reported) Entered as Reported by: GUZMAN CHEUNG on 01/14/17 1308 Multivitamin (Multivitamins) 1 Each Tablet, 1 TAB PO DAILY, (Reported) Entered as Reported by: KELBY NEGRON on 03/02/16 1602 Naproxen (Naproxen) 500 Mg Tablet, 500 MG PO DAILY PRN for PAIN-MILD, (Reported) Entered as Reported by: GUZMAN CHEUNG on 01/14/17 1308 [place]-3 Fatty Acids/Fish Oil (Fish Oil 1,200 mg Softgel) 1 Each Capsule, 1,200 MG PO DAILY, (Reported) Entered as Reported by: GUZMAN CHEUNG on 01/14/17 1308 Ondansetron (Zofran Odt) 4 Mg Tab.rapdis, 4 MG PO Q6H PRN for NAUSEA/VOMITING- 1ST LINE Prescribed by: KEZIA EASON on 01/15/17 1422 Oxybutynin Chloride (Oxybutynin Chloride ER) 10 Mg Tab.er.24, 10 MG PO DAILY, (Reported) Entered as Reported by: GUZMAN CHEUNG on 01/14/17 1308 Pantoprazole Sodium (Pantoprazole Sodium) 20 Mg Tablet.dr, 40 MG PO BID, (Reported) Entered as Reported by: GUZMAN CHEUNG on 01/14/17 1058 Prednisone (Prednisone) 10 Mg Tab, PO UD, (Reported) Entered as Reported by: GUZMAN CHEUNG on 01/14/17 1308 Sucralfate (Carafate) 1 Gm Tablet, 1 GM PO TID PRN for INDIGESTION Prescribed by: KEZIA EASON on 01/15/17 1422 Exam Vital Signs Vital Signs Date Time Temp Pulse Resp B/P (MAP) Pulse Ox O2 Delivery O2 Flow Rate FiO2 09/07/22 12:51 104 09/07/22 12:00 36.7 20 138/90 (106) 92 Room Air 09/07/22 11:23 2.00 2.00 Physical Exam chest exam does not show any wheezing. Good air entry Cardiac: Sinus tachycardia, regular rate. No murmur heard. Mild peripheral edema Labs Laboratory Tests Test 09/07/22 09:20 Range/Units White Blood Count 8.4 4.3-11.0 10^3/uL Red Blood Count 4.38 3.80-5.11 10^6/uL Hemoglobin 13.4 11.5-16.0 g/dL Hematocrit 42 35-52 % Mean Corpuscular Volume 95 80-99 fL Mean Corpuscular Hemoglobin 31 25-34 pg Mean Corpuscular Hemoglobin Concent 32 32-36 g/dL Red Cell Distribution Width 12.8 10.0-14.5 % Platelet Count 267 130-400 10^3/uL Mean Platelet Volume 10.2 9.0-12.2 fL Immature Granulocyte % (Auto) 0 % Neutrophils (%) (Auto) 66 42-75 % Lymphocytes (%) (Auto) 27 12-44 % Monocytes (%) (Auto) 5 0-12 % Eosinophils (%) (Auto) 2 0-10 % Basophils (%) (Auto) 1 0-10 % Neutrophils # (Auto) 5.5 1.8-7.8 10^3/uL Lymphocytes # (Auto) 2.3 1.0-4.0 10^3/uL Monocytes # (Auto) 0.4 0.0-1.0 10^3/uL Eosinophils # (Auto) 0.1 0.0-0.3 10^3/uL Basophils # (Auto) 0.1 0.0-0.1 10^3/uL Immature Granulocyte # (Auto) 0.0 0.0-0.1 10^3/uL Sodium Level 142 135-145 MMOL/L Potassium Level 4.0 3.6-5.0 MMOL/L Chloride Level 109 H 98-107 MMOL/L Carbon Dioxide Level 22 21-32 MMOL/L Anion Gap 11 5-14 MMOL/L Blood Urea Nitrogen 13 7-18 MG/DL Creatinine 0.84 0.60-1.30 MG/DL Estimat Glomerular Filtration Rate 78 BUN/Creatinine Ratio 15 Glucose Level 97 70-105 MG/DL Calcium Level 9.3 8.5-10.1 MG/DL Corrected Calcium 9.4 8.5-10.1 MG/DL Total Bilirubin 0.4 0.1-1.0 MG/DL Aspartate Amino Transf (AST/SGOT) 12 5-34 U/L Alanine Aminotransferase (ALT/SGPT) 16 0-55 U/L Alkaline Phosphatase 25 L 40-136 U/L Troponin I < 0.028 <0.028 NG/ML C-Reactive Protein High Sensitivity 0.79 H 0.00-0.50 MG/DL B-Type Natriuretic Peptide 166.3 H <100.0 PG/ML Total Protein 7.5 6.4-8.2 GM/DL Albumin 3.9 3.2-4.5 GM/DL TSH [place] Testing 3.57 0.35-4.94 UIU/ML ECG Impression ECG Initial ECG Rhythm: S.Tach Initial ECG Intervals: Normal Initial ECG Impression: Nonspecific Changes Diagnosis/Problems Diagnosis/Problems (1) Lupus (systemic lupus erythematosus) Status: Chronic (2) Essential hypertension Status: Acute (3) Chest pain at rest Status: Acute (4) Acute diastolic (congestive) heart failure Status: Acute A/P-Cardiology Assessment/Admission Diagnosis Acute diastolic congestive heart failure, Acute respiratory failure, Essential hypertension, Chest pain at rest, Lupus/Sjogren's syndrome Prolonged prednisone use. Plan CT chest negative. Chest x-ray shows bilateral congestion. BNP elevated. Echocardiogram shows normal LV function with mild diastolic dysfunction. Acute diastolic congestive heart failure. Improved with IV Lasix. Unclear etiology. Patient also had chest tightness at rest. Will check serial troponin. Coronary angiography is recommended. Acute respiratory failure, likely secondary to acute diastolic congestive heart failure. Chest tightness on rest, coronary angiography recommended. Informed consent taken. 1% risk of complication including a very small risk of was explained to the patient. Patient will think about it and discuss with her family and let us know. If she agrees, n.p.o. after midnight. We will schedule in the morning. Lupus/Sjogren, prolonged prednisone use. Will defer to Dr. KUHN. Patient is on hydroxychloroquine. Essential hypertension, recommend amlodipine. Chirag DUMONT MD September 07, 2022 14:12
[2022-09-07] MEDS ORDERED: amLODIPine 2.5MG (NORVASC) TAB PO SCH (14:15)
[2022-09-07 16:00] VITALS: BP 120/70
[2022-09-07] MEDS: CATHETER FLUSH 10 ML SYR IV SCH ×2 (16:40→20:57)
[2022-09-07] MEDS: FUROSEMIDE 40 MG/4 ML INJ (LASIX) IVP SCH (17:10)
[2022-09-07] MEDS ORDERED: ALPR0.5T PO (17:20)
--- NOTE | 2022-09-07 18:32 | History & Physical ---
History of Present Illness History of Present Illness Reason for visit/HPI Pt is a 62 y/o female who is known to me from clinic. She presented to the ER after having acute onset of shortness of breath after awakening last night to go to the restroom. She reports that she tried to lay back down, got acutely short of breath, then tried deep breathing, felt slightly better, laid down, acutely short of breath again and went to the living room. She was extremely short of breath with ambulation and eventually woke up her dtr and told her that she was not doing well and needed to go to the ER. She admits to eating more salty food a few times this week - she usually eats at home without excessive salt intake. She has been on hydroxychloroquine for the past 2 months and has been feeling much better on the medication. She stopped prednisone on Sunday of this past week. Date of Admission September 07, 2022 at 11:34 Date Seen by a Provider: September 07, 2022 Time Seen by a Provider: 18:00 Attending Physician Rigo Kuhn MD Admitting Physician Admitting Physician: Rigo Kuhn MD Attending Physician: Rigo Kuhn MD Consult Air Traffic Control Operator - Dr. Cintron Allergies and Home Medications Allergies Coded Allergies: codeine (Unverified Allergy, Mild, 08/02/09) Patient Home Medication List Home Medication List Reviewed: Yes Alprazolam (Xanax) 0.5 Mg Tablet, 0.5 MG PO PRN, (Reported) Entered as Reported by: LOEN GRADY on 09/07/22 1720 Last Action: Continued Ergocalciferol (Vitamin D2) (Vitamin D2) 1,250 Mcg (54611 Unit) Capsule, 1,250 MCG PO SUN, (Reported) Entered as Reported by: RHONDA NICOLAS on 09/07/22 1153 Last Action: Held Multivitamin (Multivitamins) 1 Each Tablet, 1 TAB PO DAILY, (Reported) Entered as Reported by: KELBY NEGRON on 03/02/16 1602 Last Action: Held [place]-3 Fatty Acids/Fish Oil (Fish Oil 1,200 mg Softgel) 1 Each Capsule, 1,200 MG PO DAILY, (Reported) Entered as Reported by: GUZMAN CHEUNG on 01/14/17 1308 Last Action: Held Discontinued Medications ALPRAZolam (Xanax Tablet) 0.25 Mg Tablet, 0.25 MG PO HS PRN for INSOMNIA, (Reported) Discontinued Reason: Duplicate Order Entered as Reported by: GUZMAN CHEUNG on 01/14/171307 Last Action: Discontinued Acyclovir (Acyclovir) 800 Mg Tablet, 800 MG PO TID Discontinued Reason: Duplicate Order Prescribed by: RIGO KUHN on 01/15/17905 Last Action: Discontinued Albuterol Sulfate (Ventolin Hfa) 1 Puff Puff, 2 PUFF IH Q4H PRN for SHORTNESS OF BREATH, (Reported) Discontinued Reason: Duplicate Order Entered as Reported by: GUZMAN CHEUNG on 01/14/171307 Last Action: Discontinued Apixaban (Eliquis) 5 Mg Tablet, 5 MG PO BID Discontinued Reason: Duplicate Order Prescribed by: RIGO KUHN on 01/15/17905 Last Action: Discontinued Benzonatate (Benzonatate) 100 Mg Capsule, 200 MG PO TID Discontinued Reason: Duplicate Order Prescribed by: KEZIA EASON on 01/15/171421 Last Action: Discontinued Cephalexin (Keflex) 500 Mg Capsule, 500 MG PO TID Discontinued Reason: Duplicate Order Prescribed by: RIGO KUHN on 01/15/17905 Last Action: Discontinued Cetirizine HCl (Cetirizine HCl) 10 Mg Tablet, 10 MG PO DAILY, (Reported) Discontinued Reason: Duplicate Order Entered as Reported by: GUZMAN CHEUNG on 01/14/171307 Last Action: Discontinued Cholecalciferol (Vitamin D3) (Vitamin D3) 2,000 Unit Capsule, 2,000 UNIT PO DAILY, (Reported) Discontinued Reason: Duplicate Order Entered as Reported by: GUZMAN CHEUNG on 01/14/171307 Last Action: Discontinued Cholestyramine/Aspartame (Prevalite Packet) 4 Gm Powd.pack, 4 GM PO BID Discontinued Reason: Duplicate Order Prescribed by: RIGO KUHN on 01/15/17905 Last Action: Discontinued Ciprofloxacin HCl (Ciprofloxacin HCl) 500 Mg Tablet, 500 MG PO BID Discontinued Reason: Duplicate Order Prescribed by: RIGO KUHN on 01/15/17905 Last Action: Discontinued Diltiazem HCl (Diltiazem 24Hr Cd) 240 Mg Cap.er.24h, 240 MG PO DAILY Discontinued Reason: Duplicate Order Prescribed by: RIGO KUHN on 01/15/17905 Last Action: Discontinued Fluoxetine HCl (Fluoxetine HCl) 40 Mg Capsule, 40 MG PO DAILY, (Reported) Discontinued Reason: Duplicate Order Entered as Reported by: GUZMAN CHEUNG on 01/14/171057 Last Action: Discontinued Hydroxychloroquine Sulfate (Hydroxychloroquine Sulfate) 200 Mg Tablet, 400 MG PO DAILY, (Reported) Entered as Reported by: RHONDA NICOLAS on 09/07/22 115 Last Action: Discontinued Lactobacillus Combo No.10 (Probiotic) 1 Each Capsule, 1 EACH PO QID Discontinued Reason: Duplicate Order Prescribed by: RIGO KUHN on 01/15/17905 Last Action: Discontinued Montelukast Sodium (Montelukast Sodium) 10 Mg Tablet, 10 MG PO DAILY, (Reported) Discontinued Reason: Duplicate Order Entered as Reported by: GUZMAN CHEUNG on 01/14/171307 Last Action: Discontinued Naproxen (Naproxen) 500 Mg Tablet, 500 MG PO DAILY PRN for PAIN-MILD, (Reported) Discontinued Reason: Duplicate Order Entered as Reported by: GUZMAN CHEUNG on 01/14/171307 Last Action: Discontinued Ondansetron (Zofran Odt) 4 Mg Tab.rapdis, 4 MG PO Q6H PRN for NAUSEA/VOMITING- 1ST LINE Discontinued Reason: Duplicate Order Prescribed by: KEZIA EASON on 01/15/171421 Last Action: Discontinued Oxybutynin Chloride (Oxybutynin Chloride ER) 10 Mg Tab.er.24, 10 MG PO DAILY, (Reported) Discontinued Reason: Duplicate Order Entered as Reported by: GUZMAN CHEUNG on 01/14/171307 Last Action: Discontinued Pantoprazole Sodium (Pantoprazole Sodium) 20 Mg Tablet.dr, 40 MG PO BID, (Reported) Discontinued Reason: Duplicate Order Entered as Reported by: GUZMAN CHEUNG on 01/14/171057 Last Action: Discontinued Prednisone (Prednisone) 10 Mg Tab, PO UD, (Reported) Discontinued Reason: Duplicate Order Entered as Reported by: GUZMAN CHEUNG on 01/14/171307 Last Action: Discontinued Sucralfate (Carafate) 1 Gm Tablet, 1 GM PO TID PRN for INDIGESTION Discontinued Reason: Duplicate Order Prescribed by: KEZIA EASON on 9/18/17 1422 Last Action: Discontinued Past Xztrssz-Zfogev-Xuapgl Hx Patient Social History Marrital Status: single Living Status: currently living with her dtr Employed/Student: employed Tobacco Use?: No Smoking Status: Never a Smoker Use of E-Cig and/or Vaping Andriy: Never a User Substance use?: No Substance type: Caffeine Alcohol Use?: No Alcohol Frequency: Once in a while Pt feels they are or have been: No Immunizations Up To Date Date of Influenza Vaccine: Jan 31, 2016 First/Initial COVID19 Vaccinat: 2020 Second COVID19 Vaccination Bjorn: 2020 Tetanus Booster (TDap): Unknown Date of Pneumonia Vaccine: Nov 02, 2009 Seasonal Allergies Seasonal Allergies: No Current Status Communicates: Verbally Primary Language: Kazakh Preferred Spoken Language: Kazakh Is interpretation needed?: No Sensory deficits: Vision impairment Past Medical History Surgeries: Appendectomy, Gallbladder, Hysterectomy Sleep Apnea Currently Using CPAP: Yes 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 Sexually Transmitted Disease: No HIV/AIDS: No Gastroesophageal Reflux, Chronic Diarrhea Arthritis, Chronic Back Pain Hypothyroidsim Loss of Vision: Denies Hearing Impairment: Denies Lymphoma, Uterine Did You Recieve Any Treatments: Yes What Type of Treatment Did You: Chemotherapy, Surgical Intervention Anxiety Blood Disorders: No Adverse Reaction/Blood Tranf: No lupus, sjogrens syndrome Family Medical History Reviewed Nursing Family Hx Colon cancer 19 MOTHER (not sure where primary cancer was located) Diabetes mellitus G8 BROTHER Not obtainable due to adoption 19 FATHER Psychosocial problem G8 SISTER (setziaphrenia) Respiratory disorder G8 SISTER (sleep apnea) Thyroid disease G8 SISTER (goiters) Tuberculosis Heart Disease, Cancer, Diabetes, Other Conditions/Hx (thyroid disease) Review of Systems Constitutional: No chills, No fever, No malaise, No weakness EENTM: No hoarseness, No throat pain Respiratory: No cough; dyspnea on exertion, orthopnea, short of breath, wheezing Cardiovascular: No chest pain; edema (of hands); No palpitations Gastrointestinal: No abdominal pain, No constipation, No diarrhea, No nausea, No vomiting Genitourinary: no symptoms reported Musculoskeletal: No back pain; muscle weakness Skin: no symptoms reported Psychiatric/Neurological: Denies Anxiety, Denies Depressed, Denies Weakness All Other Systems Reviewed Negative Unless Noted: Yes Physical Exam Vital Signs Vital Signs - First Documented 09/07/22 09/07/22 09:08 09:10 Temp 36.6 Pulse 111 Resp 24 B/P (MAP) 190/118 (142) Pulse Ox 93 O2 Delivery Nasal Cannula O2 Flow Rate 2.00 Capillary Refill : Less Than 3 Seconds Height, Weight, BMI Height: 5'4.00" Weight: 292lbs. 5.0oz. 132.859143oi; 50.98 BMI Method:Stated General Appearance: No Apparent Distress, WD/WN HEENT: PERRL/EOMI Neck: Full Range of Motion, Non Tender, Supple Respiratory: Chest Non Tender, Lungs Clear, Normal Breath Sounds, No Accessory Muscle Use, No Respiratory Distress Cardiovascular: Regular Rate, Rhythm, No Edema, No Murmur, Normal Peripheral Pulses Gastrointestinal: Normal Bowel Sounds, Non Tender, Soft Rectal: Deferred Back: Normal Inspection Extremity: Normal Capillary Refill, Non Tender, No Calf Tenderness, No Pedal Edema Neurologic/Psychiatric: Alert, Oriented x3, No Motor/Sensory Deficits, Normal Mood/Affect Skin: Normal Color, Warm/Dry Lymphatic: No Adenopathy Assessment/Plan Assessment and Plan Acute congestive heart failure due to diastolic dysfunction Concentric Hypertrophy of Left ventricle Acute Respiratory failure Chest pain Lupus Sjogrens Syndrome Sleep apnea with chronic cpap use Dilated left Atrium Mild mitral regurgitation Mild Pulmonary Artery Hypertension High risk medication use ECHO - left ventricle wall thickness mildly increased, concentric hypertrophy of left ventricle, EF of 55 - 60%, Grade 1 diastolic dysfunction. Admission Diagnosis Acute congestive heart failure due to diastolic dysfunction Concentric Hypertrophy of Left ventricle Acute Respiratory failure Chest pain Lupus Sjogrens Syndrome Sleep apnea with chronic cpap use Dilated left Atrium Mild mitral regurgitation Mild Pulmonary Artery Hypertension High risk medication use Acute congestive heart failure due to diastolic dysfunction with Concentric Hypertrophy of Left ventricle and Mild pulmonary artery hypertension - pt to have heart catheterization tomorrow with Dr. Cintron - med review - will hold plaquenil for now - will call to her Live Truck Operator tomorrow to discuss the plan going forward with her autoimmune disease and if they are okay with going back on the hydroxychloroquine (plaquenil) or if it should be stopped and a different auto-immune modulating medication should be started. - plaquenil has cardiovascular side effect of cardiomyopathy, long qt syndrome, cardiotoxicity - although not common, is a possibility. Acute Respiratory failure - improved after diuresis Chest pain - resolved Lupus with Sjogrens Syndrome - pt on plaquenil - stop for now - pending recommendations by specialist may start steroids Sleep apnea with chronic cpap use - resume in hospital Dilated left Atrium Mild mitral regurgitation Mild Pulmonary Artery Hypertension High risk medication use Admission Status: Inpatient Order (span 2 midnights) Reason for Inpatient Admission: inpatient admission for acute congestive heart failure due to diastolic dysfunction - will require at least 48 hours in the hospital Clinical Quality Measures AMI/AHF: ASA po Prior to arrival: No RIGO KUHN MD September 07, 2022 18:32
[2022-09-07 19:56] VITALS: BP 120/79
[2022-09-07] MEDS: ALPRAZolam 0.5 MG (XANAX) TAB PO PRN (20:57)
[2022-09-08] VITALS (7 sets, daily range): BP systolic 98–130; BP diastolic 62–83
[2022-09-08 04:38] LABS: BASOPHILS % (AUTO) 1 % (0-10); EOSINOPHILS # (AUTO) 0.2 10^3/uL (0.0-0.3); EOSINOPHILS % (AUTO) 3 % (0-10); HEMATOCRIT 40 % (35-52); HEMOGLOBIN 12.7 g/dL (11.5-16.0); LYMPHOCYTES # (AUTO) 1.6 10^3/uL (1.0-4.0); LYMPHOCYTES % (AUTO) 27 % (12-44); MEAN CORPUSCULAR HEMOGLOBIN 30 pg (25-34); MEAN CORPUSCULAR HGB CONC 32 g/dL (32-36); MEAN CORPUSCULAR VOLUME 94 fL (80-99); MONOCYTES # (AUTO) 0.5 10^3/uL (0.0-1.0); MONOCYTES % (AUTO) 8 % (0-12); NEUTROPHILS # (AUTO) 3.7 10^3/uL (1.8-7.8); NEUTROPHILS % (AUTO) 62 % (42-75); PLATELET COUNT 239 10^3/uL (130-400)
[2022-09-08 04:55] LABS: CALCIUM 8.6 MG/DL (8.5-10.1); CREATININE SERUM 0.91 MG/DL (0.60-1.30); POTASSIUM 3.4 MMOL/L (3.6-5.0)
[2022-09-08] MEDS: FUROSEMIDE 40 MG/4 ML INJ (LASIX) IVP SCH ×2 (06:22→16:34)
[2022-09-08] MEDS: CATHETER FLUSH 10 ML SYR IV SCH ×3 (06:22→21:47)
[2022-09-08] MEDS ORDERED: LIDOCAINE 1% INJ 20 ML VIAL ONE (06:36)
[2022-09-08] MEDS ORDERED: HEParin (CATH LAB) 2,000 ML IV ONE (06:36)
[2022-09-08] MEDS ORDERED: fentaNYL INJ 100 MCG/2 ML AMP ONE (08:44)
[2022-09-08] MEDS ORDERED: VERAPAMIL 5 MG/2 ML (CALAN) VIAL IV ONE (08:45)
[2022-09-08] MEDS ORDERED: MIDAZOLAM 5 MG/5 ML (VERSED) VIAL ONE (08:45)
[2022-09-08] MEDS ORDERED: NS IV 1000 ML 1,000 ML ONE (08:45)
[2022-09-08] MEDS ORDERED: NITRO DRIP 25000 MCG/D5W 0 ML IV ONE (08:45)
[2022-09-08] MEDS ORDERED: HEParin 1000 UNIT/ML (10ML VIAL) FOR BOLUS ONE (08:45)
--- NOTE | 2022-09-08 11:22 | Coronary Angiography Report ---
Coronary Angiography Report DATE OF PROCEDURE: 09/08/22 INDICATION: Chest pain, new onset acute diastolic congestive heart failure. PREOPERATIVE DIAGNOSIS: Chest pain, new onset acute diastolic congestive heart failure. POSTOPERATIVE DIAGNOSIS: Normal coronaries HISTORY: This is a 62-year-old lady with known history of lupus/Sjogren syndrome. Presents with chest tightness and acute diastolic congestive heart failure. Therefore, the patient was scheduled for coronary angiography. PROCEDURES PERFORMED: 1.Coronary angiography. 2.Left heart catheterization. COMPLICATIONS: None. SPECIMENS: None. ESTIMATED BLOOD LOSS: 10 mL ANESTHESIA: Conscious sedation ANTICOAGULATION: None CONTRAST: 55 mL. PROCEDURE DETAILS: The patient is a 62 female and was brought to the catheter builder after informed consent was taken. All the risks and complications were explained in detail; this included the risk of bleeding, vascular damage, stroke, IL and even . The patient was draped and prepped in the usual sterile fashion. Access was gained in the right femoral artery with a 5 [place] sheath. coronary angiography and left heart catheterization was performed with the JR4, JL 4 and pigtail catheter FINDINGS: 1.Left main: Patent 2.LAD: Patent 3.Left circumflex artery: Very mild disease in the proximal segment 4.RCA: Patent 5.Left heart catheterization: LVEDP 16 mmHg. Aortic pressure 91/54 mmHg. LV pressure 100/5 mmHg. No gradient across the aortic valve. Normal LV function with no wall motion abnormality. CONCLUSIONS: Mild coronary artery disease. Normal LVEDP. Continue management of coronary risk factors including hypertension. Patient will follow-up with cardiology as an outpatient. Discussed with Dr. LOFTON. Neisha Cintron MD, FACP, FACC, [facility] Interventional Cardiology Chirag CINTRON MD September 08, 2022 11:22
[2022-09-08] MEDS ORDERED: PATIENT MAY USE OWN MEDS, ALL PO SCH (11:30)
[2022-09-08] MEDS ORDERED: NS IV 1000 ML 1,000 ML IV SCH (11:30)
--- NOTE | 2022-09-08 11:59 | Progress Note ---
Subjective Subjective Date Seen by Provider: September 08, 2022 Time Seen by Provider: 11:30 Pt's dtr reports that after she eats she seems to have acute shortness of breath with edema Pt is immediately status post heart cath Review of Systems General: No Chills, No Fatigue, No Malaise Pulmonary: Dyspnea; No Cough Cardiovascular: No: Chest Pain, Palpitations Gastrointestinal: No: Nausea Genitourinary: No Dysuria, No Frequency Neurological: Weakness All Other Systems Reviewed All Other Systems Reviewed: Yes Objective Exam Vital Signs Vital Signs Date Time Temp Pulse Resp B/P (MAP) Pulse Ox O2 Delivery O2 Flow Rate FiO2 09/08/22 11:17 36.5 84 14 98/62 (74) 98 Nasal Cannula 4.00 09/08/22 08:00 37.4 96 20 92 Room Air 09/08/22 08:00 92 Room Air 09/08/22 07:00 87 09/08/22 04:00 37.2 89 17 116/77 (90) 93 NIV CPAP 09/08/22 03:38 94 95 30.00 09/08/22 01:00 98 09/08/22 00:00 99 18 107/75 (86) 92 Nasal Cannula 2.00 09/08/22 00:00 37.4 09/07/22 21:02 102 98 30.00 09/07/22 19:56 37.9 102 19 120/79 (93) 94 Nasal Cannula 2.00 09/07/22 19:47 94 Room Air 09/07/22 19:00 103 09/07/22 16:00 36.9 103 16 120/70 (87) 93 Nasal Cannula 2.00 09/07/22 12:51 104 09/07/22 12:00 36.7 101 20 138/90 (106) 92 Room Air I & O 09/08/22 07:00 Intake Total 2900 ml Output Total 1900 ml Balance 1000 ml General Appearance: No Apparent Distress, WD/WN HEENT: PERRL/EOMI Neck: Full Range of Motion, Non Tender, Supple Respiratory: Chest Non Tender, Lungs Clear, Normal Breath Sounds, No Accessory Muscle Use, No Respiratory Distress Cardiovascular: Regular Rate, Rhythm, No Edema, No Murmur, Normal Peripheral Pulses Gastrointestinal: Normal Bowel Sounds, Non Tender, Soft Rectal: Deferred Back: Normal Inspection Extremity: Normal Capillary Refill, Non Tender, No Calf Tenderness, No Pedal Edema Neurologic/Psychiatric: Alert, Oriented x3, No Motor/Sensory Deficits, Normal Mood/Affect Skin: Normal Color, Warm/Dry Lymphatic: No Adenopathy Results Lab Laboratory Tests 09/08/22 04:20: White Blood Count 6.0, Red Blood Count 4.20, Hemoglobin 12.7, Hematocrit 40, Mean Corpuscular Volume 94, Mean Corpuscular Hemoglobin 30, Mean Corpuscular Hemoglobin Concent 32, Red Cell Distribution Width 12.7, Platelet Count 239, Mean Platelet Volume 10.0, Immature Granulocyte % (Auto) 0, Neutrophils (%) (Auto) 62, Lymphocytes (%) (Auto) 27, Monocytes (%) (Auto) 8, Eosinophils (%) (Auto) 3, Basophils (%) (Auto) 1, Neutrophils # (Auto) 3.7, Lymphocytes # (Auto) 1.6, Monocytes # (Auto) 0.5, Eosinophils # (Auto) 0.2, Basophils # (Auto) 0.0, Immature Granulocyte # (Auto) 0.0, Sodium Level 140, Potassium Level 3.4L, Chloride Level 100, Carbon Dioxide Level 28, Anion Gap 12, Blood Urea Nitrogen 13, Creatinine 0.91, Estimat Glomerular Filtration Rate 71, BUN/Creatinine Ratio 14, Glucose Level 96, Calcium Level 8.6 Assessment/Plan Assessment/Plan Admission Dx Acute congestive heart failure due to diastolic dysfunction Concentric Hypertrophy of Left ventricle Acute Respiratory failure Chest pain Lupus Sjogrens Syndrome Sleep apnea with chronic cpap use Dilated left Atrium Mild mitral regurgitation Mild Pulmonary Artery Hypertension High risk medication use Assessment and Plan Acute congestive heart failure due to diastolic dysfunction Concentric Hypertrophy of Left ventricle Acute Respiratory failure Chest pain Lupus Sjogrens Syndrome Sleep apnea with chronic cpap use Dilated left Atrium Mild mitral regurgitation Mild Pulmonary Artery Hypertension High risk medication use Acute congestive heart failure due to diastolic dysfunction with Concentric Hypertrophy of Left ventricle and Mild pulmonary artery hypertension - status post heart catheterization with Dr. Cintron - negative for acute coronary disease - med review - pt is on plaquenil which has cardiovascular side effect of cardiomyopathy, long qt syndrome, cardiotoxicity - although not common, is a possibility. 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 - holding/stopping plaquenil - they will call her early next week to get her in for medication discussion - meanwhile will start her on steroids - 20mg today and 10mg daily x 1 week then down to 5mg daily x 5 days then 1/2 tab daily x 5 days then stop Sleep apnea with chronic cpap use - resumed in hospital Dilated left Atrium Mild mitral regurgitation Mild Pulmonary Artery Hypertension High risk medication use Admission Dx Acute congestive heart failure due to diastolic dysfunction Concentric Hypertrophy of Left ventricle Acute Respiratory failure Chest pain Lupus Sjogrens Syndrome Sleep apnea with chronic cpap use Dilated left Atrium Mild mitral regurgitation Mild Pulmonary Artery Hypertension High risk medication use Clinical Quality Measures Admission Status Admission Dx Acute congestive heart failure due to diastolic dysfunction Concentric Hypertrophy of Left ventricle Acute Respiratory failure Chest pain Lupus Sjogrens Syndrome Sleep apnea with chronic cpap use Dilated left Atrium Mild mitral regurgitation Mild Pulmonary Artery Hypertension High risk medication use AMI/AHF: ASA po Prior to arrival: RIGO Mckinley MD September 08, 2022 11:58
[2022-09-08] MEDS ORDERED: POTA-177 PO (17:28)
[2022-09-08] MEDS ORDERED: PRD10T PO (17:28)
[2022-09-08] MEDS ORDERED: FURO20TA4 PO (17:28)
[2022-09-08] MEDS ORDERED: predniSONE 20 MG TAB PO NR (17:30)
[2022-09-08] MEDS: ALPRAZolam 0.5 MG (XANAX) TAB PO PRN (21:53)
[2022-09-09 03:41] VITALS: BP 120/68
[2022-09-09] MEDS: FUROSEMIDE 40 MG/4 ML INJ (LASIX) IVP SCH (06:19)
[2022-09-09] MEDS: CATHETER FLUSH 10 ML SYR IV SCH (06:20)
[2022-09-09] MEDS ORDERED: predniSONE 10 MG TAB PO SCH (07:00)
[2022-09-09 07:49] VITALS: BP 137/79
[2022-09-09 09:03] LABS: POTASSIUM 3.4 MMOL/L (3.6-5.0)
[2022-09-09 09:04] LABS: CALCIUM 9.9 MG/DL (8.5-10.1)
[2022-09-09 09:07] LABS: BASOPHILS % (AUTO) 1 % (0-10); EOSINOPHILS % (AUTO) 1 % (0-10); HEMATOCRIT 41 % (35-52); HEMOGLOBIN 13.8 g/dL (11.5-16.0); LYMPHOCYTES # (AUTO) 0.9 10^3/uL (1.0-4.0); LYMPHOCYTES % (AUTO) 10 % (12-44); MEAN CORPUSCULAR HEMOGLOBIN 31 pg (25-34); MEAN CORPUSCULAR HGB CONC 33 g/dL (32-36); MEAN CORPUSCULAR VOLUME 92 fL (80-99); MONOCYTES # (AUTO) 0.5 10^3/uL (0.0-1.0); MONOCYTES % (AUTO) 5 % (0-12); NEUTROPHILS # (AUTO) 7.2 10^3/uL (1.8-7.8); NEUTROPHILS % (AUTO) 83 % (42-75); PLATELET COUNT 271 10^3/uL (130-400); WHITE BLOOD COUNT 8.7 10^3/uL (4.3-11.0)
[2022-09-09 09:09] LABS: CREATININE SERUM 0.93 MG/DL (0.60-1.30)
[2022-09-09 09:11] LABS: MAGNESIUM 1.8 MG/DL (1.6-2.4)
[2022-09-09 11:26] VITALS: BP 148/80
[2022-09-09 12:00] VITALS: BP 148/80
--- NOTE | 2022-09-09 14:47 | Discharge Summary ---
Discharge Summary Hospital Course Problems/Dx: (1) Acute diastolic (congestive) heart failure Status: Acute (2) Lupus (systemic lupus erythematosus) Status: Chronic (3) Essential hypertension Status: Acute (4) Chest pain at rest Status: Acute Hospital Course Date of Admission: September 07, 2022 at 11:34 Admission Diagnosis : Acute diastolic heart failure Family Physician/Provider: Rigo Kuhn MD Date of Discharge: 09/09/22 Discharge Diagnosis: Acute diastolic heart failure Hospital Course: Cammie Velazquez is a 62 year old female with PMH lupus on Plaquenil who was admitted with acute diastolic heart failure. Cardiology was consulted and assisted with her care. She was diuresed and symptoms improved. She underwent a left heart cath which showed no significant coronary artery disease. Her Plaquenil was discontinued as the possible cause of her non-ischemic cardiomyopathy. She was restarted on prednisone. She was given a prescription for Lasix and potassium. She was discharged home in stable condition. Labs and Pending Lab Test: Laboratory Tests 09/09/22 08:55: White Blood Count 8.7, Red Blood Count 4.49, Hemoglobin 13.8, Hematocrit 41, Mean Corpuscular Volume 92, Mean Corpuscular Hemoglobin 31, Mean Corpuscular Hemoglobin Concent 33, Red Cell Distribution Width 12.3, Platelet Count 271, Mean Platelet Volume 10.0, Immature Granulocyte % (Auto) 0, Neutrophils (%) (Auto) 83H, Lymphocytes (%) (Auto) 10L, Monocytes (%) (Auto) 5, Eosinophils (%) (Auto) 1, Basophils (%) (Auto) 1, Neutrophils # (Auto) 7.2, Lymphocytes # (Auto) 0.9L, Monocytes # (Auto) 0.5, Eosinophils # (Auto) 0.0, Basophils # (Auto) 0.0, Immature Granulocyte # (Auto) 0.0, Sodium Level 137, Potassium Level 3.4L, Chloride Level 97L, Carbon Dioxide Level 26, Anion Gap 14, Blood Urea Nitrogen 16, Creatinine 0.93, Estimat Glomerular Filtration Rate 69, BUN/Creatinine Ratio 17, Glucose Level 144H, Calcium Level 9.9, Magnesium Level 1.8 Home Meds Active Prednisone 10 Mg Tab 1 Tab PO UD 2tabs daily x 5 days then 1 tab daily x 5 days then 1/2 tab daily x 5 dasy then stop Potassium Chloride 10 Meq Tab.er.prt 10 Meq PO DAILY Furosemide 20 Mg Tablet 20 Mg PO DAILY Reported Xanax (Alprazolam) 0.5 Mg Tablet 0.5 Mg PO PRN Vitamin D2 (Ergocalciferol (Vitamin D2)) 1,250 Mcg (07395 Unit) Capsule 1,250 Mcg PO SUN Fish Oil 1,200 mg Softgel ([place]-3 Fatty Acids/Fish Oil) 1 Each Capsule 1,200 Mg PO DAILY Multivitamins (Multivitamin) 1 Each Tablet 1 Tab PO DAILY Assessment/Pt Instructions Take medications as prescribed. Follow up with your PCP and cardiology as scheduled. Return with worsening shortness of breath, pain, or if you feel like you are getting worse. Discharge Planning: <30 minutes discharge planning Discharge Instructions Discharge Diet: Low Sodium Diet Activity as Tolerated: Yes Consultations Cardiology Discharge Physical Examination Vital Signs Vital Signs Date Time Temp Pulse Resp B/P (MAP) Pulse Ox O2 Delivery O2 Flow Rate FiO2 09/09/22 12:00 37.4 102 18 148/80 95 Room Air 4.00 General Appearance: No Apparent Distress, Obese Respiratory: Lungs Clear, No Respiratory Distress Cardiovascular: Regular Rate, Rhythm, No Murmur Gastrointestinal: Normal Bowel Sounds, Soft Extremity: Normal Inspection, Pedal Edema Neurologic/Psychiatric: Alert, Normal Mood/Affect Allergies: Coded Allergies: codeine (Unverified Allergy, Mild, 08/02/09) Copy Copies To 1: RIGO KUHN MD Discharge Summary Date of Admission September 07, 2022 at 11:34 Date of Discharge September 09, 2022 at 12:30 Discharge Date: September 09, 2022 Discharge Time: 12:30 Admission Diagnosis Acute diastolic heart failure Consults/Procedures Consulations Cardiology Procedures Left heart cath Discharge Diagnosis (1) Acute diastolic (congestive) heart failure Status: Acute (2) Lupus (systemic lupus erythematosus) Status: Chronic (3) Essential hypertension Status: Acute (4) Chest pain at rest Status: Acute Clinical Quality Measures AMI/AHF: ASA po Prior to arrival: JOSE Clarke MD September 09, 2022 14:38
== END 2022-09-09 12:30 | disposition home or self-care (01) | DRG 286 ==
LOC: EDUNIT# 09:08 → ER 09:10 → CSD 11:34 → 4TH 09-08 15:01
PROVIDERS: ADMIT Family Medicine; ATTEND Internal Medicine
PROC: 4A023N7 Measurement of Cardiac Sampling and Pressure, Left Heart, Percutaneous Approach (ICD-10-PCS; principal; 2022-09-08)
PROC: B2111ZZ Fluoroscopy of Multiple Coronary Arteries using Low Osmolar Contrast (ICD-10-PCS; 2022-09-08)
DX: I11.0 Hypertensive heart disease with heart failure (principal); I50.31 Acute diastolic (congestive) heart failure; J96.01 Acute respiratory failure with hypoxia; I48.0 Paroxysmal atrial fibrillation; M32.9 Systemic lupus erythematosus, unspecified; M35.00 Sjogren syndrome, unspecified; I34.0 Nonrheumatic mitral (valve) insufficiency; I27.20 Pulmonary hypertension, unspecified; G47.30 Sleep apnea, unspecified; R07.9 Chest pain, unspecified; I42.9 Cardiomyopathy, unspecified; K21.9 Gastro-esophageal reflux disease without esophagitis; M19.90 Unspecified osteoarthritis, unspecified site; E03.9 Hypothyroidism, unspecified; F41.9 Anxiety disorder, unspecified; H54.7 Unspecified visual loss; Z85.42 Personal history of malignant neoplasm of other parts of uterus; Z85.72 Personal history of non-Hodgkin lymphomas; Z79.899 Other long term (current) drug therapy; Z79.52 Long term (current) use of systemic steroids; Z79.01 Long term (current) use of anticoagulants; Z79.1 Long term (current) use of non-steroidal anti-inflammatories (NSAID); Z88.5 Allergy status to narcotic agent
CPT/HCPCS: 36415; 71045; 71275; 80048; 80053; 83735; 83880; 84443; 84484; 85025; 86141; 93005; 93041; 93306; 93458; 94640; 94660

== ENCOUNTER 2022-10-04 06:54 | Emergency (ER) | payer OTHER ==
[~2022-10-04] VITALS: Ht 165.1 cm; Wt 132.9 kg
[~2022-10-04 06:54] MED LIST changes: +ALPR0.5T PO; +ERGO1250 PO; +FURO20TA4 PO; +HYDR200T46 PO; +POTA-177 PO
--- NOTE | 2022-10-04 07:39 | ED Abdominal Pain ---
General Stated Complaint: VOMITING/ABD PAIN Source of Information: Patient Exam Limitations: No Limitations History of Present Illness Date Seen by Provider: Oct 04, 2022 Time Seen by Provider: 07:27 Initial Comments Patient is a 62-year-old female who presents to the emergency department with a chief complaint of nausea, vomiting x2, diarrhea x7 or 8 since 4 AM this morning. She also endorses severe "heartburn" and epigastric discomfort. She states at onset the pain was a "10+". She states it is improved,. She has not taken any medications for her symptoms. No sick contacts at home. She did have supper here at work at around 10 or 1030. She denies any blood in her vomit or black tarry diarrhea or bright red blood in her stool. No dysuria urgency or frequency. No fevers or chills or URI symptoms. She states over the last 3 or 4 days she has felt a little off balance when she stands up from a chair to walk. She states she "stumbles" to the right. She denies headache, vision changes. She normally does not have heartburn, she is not on any acid reducing medications. She does have a history of Sjogren syndrome and is on daily prednisone 10 mg for the last 3 months. Patient was recently admitted to the hospital at the beginning of August with acute diastolic congestive heart failure. Her Plaquenil was discontinued and she was restarted on prednisone. She was also placed on Lasix and potassium. Echo reviewed from that admission shows EF of 55 to 60%. Heart cath performed by Dr. Cintron showed no obstructive coronary artery disease. She has had a follow-up outpatient with Dr. Yarbrough. Patient has a remote history of non-Hodgkin's lymphoma, 2003. She has not had oncology follow-up she states in probably 10 years. Timing/Duration: 4-6 Hours Severity/Quality: Severe, Aching, Burning Location: Epigastric Radiation: No Radiation Activities at Onset: Other (at work) Associated Symptoms: Heartburn, Nausea/Vomiting, Weakness, Other (diarrhea) Allergies and Home Medications Allergies Coded Allergies: codeine (Unverified Allergy, Mild, 08/02/09) Patient Home Medication List Home Medication List Reviewed: Yes Alprazolam (Xanax) 0.5 Mg Tablet, 0.5 MG PO PRN, (Reported) Entered as Reported by: LEON GRADY on 09/07/22 1720 Dicyclomine HCl (Dicyclomine HCl) 20 Mg Tablet, 20 MG PO Q6H PRN for abdominal cramping Prescribed by: ZAHEER TONG on 10/04/22 1044 Ergocalciferol (Vitamin D2) (Vitamin D2) 1,250 Mcg (66993 Unit) Capsule, 1,250 MCG PO SUN, (Reported) Entered as Reported by: RHONDA NICOLAS on 09/07/22 1153 Furosemide (Furosemide) 20 Mg Tablet, 20 MG PO DAILY Prescribed by: RIGO LOFTON on 09/08/22 1728 Metronidazole (Metronidazole) 500 Mg Tablet, 500 MG PO TID Prescribed by: ZAHEER TONG on 10/04/22 1044 Multivitamin (Multivitamins) 1 Each Tablet, 1 TAB PO DAILY, (Reported) Entered as Reported by: KELBY NEGRON on 03/02/16 1602 [place]-3 Fatty Acids/Fish Oil (Fish Oil 1,200 mg Softgel) 1 Each Capsule, 1,200 MG PO DAILY, (Reported) Entered as Reported by: GUZMAN CHEUNG on 01/14/17 1308 Ondansetron (Ondansetron Odt) 4 Mg Tab.rapdis, 4 MG SL Q6H PRN for NAUSEA/VOMITING Prescribed by: ZAHEER TONG on 10/04/22 1044 Potassium Chloride (Potassium Chloride) 10 Meq Tab.er.prt, 10 MEQ PO DAILY Prescribed by: RIGO LOFTON on 09/08/22 1728 Prednisone (Prednisone) 10 Mg Tab, 1 TAB PO UD Prescribed by: RIGO LOFTON on 09/08/22 1728 Review of Systems Review of Systems Constitutional: see HPI EENTM: No Symptoms Reported Respiratory: No Symptoms Reported Cardiovascular: No Symptoms Reported Gastrointestinal: Abdominal Pain, Diarrhea, Nausea, Vomiting Genitourinary: No Symptoms Reported Musculoskeletal: no symptoms reported Psychiatric/Neurological: Denies Headache; Other ("balance issues" the last 3-4 days; stumbling to the right) Past Lgvidop-Bpspdh-Ivtcqj Hx Immunizations Up To Date Tetanus Booster (TDap): Unknown First/Initial COVID19 Vaccinat: 2020 Second COVID19 Vaccination Bjorn: 2020 Third COVID19 Vaccination Date: 2020 Seasonal Allergies Seasonal Allergies: No Past Medical History Surgery/Hospitalization HX: LUPUS, SJORGENS, HX OF NON-HODGKINS LYMPHOMA, HYST, DENNIS, APPE Surgeries: Yes (appy) Appendectomy, Gallbladder, Hysterectomy Respiratory: Yes Sleep Apnea Currently Using CPAP: Yes Cardiac: Yes Atrial Fibrillation Neurological: No 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 Sexually Transmitted Disease: No HIV/AIDS: No Genitourinary: No Gastrointestinal: Yes Gastroesophageal Reflux, Chronic Diarrhea Musculoskeletal: Yes (OSTEO ARTHRITIS) Arthritis, Chronic Back Pain Endocrine: No Hypothyroidsim HEENT: No Loss of Vision: Denies Hearing Impairment: Denies Cancer: Yes Lymphoma, Uterine Did You Recieve Any Treatments: Yes What Type of Treatment Did You: Chemotherapy, Surgical Intervention Psychosocial: Yes (STRESS) Anxiety Integumentary: Yes (occasionally has red spots appear) Blood Disorders: No Adverse Reaction/Blood Tranf: No Family Medical History Colon cancer 19 MOTHER (not sure where primary cancer was located) Diabetes mellitus G8 BROTHER Not obtainable due to adoption 19 FATHER Psychosocial problem G8 SISTER (setziaphrenia) Respiratory disorder G8 SISTER (sleep apnea) Thyroid disease G8 SISTER (goiters) Tuberculosis Heart Disease, Cancer, Diabetes, Other Conditions/Hx Physical Exam Vital Signs Vital Signs - First Documented 10/04/22 07:17 Temp 37.0 Pulse 107 Resp 22 B/P (MAP) 132/85 (101) Pulse Ox 97 O2 Delivery Room Air Capillary Refill : Height/Weight/BMI Height: 5'4.00" Weight: 292lbs. 5.0oz. [id number]; 56.23 BMI Method:Stated General Appearance: WD/WN, no apparent distress, obese HEENT: PERRL/EOMI, other (dry oral mucosa) Neck: normal inspection Respiratory: lungs clear, normal breath sounds, no respiratory distress, no accessory muscle use Cardiovascular: regular rate, rhythm Gastrointestinal: soft, tenderness (epigastric) Extremities: normal range of motion, normal inspection, no pedal edema Neurologic/Psychiatric: alert, normal mood/affect, oriented x 3 Skin: normal color, warm/dry Progress/Results/Core Measures Results/Orders Lab Results Laboratory Tests Test 10/04/22 08:10 Range/Units White Blood Count 12.2 H 4.3-11.0 10^3/uL Red Blood Count 4.82 3.80-5.11 10^6/uL Hemoglobin 14.8 11.5-16.0 g/dL Hematocrit 45 35-52 % Mean Corpuscular Volume 93 80-99 fL Mean Corpuscular Hemoglobin 31 25-34 pg Mean Corpuscular Hemoglobin Concent 33 32-36 g/dL Red Cell Distribution Width 12.7 10.0-14.5 % Platelet Count 193 130-400 10^3/uL Mean Platelet Volume 10.2 9.0-12.2 fL Immature Granulocyte % (Auto) 1 % Neutrophils (%) (Auto) 84 H 42-75 % Lymphocytes (%) (Auto) 8 L 12-44 % Monocytes (%) (Auto) 6 0-12 % Eosinophils (%) (Auto) 1 0-10 % Basophils (%) (Auto) 1 0-10 % Neutrophils # (Auto) 10.2 H 1.8-7.8 10^3/uL Lymphocytes # (Auto) 1.0 1.0-4.0 10^3/uL Monocytes # (Auto) 0.8 0.0-1.0 10^3/uL Eosinophils # (Auto) 0.1 0.0-0.3 10^3/uL Basophils # (Auto) 0.1 0.0-0.1 10^3/uL Immature Granulocyte # (Auto) 0.1 0.0-0.1 10^3/uL Neutrophils % (Manual) 87 % Lymphocytes % (Manual) 6 % Monocytes % (Manual) 3 % Eosinophils % (Manual) 1 % Basophils % (Manual) % Band Neutrophils 3 % Blood Morphology Comment NORMAL Sodium Level 143 135-145 MMOL/L Potassium Level 3.6 3.6-5.0 MMOL/L Chloride Level 104 98-107 MMOL/L Carbon Dioxide Level 26 21-32 MMOL/L Anion Gap 13 5-14 MMOL/L Blood Urea Nitrogen 21 H 7-18 MG/DL Creatinine 0.87 0.60-1.30 MG/DL Estimat Glomerular Filtration Rate 75 BUN/Creatinine Ratio 24 Glucose Level 100 70-105 MG/DL Calcium Level 9.9 8.5-10.1 MG/DL Corrected Calcium 9.7 8.5-10.1 MG/DL Total Bilirubin 0.6 0.1-1.0 MG/DL Aspartate Amino Transf (AST/SGOT) 12 5-34 U/L Alanine Aminotransferase (ALT/SGPT) 17 0-55 U/L Alkaline Phosphatase 26 L 40-136 U/L Total Protein 7.8 6.4-8.2 GM/DL Albumin 4.3 3.2-4.5 GM/DL Lipase 40 8-78 U/L My Orders Orders - ZAHEER TONG MD Ed Iv/Invasive Line Start (10/04/22 07:39) Cbc With Automated Diff (10/04/22 07:39) Comprehensive Metabolic Panel (10/04/22 07:39) Lipase (10/04/22 07:39) Ondansetron Injection (Zofran Injectio (10/04/22 07:45) Pantoprazole Injection (Protonix Injecti (10/04/22 07:45) Lactated Ringers (Lr 1000 Ml Iv Solution (10/04/22 07:45) Manual Differential (10/04/22 08:10) Sucralfate Tablet (Carafate Tablet) (10/04/22 09:15) Antacid Suspension (Mylanta Suspension (10/04/22 09:15) Lidocaine 2% Viscous 15 Ml (Xylocaine Vi (10/04/22 09:15) Ct Abdomen/Pelvis W (10/04/22 09:26) Iohexol Injection (Omnipaque 350 Mg/Ml 1 (10/04/22 09:30) Received Contrast (Hold Metformin- Contr (10/04/22 09:30) Ns (Ivpb) (Sodium Chloride 0.9% Ivpb Bag (10/04/22 09:30) Medications Given in ED Current Medications Medications Dose Ordered Sig/Ngco Route Start Time Stop Time Status Last Admin Dose Admin Al Hydrox/Mg Hydrox/Simethicone 30 ml ONCE ONCE PO 10/04/22 09:15 10/04/22 09:16 DC 10/04/22 09:34 30 ML Iohexol 100 ml ONCE ONCE IV 10/04/22 09:30 10/04/22 09:41 DC 10/04/22 09:49 100 ML Lidocaine HCl 5 ml ONCE ONCE PO 10/04/22 09:15 10/04/22 09:16 DC 10/04/22 09:34 5 ML Ondansetron HCl 8 mg ONCE ONCE IVP 10/04/22 07:45 10/04/22 07:46 DC 10/04/22 07:47 8 MG Pantoprazole 40 mg ONCE ONCE IV 10/04/22 07:45 10/04/22 07:46 DC 10/04/22 07:47 40 MG Sodium Chloride 100 ml ONCE ONCE IV 10/04/22 09:30 10/04/22 09:41 DC 10/04/22 09:49 80 ML Sucralfate 1 gm ONCE ONCE PO 10/04/22 09:15 10/04/22 09:16 DC 10/04/22 09:33 1 GM Vital Signs/I&O 10/04/22 10/04/22 07:17 11:06 Temp 37.0 Pulse 107 Resp 22 B/P (MAP) 132/85 (101) 122/82 Pulse Ox 97 O2 Delivery Room Air Progress Progress Note : Time: 10:30 Progress Note Patient seen and evaluated by me, evaluation today includes physical exam, CBC, Chem-12, CT abdomen pelvis with IV contrast. Pertinent physical exam findings include well-developed well-nourished obese female mild distress due to nausea and diffuse abdominal discomfort. Bowel sounds are present, abdomen is soft, no involuntary guarding or rebound tenderness is noted. Heart is regular, lungs are clear. No lower extremity edema. No focal neurologic deficits. Differential diagnosis based on history and physical exam, partial small bowel obstruction, gastroenteritis. Labs independently interpreted by me. CT scan of the abdomen pelvis read by the radiologist. CBC shows a total white count of 12.2 with 84% segmented neutrophils. Hemoglobin of 14.8 hematocrit of 45 platelet count 193. Comprehensive metabolic panel within normal limits. CT scan of the abdomen and pelvis with IV contrast shows right-sided findings consistent with colitis. No acute surgical process is noted. Patient is treated with lactated Ringer's, IV Zofran and IV Protonix. Once these medications have been given time to start improving her I added a GI cocktail. After work-up was completed the patient stated she felt much better. She was tolerating sips of clear liquids. No concerning findings for small bowel obstruction. She did have evidence of right-sided colitis. Will treat with Flagyl. Patient has a primary care physician, I recommended that she follow-up next week. Verbal and written return precautions were provided to the patient. She is comfortable with the plan of care. All questions are sought and answered. Patient is improved at the time of discharge. Diagnostic Imaging Diagonstic Imaging: CT Comments [facility], [place] NAME: LUIS PALACIO [facility] REC#: [id number] PT STATUS: REG ER : 1960 PHYSICIAN: ZAHEER TONG MD ADMIT DATE: 10/04/22/ER Signed Date of Exam:10/04/22 CT ABDOMEN/PELVIS W EXAMINATION: CT abdomen and pelvis with intravenous contrast. TECHNIQUE: Multiple contiguous axial images were obtained through the abdomen and pelvis after the uneventful administration of intravenous contrast. All CT scans use one or more of the following dose optimizing techniques: automated exposure control, MA and/or KvP adjustment based on patient size and exam type or iterative reconstruction. HISTORY: upper abdominal pain, vomiting COMPARISON: 08/23/2016 FINDINGS: Lung bases: The lung bases are clear. Solid organs: The liver is normal without focal lesion. The gallbladder is surgically absent. There is no biliary ductal dilation. Pancreas is normal. Spleen is normal. Adrenal glands are normal. The kidneys are normal without hydronephrosis. There are left renal sinus cysts which require no followup. Bowel: The stomach and small bowel are normal without obstruction. There is wall thickening of the colon, greatest within the right hemicolon. The appendix is normal. Peritoneum: There is no intraperitoneal free fluid or free air. No suspicious lymphadenopathy. Vasculature: Normal without aneurysm. Musculoskeletal: Degenerative changes of the spine without suspicious osseous lesion or compression fracture. Pelvis: The uterus is surgically absent. No adnexal mass. The urinary bladder is normal. IMPRESSION: 1. Mild wall thickening of the colon greatest within the right hemicolon. This finding could be seen with infectious or inflammatory colitis in the appropriate clinical setting. 2. No other acute abnormality in the abdomen or pelvis. Dictated by: Dictated on workstation # [id number] Dict: 10/04/22 [id number] Trans: 10/04/22 1001 [facility] [id number] Interpreted by: WAGNER CHAMORRO DO Electronically signed by: WAGNER CHAMORRO DO 10/04/22 1001 Departure Impression Primary Impression: Colitis Disposition: 01 HOME, SELF-CARE Condition: Improved Departure-Patient Inst. Decision time for Depature: 10:42 Referrals: RIGO LOFTON MD (PCP/Family) Primary Care Physician Patient Instructions: Colitis (DC) Add. Discharge Instructions: Drink plenty of fluids to stay well-hydrated. Take the metronidazole 500 mg 3 times a day for 7 days. Antinausea medication, Zofran 4 mg every 6-8 hours as needed for nausea and vomiting. Dicyclomine 20 mg every 6 hours as needed for abdominal cramping. If you develop a fever over 101, worsening abdominal pain, the nausea medications and dicyclomine are not helping your pain please return to the emergency room for reevaluation. Please follow-up with Dr. Lofton next week. Scripts Dicyclomine HCl (Dicyclomine HCl) 20 Mg Tablet 20 MG PO Q6H PRN for abdominal cramping, #30 TAB Prov: ZAHEER TONG MD 10/04/22 Ondansetron (Ondansetron Odt) 4 Mg Tab.rapdis 4 MG SL Q6H PRN for NAUSEA/VOMITING, #15 TAB Prov: ZAHEER TONG MD 10/04/22 Metronidazole (Metronidazole) 500 Mg Tablet 500 MG PO TID for 7 Days, #21 TAB 0 Refills Prov: ZAHEER TONG MD 10/04/22 Copy Copies To 1: RIGO LOFTON MD, KATHRYN M MD Oct 04, 2022 07:39
[2022-10-04] MEDS ORDERED: ONDANSETRON 4 MG/2 ML (SDV) Z0FRAN IVP ONE (07:45)
[2022-10-04] MEDS ORDERED: LACTATED RINGERS 1,000 ML IV SCH (07:45)
[2022-10-04] MEDS ORDERED: PANTOPRAZOLE 40 MG (PROTONIX) VIAL IV ONE (07:45)
[2022-10-04 08:17] LABS: BASOPHILS # (AUTO) 0.1 10^3/uL (0.0-0.1); BASOPHILS % (AUTO) 1 % (0-10); EOSINOPHILS # (AUTO) 0.1 10^3/uL (0.0-0.3); EOSINOPHILS % (AUTO) 1 % (0-10); HEMATOCRIT 45 % (35-52); HEMOGLOBIN 14.8 g/dL (11.5-16.0); LYMPHOCYTES % (AUTO) 8 % (12-44); MEAN CORPUSCULAR HEMOGLOBIN 31 pg (25-34); MEAN CORPUSCULAR HGB CONC 33 g/dL (32-36); MEAN CORPUSCULAR VOLUME 93 fL (80-99); MEAN PLATELET VOLUME 10.2 fL (9.0-12.2); MONOCYTES # (AUTO) 0.8 10^3/uL (0.0-1.0); MONOCYTES % (AUTO) 6 % (0-12); NEUTROPHILS # (AUTO) 10.2 10^3/uL (1.8-7.8); NEUTROPHILS % (AUTO) 84 % (42-75); PLATELET COUNT 193 10^3/uL (130-400); WHITE BLOOD COUNT 12.2 10^3/uL (4.3-11.0)
[2022-10-04 08:27] LABS: ALBUMIN 4.3 GM/DL (3.2-4.5); POTASSIUM 3.6 MMOL/L (3.6-5.0)
[2022-10-04 08:29] LABS: CALCIUM 9.9 MG/DL (8.5-10.1)
[2022-10-04 08:30] LABS: TOTAL PROTEIN 7.8 GM/DL (6.4-8.2)
[2022-10-04 08:32] LABS: BILIRUBIN,TOTAL 0.6 MG/DL (0.1-1.0)
[2022-10-04 08:34] LABS: CREATININE SERUM 0.87 MG/DL (0.60-1.30)
[2022-10-04 09:11] LABS: BAND NEUTROPHILS 3 %; EOSINOPHILS % (MANUAL) 1 %; LYMPHOCYTES % (MANUAL) 6 %; MONOCYTES % (MANUAL) 3 %; NEUTROPHILS % (MANUAL) 87 %; RBC MORPH NORMAL
[2022-10-04] MEDS ORDERED: ANTACID SUSP 30 ML UDC (MYLANTA) PO ONE (09:15)
[2022-10-04] MEDS ORDERED: LIDOCAINE 2% VISCOUS 15 ML UDC PO ONE (09:15)
[2022-10-04] MEDS ORDERED: SUCRALFATE 1 GM (CARAFATE) TAB PO ONE (09:15)
[2022-10-04] MEDS ORDERED: NS 100 ML (IVPB) BAG IV ONE (09:30)
[2022-10-04] MEDS ORDERED: IOHEXOL 350 MG/ML 100 ML (OMNIPAQUE 350) VIAL IV ONE (09:30)
[2022-10-04] MEDS ORDERED: HOLD METFORMIN - RECEIVED CONTRAST 20 ML VIAL IV SCH (09:30)
--- NOTE | 2022-10-04 09:58 | Diagnostic Imaging Report ---
EXAMINATION: CT abdomen and pelvis with intravenous contrast. TECHNIQUE: Multiple contiguous axial images were obtained through the abdomen and pelvis after the uneventful administration of intravenous contrast. All CT scans use one or more of the following dose optimizing techniques: automated exposure control, MA and/or KvP adjustment based on patient size and exam type or iterative reconstruction. HISTORY: upper abdominal pain, vomiting COMPARISON: 08/23/2016 FINDINGS: Lung bases: The lung bases are clear. Solid organs: The liver is normal without focal lesion. The gallbladder is surgically absent. There is no biliary ductal dilation. Pancreas is normal. Spleen is normal. Adrenal glands are normal. The kidneys are normal without hydronephrosis. There are left renal sinus cysts which require no followup. Bowel: The stomach and small bowel are normal without obstruction. There is wall thickening of the colon, greatest within the right hemicolon. The appendix is normal. Peritoneum: There is no intraperitoneal free fluid or free air. No suspicious lymphadenopathy. Vasculature: Normal without aneurysm. Musculoskeletal: Degenerative changes of the spine without suspicious osseous lesion or compression fracture. Pelvis: The uterus is surgically absent. No adnexal mass. The urinary bladder is normal. IMPRESSION: 1. Mild wall thickening of the colon greatest within the right hemicolon. This finding could be seen with infectious or inflammatory colitis in the appropriate clinical setting. 2. No other acute abnormality in the abdomen or pelvis. Dictated by: Dictated on workstation # [id number]
[2022-10-04] MEDS ORDERED: DICY20TA PO (10:44)
[2022-10-04] MEDS ORDERED: METR-145 PO (10:44)
[2022-10-04] MEDS ORDERED: ONDA4TAB11 SL (10:44)
[2022-10-04 11:06] VITALS: BP 122/82
== END 2022-10-04 11:06 | disposition home or self-care (01) ==
LOC: EDUNIT# 06:54 → ER 06:55
DX: K52.9 Noninfective gastroenteritis and colitis, unspecified (principal); M35.00 Sjogren syndrome, unspecified; G47.30 Sleep apnea, unspecified; E66.9 Obesity, unspecified; Z68.43 Body mass index [BMI] 50.0-59.9, adult; Z99.89 Dependence on other enabling machines and devices; Z79.52 Long term (current) use of systemic steroids
CPT/HCPCS: 36415; 74177; 80053; 83690; 85007; 85027

== ENCOUNTER 2022-11-15 09:43 | Outpatient (RCR) | payer OTHER ==
[~2022-11-15 09:43] MED LIST changes: +DICY20TA PO; -HYDR200T46 PO; +HYDR200T71 PO; +METR-145 PO; +ONDA4TAB11 SL
[2022-11-15 10:02] LABS: BASOPHILS % (AUTO) 1 % (0-10); EOSINOPHILS # (AUTO) 0.1 10^3/uL (0.0-0.3); EOSINOPHILS % (AUTO) 1 % (0-10); HEMATOCRIT 40 % (35-52); HEMOGLOBIN 13.3 g/dL (11.5-16.0); LYMPHOCYTES # (AUTO) 1.7 10^3/uL (1.0-4.0); LYMPHOCYTES % (AUTO) 26 % (12-44); MEAN CORPUSCULAR HEMOGLOBIN 31 pg (25-34); MEAN CORPUSCULAR HGB CONC 34 g/dL (32-36); MEAN CORPUSCULAR VOLUME 91 fL (80-99); MONOCYTES # (AUTO) 0.4 10^3/uL (0.0-1.0); MONOCYTES % (AUTO) 6 % (0-12); NEUTROPHILS # (AUTO) 4.2 10^3/uL (1.8-7.8); NEUTROPHILS % (AUTO) 66 % (42-75); PLATELET COUNT 258 10^3/uL (130-400); WHITE BLOOD COUNT 6.3 10^3/uL (4.3-11.0)
[2022-11-15 10:21] LABS: ALBUMIN 3.9 GM/DL (3.2-4.5); CREATININE SERUM 0.77 MG/DL (0.60-1.30)
== END 2022-11-27 | disposition home or self-care (01) ==
LOC: LAB 09:43
PROVIDERS: ATTEND Registered Nurse Emergency
DX: E55.9 Vitamin D deficiency, unspecified (principal); M35.00 Sjogren syndrome, unspecified; M25.50 Pain in unspecified joint; R76.8 Other specified abnormal immunological findings in serum
CPT/HCPCS: 36415; 82040; 82306; 82565; 84460; 85025

== ENCOUNTER → 2022-11-22 | Outpatient (CLI) | payer OTHER ==
--- NOTE | 2022-11-22 10:51 | Diagnostic Imaging Report ---
EXAMINATION: 3D bilateral screening mammogram with CAD. INDICATION: Screening. COMPARISON: This study was compared to the prior exams of 11/24/2020 and 04/15/2019. PERSONAL HISTORY: At this time, there are no current complaints. FINDINGS: The fibroglandular tissue in both breasts is heterogeneously dense. This does limit the sensitivity of this exam. The previous exam did note numerous circumscribed masses throughout both breasts. The ultrasound examination of both breasts performed that same day noted multiple cysts in both breasts. On this exam, some of those rounded densities have decreased in size while the rounded density in the 12 o'clock position of the right breast is perhaps slightly greater. I do suspect that these are waxing and waning cysts. There is no primary or secondary sign of malignancy identified. IMPRESSION: 1. There is no evidence for malignancy. 2. The patient should have her annual bilateral screening mammogram on schedule in October 2023. ACR BI-RADS Category 1: Negative. Result letter will be mailed to the patient. Note: At least 10% of breast cancer is not imaged by mammography. Dictated by: Dictated on workstation # [id number]
== END ==
LOC: RAD 07:13
PROVIDERS: ATTEND Family Medicine
DX: Z12.31 Encounter for screening mammogram for malignant neoplasm of breast (principal); Z12.11 Encounter for screening for malignant neoplasm of colon
CPT/HCPCS: 77063; 77067

== ENCOUNTER 2022-12-07 19:31 | Outpatient (CLI) | payer OTHER | END 2022-12-08 06:20 | disposition home or self-care (01) | LOC: SLEEP 19:31 | PROVIDERS: ATTEND Family Medicine | DX: G47.33 Obstructive sleep apnea (adult) (pediatric) (principal) | CPT/HCPCS: 95811 ==